=== PATIENT | female | born 1935 | race Caucasian/White ===

== ENCOUNTER 2019-10-11 20:19 | Inpatient (IN) ==
[2019-10-11 21:05] LABS: Basophils # (auto) 0.01 K/uL (0-0.2); Basophils % (auto) 0.1 %; Eosinophils # (auto) 0.01 K/uL (0-0.5); Eosinophils % (auto) 0.1 %; Hematocrit (blood only) 40.3 % (37-47); Hemoglobin 13.3 g/dL (12.0-16.0); Immature Granulocytes # (auto) 0.01 K/uL (0.00-0.02); Immature Granulocytes % (auto) 0.1 %; Lymphocytes # (auto) 0.63 K/uL (1.2-3.4); Lymphocytes % (auto) 7.7 %; Mean Corpuscular Hemoglobin 26.4 pg (25-34); Mean Platelet Volume 9.2 fL (7.4-10.4); Monocytes # (auto) 0.85 K/uL (0.11-0.59); Monocytes % (auto) 10.3 %; Neutrophils # (auto) 6.71 K/uL (1.4-6.5); Neutrophils % (auto) 81.7 %; Platelet Count 336 K/uL (130-400); RDW Coefficient of Variation 15.6 % (11.5-14.5); RDW Standard Deviation 45.3 fL (36.4-46.3); Red Blood Count 5.04 M/uL (4.2-5.4); White Blood Count 8.22 K/uL (4.8-10.8)
[2019-10-11 21:13] LABS: Alanine Aminotransferase 38 U/L (12-78); Albumin Level 2.3 gm/dl (3.4-5.0); Aspartate Aminotransferase 39 U/L (15-37); BUN Creatinine Ratio 12.8 (10-20); Blood Urea Nitrogen 16 mg/dl (7-18); Calcium 8.5 mg/dl (8.5-10.1); Carbon Dioxide 28 mmol/L (21-32); Chloride 101 mmol/L (98-107); Creatinine Clr Calc Pharmacy 34.1 ml/min; Est GFR (African American) 45.1; Est GFR (Non-African American) 38.9; Glucose 130 mg/dl (70-99); Lipase 102 U/L (73-393); Potassium 3.3 mmol/L (3.5-5.1); Sodium 136 mmol/L (136-145)
[2019-10-11] MEDS ORDERED: ONDANSETRON INJ 2 MG/ML 2 ML VIAL IV STA (21:14)
[2019-10-11] MEDS ORDERED: SODIUM CHLORIDE 0.9% 1000ML 1,000 ML IV ONE (21:14)
[2019-10-11 21:16] LABS: Albumin Globulin Ratio 0.5 (0.9-2); Alkaline Phosphatase 106 U/L (45-117); Bilirubin,Total 0.5 mg/dl (0.2-1); Globulin 4.2 gm/dl (2.5-4.0); Total Protein 6.5 gm/dl (6.4-8.2)
--- NOTE | 2019-10-11 21:20 | Emergency Department Note ---
Impression & Plan Diffuse abdominal pain, Vomiting and diarrhea, Acute dehydration, Hypokalemia ED Provider Note NAME: DENISE ALEJO AGE: 84 SEX: F : 1935 ARRIVES VIA: Ambulance INFORMANT: [Patient] ED PROVIDER(S): [Jame Bolden MD] CHIEF COMPLAINT: Vomiting HISTORY OF PRESENT ILLNESS: The patient is an 84-year-old female presents to the ER with vomiting. She states that she has vomited at least 3 times today. She has also had some loose, watery diarrhea. No blood in the stool or in the vomit. She has had some intermittent abdominal pain but nothing lasting or persistent, no current abdominal pain. No fever, chills, cough or congestion. No shortness of breath or chest pain. The patient does have known gallbladder disease and is concerned that her gallbladder is what is causing her to vomit. There have been no urinary complaints, no fall no trauma. The patient states that she is dry heaving continuously, she then progresses to the point of vomiting. She cannot keep anything down by mouth. REVIEW OF SYSTEMS: See HPI for pertinent positives and negatives. A total of ten systems were reviewed and were otherwise negative. PMHx/PSHx: See Below SOCIAL HISTORY: See Below. PHYSICAL EXAM: GENERAL: Patient is in no acute distress. HEENT: No acute trauma, normocephalic atraumatic, mucous membranes moist, no nasal congestion, mild scleral icterus. NECK: No stridor, no adenopathy, no meningismus, trachea is midline. LUNGS: Clear to auscultation bilaterally, no wheeze, no rhonchi, breath sounds equal. HEART: Without murmurs gallops or rubs, irregular rhythm, normal rate. ABDOMEN: Soft, nontender, bowel sounds positive, no hernias, no peritonitis. EXTREMITIES: No cyanosis or edema, full range of motion of all the joints without pain or difficulty, no signs for acute trauma. NEUROLOGIC: Awake and alert, no acute motor or sensory deficits, no focal weakness. SKIN: No rash, possible mild jaundice, no diaphoresis. DIFFERENTIAL DIAGNOSIS: Appendicitis, ovarian cyst, ovarian torsion, infections, diverticulitis, UTI, obstruction, mesenteric ischemia, aortic pathology, inflammatory bowel disease, renal colic, PUD, pancreatitis, biliary pathology, dehydration, gastritis, hernia, volvulus, constipation, as well as other pathologies. EMERGENCY DEPARTMENT COURSE/PROCEDURES: ECG: Indication was vomiting. The EKG shows atrial fibrillation with a PVC. The rate is 97. There is some diffuse nonspecific ST change. No ST elevation. The QTc is 495. Continuous Cardiac Monitoring: An order was placed for continuous cardiac monitoring. The monitor shows a rate of 105 with atrial fibrillation. MEDICAL DECISION MAKING: There is no leukocytosis or concerning anemia. There is a normal platelet count. Potassium was slightly low at 3.3. Creatinine was mildly elevated at 1.25. Patient had a slight elevation to her AST, the bilirubin was normal. No evidence for pancreatitis by her testing. EKG showed atrial fibrillation, no ac estelita ischemia. Cardiac enzyme testing x1 is not consistent with acute cardiac injury. Urinalysis shows what appears to be contamination, the patient is not having any urinary symptoms. Chest film showed some chronic parenchymal change and cardiomegaly. I saw no free air or pneumonia. Gallbladder ultrasound did not show evidence for acute cholecystitis, a gallstone was thought probable/possible. Abdominal and pelvis CT is currently pending. The patient presents with ongoing vomiting and some intermittent diarrhea. Today, she had a lot of vomiting and was sent here for the possibility of dehydration. The patient received IV saline for hydration. She was given IV potassium, IV Zofran, she is currently resting comfortably. I spoke to the patient and her daughter. They were both happy we were doing some work-up as the symptoms have been ongoing. The patient did apparently have an upcoming appointment with general surgery. As per the patient and her daughter, no significant work-up for her symptoms has been performed prior to the visit here in the ED. The patient's case is being assumed by Dr. Medina, please see his notes for the results of the CT and the final disposition and plan. At this point, the cause for her symptoms is not completely clear. Past Med/Surg History Medical History Atrial fibrillation Diabetes mellitus Hypertension Social History Feels Safe at Home: Yes Smoking Status: Former smoker Allergies Allergies Allergy/AdvReac Type Severity Reaction Status Date / Time No Known Allergies Allergy Verified 10/11/19 21:27 Home Meds Home Medications Medication Instructions Recorded Confirmed acetaminophen [Non-Aspirin] 650 mg PO Q4H PRN MDD 3000 MG 10/11/19 10/11/19 APAP/24 HOURS amiodarone 200 mg PO AMHS 10/11/19 10/11/19 apixaban [Eliquis] 2.5 mg PO BID 10/11/19 10/11/19 atorvastatin 40 mg PO HS 10/11/19 10/11/19 bisacodyl 10 mg [place] DAILY PRN 10/11/19 10/11/19 cholecalciferol (vitamin D3) 50,000 unit PO DIRECTED 10/11/19 10/11/19 cyanocobalamin (vitamin B-12) 1,000 mcg PO DAILY 10/11/19 10/11/19 [Vitamin B-12] diclofenac sodium 1 g TOPICAL TID 10/11/19 10/11/19 diltiazem HCl 120 mg PO QPM 10/11/19 10/11/19 ezetimibe 10 mg PO HS 10/11/19 10/11/19 furosemide 20 mg PO 3XWK 10/11/19 10/11/19 ketoconazole 1 applic TOPICAL 2XWK 10/11/19 10/11/19 ketoconazole 1 applic TOPICAL BID 10/11/19 10/11/19 lanolin-mineral oil [Eucerin 1 applic TOPICAL BID 10/11/19 10/11/19 Original] lisinopril 10 mg PO DAILY 10/11/19 10/11/19 magnesium hydroxide [Milk of 30 ml PO DIRECTED PRN 10/11/19 10/11/19 Magnesia] metformin 500 mg PO BID 10/11/19 10/11/19 metoprolol tartrate 100 mg PO BID 10/11/19 10/11/19 sennosides-docusate sodium [Senna 1 tab PO 3XWK 10/11/19 10/11/19 Plus] sertraline 50 mg PO QAM 10/11/19 10/11/19 sodium phosphates [Enema] 118 ml [place] DIRECTED PRN 10/11/19 10/11/19 tolnaftate [Tinactin] 1 applic TOPICAL DIRECTED 10/11/19 10/11/19 Results & Data (ED) Vital Signs Vital Signs - 24 hr 10/11/19 20:21 10/11/19 20:25 10/11/19 20:26 Temperature 36.7 C Temperature Source Oral Pulse Rate 105 H 90 106 H Pulse Rate from SpO2 Sensor 109 H 90 107 H Respiratory Rate 24 16 17 Respiratory Effort / Characteristics Non-Labored Spontaneous Respiratory Depth Normal Respiratory Pattern Regular Blood Pressure 149/92 H 151/81 H 149/92 H Blood Pressure Mean 100 110 111 Pulse Oximetry 95 96 96 Oxygen Delivery Method Room Air Sepsis Recent Fever Within 48 Hours No Sepsis New/Unexplained Change in Mental Status No Sepsis Action Taken by Nursing No Action Required 10/11/19 20:30 10/11/19 20:31 10/11/19 21:00 Temperature Temperature Source Pulse Rate 107 H 95 H 108 H Pulse Rate from SpO2 Sensor 108 H 110 H 107 H Respiratory Rate 24 18 28 H Respiratory Effort / Characteristics Respiratory Depth Respiratory Pattern Blood Pressure 136/87 137/85 Blood Pressure Mean 90 106 Pulse Oximetry 95 94 96 Oxygen Delivery Method Sepsis Recent Fever Within 48 Hours Sepsis New/Unexplained Change in Mental Status Sepsis Action Taken by Nursing 10/11/19 21:01 10/11/19 21:30 10/11/19 21:31 Temperature Temperature Source Pulse Rate 105 H 104 H 94 H Pulse Rate from SpO2 Sensor 101 H 110 H 106 H Respiratory Rate 22 25 H 30 H Respiratory Effort / Characteristics Respiratory Depth Respiratory Pattern Blood Pressure 146/117 H Blood Pressure Mean 127 Pulse Oximetry 96 95 97 Oxygen Delivery Method Sepsis Recent Fever Within 48 Hours Sepsis New/Unexplained Change in Mental Status Sepsis Action Taken by Nursing 10/11/19 21:45 10/11/19 21:46 10/11/19 22:00 Temperature Temperature Source Pulse Rate 96 H 100 H 100 H Pulse Rate from SpO2 Sensor 104 H 110 H 104 H Respiratory Rate 32 H 25 H 20 Respiratory Effort / Characteristics Respiratory Depth Respiratory Pattern Blood Pressure 147/91 H 156/87 H Blood Pressure Mean 122 113 Pulse Oximetry 97 97 96 Oxygen Delivery Method Sepsis Recent Fever Within 48 Hours Sepsis New/Unexplained Change in Mental Status Sepsis Action Taken by Nursing 10/11/19 22:01 10/11/19 22:56 10/11/19 22:57 Temperature Temperature Source Pulse Rate 96 H 104 H 105 H Pulse Rate from SpO2 Sensor 100 H 100 H Respiratory Rate 25 H 23 25 H Respiratory Effort / Characteristics Respiratory Depth Respiratory Pattern Blood Pressure 133/97 Blood Pressure Mean 112 Pulse Oximetry 96 96 Oxygen Delivery Method Sepsis Recent Fever Within 48 Hours Sepsis New/Unexplained Change in Mental Status Sepsis Action Taken by Group Home Medications Current Medication List: was personally reviewed by me Laboratory Data Attestation: I reviewed the patient's lab results. Result diagrams: 10/11/19 20:25 10/11/19 20:25 Lab Results 10/11/19 10/11/19 10/11/19 Range/Units 20:25 20:25 21:47 WBC 8.22 (4.8-10.8) K/uL RBC 5.04 (4.2-5.4) M/uL Hgb 13.3 (12.0-16.0) g/dL Hct 40.3 (37-47) % MCV 80.0 (80-100) fL MCH 26.4 (25-34) pg MCHC 33.0 (32-36) g/dL RDW Std Deviation 45.3 (36.4-46.3) fL RDW Coeff of Addi 15.6 H (11.5-14.5) % Plt Count 336 (130-400) K/uL MPV 9.2 (7.4-10.4) fL Immature Gran % (Auto) 0.1 % Neut % (Auto) 81.7 % Lymph % (Auto) 7.7 % [place] % (Auto) 10.3 % Eos % (Auto) 0.1 % Baso % (Auto) 0.1 % Immature Gran # (Auto) 0.01 (0.00-0.02) K/uL Neut # (Auto) 6.71 H (1.4-6.5) K/uL Lymph # (Auto) 0.63 L (1.2-3.4) K/uL [place] # (Auto) 0.85 H (0.11-0.59) K/uL Eos # (Auto) 0.01 (0-0.5) K/uL Baso # (Auto) 0.01 (0-0.2) K/uL Sodium 136 (136-145) mmol/L Potassium 3.3 L (3.5-5.1) mmol/L Chloride 101 (98-107) mmol/L Carbon Dioxide 28 (21-32) mmol/L Anion Gap 7.0 (3-11) BUN 16 (7-18) mg/dl Creatinine 1.25 H (0.6-1.2) mg/dl Est Cr Clr Drug Dosing 34.1 ml/min Est GFR ( Amer) 45.1 Est GFR (Non-Af Amer) 38.9 BUN/Creatinine Ratio 12.8 (10-20) Glucose 130 H (70-99) mg/dl Calcium 8.5 (8.5-10.1) mg/dl Total Bilirubin 0.5 (0.2-1) mg/dl AST 39 H (15-37) U/L ALT 38 (12-78) U/L Alkaline Phosphatase 106 (45-117) U/L Troponin I < 0.015 (0-0.045) ng/ml Total Protein 6.5 (6.4-8.2) gm/dl Albumin 2.3 L (3.4-5.0) gm/dl Globulin 4.2 H (2.5-4.0) gm/dl Albumin/Globulin Ratio 0.5 L (0.9-2) Lipase 102 (73-393) U/L Urine Color Yellow Urine Appearance Cloudy A (Clear) Urine pH 5.0 (4.5-7.5) Ur Specific [place] 1.011 (1.000-1.030) Urine Protein 2+ H (Negative) Urine Glucose (UA) Negative (Negative) Urine Ketones Negative (Negative) Urine Blood Trace H (Negative) Urine Nitrite Negative (Negative) Urine Bilirubin Negative (Negative) Urine Urobilinogen Negative (Negative) Ur Leukocyte Esterase Trace H (Negative) Urine WBC (Auto) 5-10 H (0-5) /hpf Urine RBC (Auto) 5-10 H (0-4) /hpf U Hyaline Cast (Auto) 1-5 (0-5) /lpf U Epithel Cells (Auto) >30 H (0-5) /lpf Urine Bacteria (Auto) 3+ H (Negative) Administered Medications Ioversol (Optiray 320 100ml) 100 ml IV ONCE PRN PRN Reason: Interaction Checking Stop: 10/15/19 23:35 Last Admin: 10/11/19 23:36 Dose: 93 ml Documented by: [id number] Discontinued Medications Sodium Chloride (Nss 1000ml) 1,000 mls @ 999 mls/hr IV .Q1H1M ONE Stop: 10/11/19 22:14 Last Infusion: 10/11/19 23:03 Dose: 0 mls/hr Documented by: [id number] Admin: 10/11/19 21:45 Dose: 999 mls/hr Documented by: [id number] Potassium Chloride (K Wallace / Wtr) 10 meq in 100 mls @ 100 mls/hr IV ONE ONE Stop: 10/11/19 22:59 Last Infusion: 10/11/19 23:12 Dose: 0 mls/hr Documented by: [id number] Admin: 10/11/19 22:10 Dose: 100 mls/hr Documented by: [id number] Ondansetron HCl (Zofran) 4 mg IV NOW STA Stop: 10/11/19 21:15 Last Admin: 10/11/19 21:45 Dose: 4 mg Documented by: [id number] Imaging Data Attestation: I personally reviewed and interpreted this imaging study as follows: My Impression: Chest film: The patient does have some cardiomegaly. There is some chronic parenchymal collin nge I suspect. I see no infiltrate, no pneumothorax. No free air. Radiologist's Impression: Ultrasound of the gallbladder: There is an echogenic foci in the gallbladder measuring 4 mm. This is consistent with a possible stone or polyp. No significant gallbladder wall thickening. The common bile duct was at the upper limits of normal at 8 mm. There is a small left renal cystic structure measuring 1.3 cm. Abdominal and pelvis CT: Pending. Blood Pressure Blood Pressure Findings: Elevated blood pressure Blood Pressure Disposition: further management by hospitalist Discharge Plan Visit Data Chief Complaint: Vomiting Stated Complaint: abd pain, [facility] ED Provider: Gianfranco Medina Discharge Problem: Diffuse abdominal pain, Vomiting and diarrhea, Acute dehydration, Hypokalemia Patient Disposition: Still a Patient Condition: Good Forms Stand Alone Forms: My [employer] Prescriptions Prescriptions: No Action atorvastatin 40 mg tablet 40 mg PO HS RF: 0 metformin 500 mg tablet 500 mg PO BID RF: 0 acetaminophen [Non-Aspirin] 325 mg Tablet 650 mg PO Q4H MDD 3000 MG APAP/24 HOURS PRN (Reason: Fever Or Pain) RF: 0 ketoconazole 2 % shampoo 1 applic TOPICAL 2XWK RF: 0 metoprolol tartrate 100 mg tablet 100 mg PO BID RF: 0 amiodarone 200 mg tablet 200 mg PO AMHS RF: 0 sennosides-docusate sodium [Senna Plus] 8.6-50 mg Tablet 1 tab PO 3XWK RF: 0 cyanocobalamin (vitamin B-12) [Vitamin B-12] 1,000 mcg tablet 1,000 mcg PO DAILY RF: 0 magnesium hydroxide [Milk of Magnesia] 400 mg/5 mL Suspension 30 ml PO DIRECTED PRN (Reason: Constipation) RF: 0 bisacodyl 10 mg Suppository 10 mg LA DAILY PRN (Reason: Constipation) RF: 0 lisinopril 10 mg tablet 10 mg PO DAILY RF: 0 Enema 19-7 gram/118 mL Enema 118 ml LA DIRECTED PRN (Reason: Constipation) RF: 0 diltiazem HCl 120 mg capsule,extended release 24hr 120 mg PO QPM RF: 0 tolnaftate [Tinactin] 1 % Powder 1 applic TOPICAL DIRECTED RF: 0 furosemide 20 mg tablet 20 mg PO 3XWK RF: 0 ketoconazole 2 % Cream 1 applic TOPICAL BID RF: 0 sertraline 50 mg tablet 50 mg PO QAM RF: 0 ezetimibe 10 mg tablet 10 mg PO HS RF: 0 Eucerin Original Lotion 1 applic TOPICAL BID RF: 0 cholecalciferol (vitamin D3) 1,250 mcg (50,000 unit) Capsule 50,000 unit PO DIRECTED RF: 0 diclofenac sodium 1 % gel 1 g TOPICAL TID RF: 0 Eliquis 2.5 mg tablet 2.5 mg PO BID RF: 0 Referrals Referrals: Jacobo Hutton [Primary Care Provider] -
[2019-10-11 21:57] LABS: Appearance Urine Cloudy (Clear); Bacteria Urine Automated 3+ (Negative); Bilirubin Urine Negative (Negative); Blood Urine Trace (Negative); Color Urine Yellow; Epithelial Cell Urine Auto >30 /lpf (0-5); Glucose Urine UA Negative (Negative); Ketones Urine Negative (Negative); Leukocyte Esterase Urine Trace (Negative); Nitrite Urine Negative (Negative); Protein Urine 2+ (Negative); Specific Gravity Urine 1.011 (1.000-1.030); Urobilinogen Urine Negative (Negative)
[2019-10-11] MEDS ORDERED: POTASSIUM CHLORIDE / WTR 10 MEQ/100 ML PLCT IV ONE (22:00)
[2019-10-11 22:31] LABS: Troponin I < 0.015 ng/ml (0-0.045)
[2019-10-11] MEDS ORDERED: IOVERSOL 100ml IV PRN (23:36)
--- NOTE | 2019-10-11 23:42 | Emergency Department Note ---
ED Visit Note ED Physician Sign Out Note: 84 yr old female with several months of nausea and vomiting concerning for GB pathology with worsening symptoms over the last day. Associated with diarrhea as well. She was given fluids, zofran and potassium earlier as well. Initially evaluated and work-up by Dr Bolden who signed patient out to me pending results of CT to rule out obstruction, etc. CT with concern Colitis vs Diverticulitis. Exam with mild LLQ abdominal pain but no guarding/rebound. Currently stable. Discussed pros/cons hospitalization and with shared decision making will bring in for further management. Given IV cipro/flagyl and hospitalist consulted for further management. Of note, UA clean catch with Bacteria, could just be contaminant though CT with bladder wall thickening as well. Cipro should cover it though. Gianfranco Medina MD
[2019-10-12] MEDS ORDERED: CIPROFLOXACIN / D5W 400 MG/200 ML BAG IV STA (00:20)
[2019-10-12] MEDS ORDERED: metroNIDAZOLE 500 MG/100 ML BAG IV STA (00:20)
--- NOTE | 2019-10-12 01:35 | History & Physical Report ---
Date of Service October 12, 2019 Assessment & Plan (1) Diverticulitis large intestine: Patient is a very pleasant 84 year old female with PMHx Atrial Fibrillation, DM2, HTN who presents with chief complaint of nausea, vomiting, and diarrhea. ED Course: NSS 1L, Zofran 4mg IV, 10 meq K IV, Ciprofloxacin 400mg IV, Metronidazole 500mg IV Diverticulitis -CT Ab/Pelv statrad read read diverticulosis with wall thickening and mild adjacent stranding involving the mid-distal descending and proximal sigmoid colon. Also noted gallbladder poly/stone. -GB US noted a 4mm polyp/stone in GB without GB wall thickening. -Patient was to have appointment with Dr. Lake (Gen Surg) on 10/13/19 to discuss her gallbladder -Ciprofloxacin 400mg IV q12h -Metronidazole 500mg IV q8h -NPO -Zofran PRN nausea -Tylenol PRN pain Acute Dehydration, secondary to Vomiting and Diarrhea -Zofran PRN nausea -NSS + 20meq K 100ml/hr Hypokalemia -Given 10meq K in ED -continue repletion with NSS + 20meq K 100ml/hr UTI -UA relatively dirty with Leuk Est, WBC, Bacteria 3+ -Expect coverage while on ciprofloxacin Atrial Fibrillation -Continue home Amiodarone -Continue home Diltiazem -Continue home Metoprolol Tartrate -Continue home Eliquis Diabetes Mellitus -SSI -Lantus 5mg qAM -Hold metformin -Continue home Atorvastatin -Continue home Ezetimibe Hypertension -Continue home Metoprolol tartrate -Continue home Diltiazem -Continue home Lisinopril -Continue home Lasix Dispo: Med/Surg Tele FEN: NPO, NSS +20meq KCl 100ml/hr x2L DVT: SCDs, Eliquis 2.5mg BID Code: DNR/DNi (2) Hypokalemia: (3) Acute dehydration: (4) Vomiting and diarrhea: (5) Diffuse abdominal pain: (6) Atrial fibrillation: (7) Hypertension: (8) Diabetes mellitus: (9) UTI (urinary tract infection): History of Present Illness Chief Complaint: Vomiting Primary Care Provider: Jacobo Hutton Patient is a very pleasant 84 year old female with PMHx Atrial Fibrillation, DM2, HTN who presents with chief complaint of nausea, vomiting, and diarrhea. Patient notes that her symptoms have actually been ongoing for "a few months now" and that she felt it was related to her gallbladder. She was to have an appointment with Dr. Lake on 10/13/19 to discuss possible removal. She states that at Noon today, after lunch, she had an episode of nausea and emesis after consuming tomato soup. She denies any hematochezia or dark coffee ground emesis. She notes that she had significant nausea with retching without vomit around dinner after consuming chicken noodle soup. Also throughout the day, patient noted 2x episodes of diarrhea without blood or tarry black stools, but cannot recall when they occurred. She notes that nothing specifically seems to trigger her symptoms. Currently patient notes that she feels over all well and denies any chest pain, abdominal pain, SOB, fever, chills. Allergies Allergy/AdvReac Type Severity Reaction Status Date / Time No Known Allergies Allergy Verified 10/11/19 21:27 Home Medications Home Medications Medication Instructions Recorded Confirmed Type Eliquis 2.5 mg PO BID 10/11/19 10/11/19 History Enema 118 ml [place] DIRECTED PRN 10/11/19 10/11/19 History Eucerin Original 1 applic TOPICAL BID 10/11/19 10/11/19 History acetaminophen [Non-Aspirin] 650 mg PO Q4H PRN MDD 3000 MG 10/11/19 10/11/19 History APAP/24 HOURS amiodarone 200 mg PO AMHS 10/11/19 10/11/19 History atorvastatin 40 mg PO HS 10/11/19 10/11/19 History bisacodyl 10 mg [place] DAILY PRN 10/11/19 10/11/19 History cholecalciferol (vitamin D3) 50,000 unit PO DIRECTED 10/11/19 10/11/19 History cyanocobalamin (vitamin B-12) 1,000 mcg PO DAILY 10/11/19 10/11/19 History [Vitamin B-12] diclofenac sodium 1 g TOPICAL TID 10/11/19 10/11/19 History diltiazem HCl 120 mg PO QPM 10/11/19 10/11/19 History ezetimibe 10 mg PO HS 10/11/19 10/11/19 History furosemide 20 mg PO 3XWK 10/11/19 10/11/19 History ketoconazole 1 applic TOPICAL 2XWK 10/11/19 10/11/19 History ketoconazole 1 applic TOPICAL BID 10/11/19 10/11/19 History lisinopril 10 mg PO DAILY 10/11/19 10/11/19 History magnesium hydroxide [Milk of 30 ml PO DIRECTED PRN 10/11/19 10/11/19 History Magnesia] metoprolol tartrate 100 mg PO BID 10/11/19 10/11/19 History sennosides-docusate sodium [Senna 1 tab PO 3XWK 10/11/19 10/11/19 History Plus] sertraline 50 mg PO QAM 10/11/19 10/11/19 History tolnaftate [Tinactin] 1 applic TOPICAL DIRECTED 10/11/19 10/11/19 History ciprofloxacin HCl 500 mg PO BID #14 tab 10/14/19 Rx metformin 500 mg PO BID #60 tab 10/14/19 Rx metronidazole 500 mg PO Q8H 7 Days #21 tab 10/14/19 Rx Past Med/Surg History Medical History Atrial fibrillation Diabetes mellitus Hypertension Social History Preferred Language: Cambodian Communication Ability: Effective Mixing Engineer Required: No Beliefs That Will Affect Care: None Current Living Situation: Personal Care Facility Feels Safe at Home: Yes Smoking Status: Former smoker Tobacco Type: cigarettes ; Second Hand Exposure: No ; Hx Alcohol Use: Yes Hx Substance Use: No Review of Systems Constitutional: no fever, no chills, no fatigue and no weakness Eyes: no worsening vision Ear, Nose, Mouth, Throat: no ear pain, no tinnitus and no dizziness Respiratory: + dyspnea (noted when vomiting or dry heaving, not current ); no cough and no hemoptysis Cardiovascular: no chest pain, no chest pain with activity, no radiating jaw, neck or arm pain, no dyspnea on exertion and no lightheadedness Gastrointestinal: + vomiting (earlier today, not current) and + diarrhea/loose stools (earlier today); no abdominal pain, no nausea (improved with zofran ), no coffee ground emesis, no hematemesis, no blood in stools and no melena Genitourinary: no dysuria, no difficulty urinating, no urinary frequency and no hematuria Musculoskeletal: no back pain Integumentary: no rash Neurologic: no falls Physical Exam Constitutional: WD/WN, vitals as above cooperative; no acute distress and not diaphoretic Eyes: PERRL, conjunctivae normal, anicteric sclerae ENMT: external ear and nose normal, oropharynx normal Mouth: + dentures and + edentulous Neck: trachea midline, no thyromegaly Respiratory: normal respiratory effort, lungs clear to auscultation Cardiovascular: Rate/Rhythm: + irregularly irregular Heart Sounds: no murmur Vessels: no JVD Extremities: no calf tenderness Gastrointestinal (Abdomen): Inspection/Auscultation: abdomen normal to inspection and normal bowel sounds; abdomen not distended Percussion/Palpation: + abdomen tender (LLQ ) and abdomen soft; abdomen not rigid, no abdominal mass and abdomen not firm Musculoskeletal: no cyanosis or clubbing, extremities motor strength 5/5 Skin: no rashes, warm and dry Neurologic: PERRL, EOMI, accommodation nl, no face palsy, no dysarthria Psychiatric: A+Ox3, euthymic affect Results & Data Results & Data ([facility]) Vital Signs (Past 12 Hours) Vital Signs Temp Pulse Resp BP Pulse Ox 10/12/19 01:01 95 H 22 97 10/12/19 01:00 84 22 135/88 96 10/12/19 00:31 100 H 20 95 10/12/19 00:30 94 H 19 145/98 H 95 10/12/19 00:01 101 H 17 96 10/12/19 00:00 98 H 19 154/100 H 94 10/11/19 23:44 85 22 97 10/11/19 23:43 92 H 26 H 143/102 H 96 10/11/19 23:32 97 H 20 10/11/19 23:01 93 H 31 H 96 10/11/19 23:00 103 H 30 H 152/84 H 98 10/11/19 22:58 97 H 25 H 97 10/11/19 22:57 105 H 25 H 133/97 96 10/11/19 22:56 104 H 23 10/11/19 22:01 96 H 25 H 96 10/11/19 22:00 100 H 20 156/87 H 96 10/11/19 21:46 100 H 25 H 97 10/11/19 21:45 96 H 32 H 147/91 H 97 10/11/19 21:31 94 H 30 H 97 10/11/19 21:30 104 H 25 H 146/117 H 95 10/11/19 21:01 105 H 22 96 10/11/19 21:00 108 H 28 H 137/85 96 10/11/19 20:31 95 H 18 94 10/11/19 20:30 107 H 24 136/87 95 10/11/19 20:26 36.7 C 106 H 17 149/92 H 96 10/11/19 20:25 90 16 151/81 H 96 10/11/19 20:21 105 H 24 149/92 H 95 Code Status & VTE Plan VTE Prophylaxis Plan VTE Prophylaxis will be ordered: Yes Supervising Physician Co-Signing Physician Notes Patient seen and examined on date of admission 10/12/19, chart reviewed, case discussed with Dr. Berrios and I agree with his assessment and plan as documented above. Briefly, patient is an 84yo C female with history of AF, DM, HTN pre senting with nausea/vomiting/diarrhea. Found to have diverticulosis with diverticulitis. On exam she is afebrile, HD stable, non-toxic in appearance HEENT - NC/AT, PERRL, EOMI, MMM Heart - +S1/S2, irregularly irregular LUngs - CTA Abd - mild tenderness in LLQ with no rebound/guarding/peritoneal signs, abdomen soft, ND Ext - No edema Labs and images reviewed Assessment/Plan - Diverticulitis -Cipro/Flagyl, symptomatic management -Remainder of plan as above PG Care Time/CCT Total # of Minutes Spent Total Time Spent with Patient: Total time spent is greater than 50% in coordination of care (as documented) at patient's floor/unit and/or counseling patient: Coding Level of Care Code 37743 Initial Inpt Care Lvl 3 Diagnoses Diverticulitis large intestine K57.32 Hypokalemia E87.6 Acute dehydration E86.0 Vomiting and diarrhea R11.10; R19.7 Diffuse abdominal pain R10.84 Atrial fibrillation I48.91 Hypertension I10 Diabetes mellitus E11.9 UTI (urinary tract infection) N39.0 Resident Activity Tracking Resident Involvement: Resident Care Provided Care Provided: Adult Hospital Medicine
[2019-10-12] MEDS ORDERED: GLUCOSE 40% GEL 15 GM TUBE PO PRN (02:27)
[2019-10-12] MEDS ORDERED: CARBOHYDRATES FOR HYPOGLYCEMIA PO PRN (02:27)
[2019-10-12] MEDS ORDERED: GLUCAGON FOR INJ 1 MG VIAL SQ PRN (02:27)
[2019-10-12] MEDS ORDERED: ACETAMINOPHEN 325 MG TAB PO PRN (02:27)
[2019-10-12] MEDS ORDERED: GLUCOSE 10 TABS/TUBE PO PRN (02:27)
[2019-10-12] MEDS ORDERED: DEXTROSE 50% 50 ML SYRINGE IV PRN (02:27)
[2019-10-12] MEDS ORDERED: ONDANSETRON INJ 2 MG/ML 2 ML VIAL IV PRN (02:27)
[2019-10-12] MEDS: NSS + 20MEQ KCL 20 MEQ/1,000 ML BAG IV SCH ×2 (04:21→13:18)
[2019-10-12] MEDS: INSULIN ASPART 100 UNITS/ML 3 ML PEN SC SCH ×3 (06:28→18:05)
--- NOTE | 2019-10-12 07:05 | Ultrasound Report ---
ULTRASOUND RIGHT UPPER QUADRANT ABDOMEN CLINICAL HISTORY: Vomiting. Generalized abdominal pain. Jaundice. COMPARISON STUDY: No priors. TECHNIQUE: Real-time, grayscale, and color flow sonography of the right upper quadrant of the abdomen was performed. Images are reviewed in the transverse and longitudinal planes. FINDINGS: Liver: The liver is normal in size and heterogeneous in echotexture. There is no intrahepatic biliary ductal dilatation. The main portal vein is patent. Gallbladder: A small calcified nonmobile/adherent gallstone is noted. A 4 mm gallbladder polyp is inc identally noted. There is no gallbladder wall thickening or pericholecystic fluid. A sonographic Murp hy's sign is reportedly absent. The common bile duct measures up to 0.8 cm in diameter. Pancreas: Visualized portions of the pancreatic head and body are normal in appearance. The splenic v ein is patent. Right kidney: Survey images of the right kidney demonstrate cortical atrophy. There is no hydronephro sis. 1.3 cm cyst is noted in the lower pole. Ascites: None. IMPRESSION: 1. No acute sonographic abnormality is identified. 2. A 4 mm gallbladder polyp and a nonmobile gallstone are incidentally noted. 3. There is no intra or extrahepatic biliary ductal dilatation. ACT 112: Negative or not required by law. Electronically signed by: Jame Christina M.D. 10/12/2019 7:03 AM
--- NOTE | 2019-10-12 07:11 | XRay Report ---
SINGLE VIEW CHEST CLINICAL HISTORY: Epigastric abdominal pain. FINDINGS: An AP, portable, upright chest radiograph is obtained. No prior studies are available for c omparison at the time of dictation. The examination is degraded by portable technique and patient rot ation. The heart is enlarged noting atherosclerotic calcification of the thoracic aorta. The pulmona ry vasculature is noncongested. There is bibasilar scarring/atelectasis. No airspace consolidation or large pleural effusion is identified. No pneumothorax is seen. The skeletal structures are osteopeni c. There are healed rib fractures. IMPRESSION: Cardiomegaly with no acute cardiopulmonary abnormality. ACT 112: Negative or not required by law. Electronically signed by: Jame Christina M.D. 10/12/2019 7:10 AM
--- NOTE | 2019-10-12 07:24 | CT Scan Report ---
CT abd pelvis IV con only CT DOSE: 994.66 mGy.cm HISTORY: Pain. Nausea. vomiting, poss obstruc vs colitis TECHNIQUE: Multiaxial CT images of the abdomen and pelvis were performed following the use of intrave nous contrast. A dose lowering technique was utilized adhering to the principles of ALARA. COMPARISON STUDY: None. FINDINGS: Lung bases are clear. The liver spleen and pancreas are unremarkable. Possible small gallbladder polyp. Kidneys are negative for hydronephrosis. Several renal calcifications as well as several small cysts. Nonobstructive bowel pattern within the abdomen and pelvis. Findings consistent with diverticulosis of the sigmoid as well as mid to distal descending colon. The re is a trace amount of pericolonic infiltrative change suggesting a component of acute diverticuliti s. No evidence for abscess collection or obstructive change. IMPRESSION: 1. Acute descending and sigmoid diverticulitis. 2. No evidence for abscess collection or obstructive change. 3. Small gallbladder polyp. 4. Renal nephrocalcinosis as well as a small right renal cyst all of which are considered nonobstruct papa. ACT 112: Negative or not required by law. The above report was generated using voice recognition software. It may contain grammatical, syntax or spelling errors. Electronically signed by: Herbert Echols M.D. 10/12/2019 7:23 AM
[2019-10-12] MEDS: lisinopriL 10 MG TAB PO SCH (08:37)
[2019-10-12] MEDS: APIXABAN 2.5 MG TAB PO SCH ×2 (08:37→21:20)
[2019-10-12] MEDS: AMIODARONE 200 MG TAB PO SCH ×2 (08:37→21:20)
[2019-10-12] MEDS: CYANOCOBALAMIN 500 MCG TABLET (VITAMIN B-12) PO SCH (08:37)
[2019-10-12] MEDS: METOPROLOL TARTRATE 100 MG TAB PO SCH ×2 (08:37→21:20)
[2019-10-12] MEDS: SERTRALINE HCL 50 MG TABLET PO SCH (08:38)
[2019-10-12] MEDS: INSULIN GLARGINE SOLOSTAR 100 UNITS/ML 3 ML PEN SC SCH (08:38)
[2019-10-12] MEDS: metroNIDAZOLE 500 MG/100 ML BAG IV SCH ×2 (10:56→18:03)
--- NOTE | 2019-10-12 12:02 | Electrocardiogram Report ---
Test Reason : Blood Pressure : / mmHG Vent. Rate : 097 BPM Atrial Rate : 107 BPM P-R Int : 000 ms QRS Dur : 096 ms QT Int : 390 ms P-R-T Axes : 000 095 -61 degrees QTc Int : 495 ms Atrial fibrillation with premature ventricular or aberrantly conducted complexes Rightward axis Nonspecific ST and T wave abnormality Abnormal ECG No previous ECGs available Confirmed by Alfred Lozada ([id number]) on 10/12/2019 12:01:42 PM Referred By: REFERRED SELF Confirmed By:Alfred Lozada
[2019-10-12] MEDS: CIPROFLOXACIN / D5W 400 MG/200 ML BAG IV SCH (13:18)
[2019-10-12 17:21] LABS: Basophils # (auto) 0.02 K/uL (0-0.2); Basophils % (auto) 0.4 %; Eosinophils # (auto) 0.02 K/uL (0-0.5); Eosinophils % (auto) 0.4 %; Hematocrit (blood only) 38.6 % (37-47); Hemoglobin 12.6 g/dL (12.0-16.0); Immature Granulocytes # (auto) 0.01 K/uL (0.00-0.02); Immature Granulocytes % (auto) 0.2 %; Lymphocytes # (auto) 0.62 K/uL (1.2-3.4); Lymphocytes % (auto) 11.5 %; Mean Corpuscular Hemoglobin 26.3 pg (25-34); Mean Corpuscular Hgb Conc 32.6 g/dL (32-36); Mean Corpuscular Volume 80.4 fL (80-100); Mean Platelet Volume 9.2 fL (7.4-10.4); Monocytes # (auto) 0.65 K/uL (0.11-0.59); Neutrophils # (auto) 4.09 K/uL (1.4-6.5); Neutrophils % (auto) 75.5 %; Platelet Count 332 K/uL (130-400); RDW Coefficient of Variation 15.7 % (11.5-14.5); RDW Standard Deviation 45.8 fL (36.4-46.3); White Blood Count 5.41 K/uL (4.8-10.8)
[2019-10-12 17:51] LABS: BUN Creatinine Ratio 12.2 (10-20); Calcium 8.1 mg/dl (8.5-10.1); Creatinine Clr Calc Pharmacy 38.1 ml/min; Est GFR (Non-African American) 49.2; Potassium 3.5 mmol/L (3.5-5.1)
[2019-10-12] MEDS: dilTIAZem HCL 120 MG CAPCR PO SCH (21:20)
[2019-10-12] MEDS: EZETIMIBE 10 MG TABLET PO SCH (21:20)
[2019-10-12] MEDS: ATORVASTATIN 40 MG TAB PO SCH (21:21)
--- NOTE | 2019-10-12 22:35 | Communication Note ---
Date of Service: October 12, 2019 Patient reports feeling better this evening. Patient has no new complaints. She is reporting that she is hungry. Will continue with antibiotics and will remain NPO at the time I updated her family.
[2019-10-13] MEDS: INSULIN ASPART 100 UNITS/ML 3 ML PEN SC SCH ×5 (00:31→20:56)
[2019-10-13] MEDS: CIPROFLOXACIN / D5W 400 MG/200 ML BAG IV SCH ×2 (00:38→12:31)
[2019-10-13] MEDS: metroNIDAZOLE 500 MG/100 ML BAG IV SCH ×3 (02:33→18:26)
[2019-10-13] MEDS: AMIODARONE 200 MG TAB PO SCH ×2 (08:19→20:57)
[2019-10-13] MEDS: METOPROLOL TARTRATE 100 MG TAB PO SCH ×2 (08:20→20:57)
[2019-10-13] MEDS: CYANOCOBALAMIN 500 MCG TABLET (VITAMIN B-12) PO SCH (08:20)
[2019-10-13] MEDS ORDERED: FUROSEMIDE 20 MG TAB PO SCH (09:00)
[2019-10-13] MEDS: APIXABAN 2.5 MG TAB PO SCH ×2 (09:44→20:57)
[2019-10-13] MEDS: lisinopriL 10 MG TAB PO SCH (09:44)
[2019-10-13] MEDS: SERTRALINE HCL 50 MG TABLET PO SCH (09:45)
[2019-10-13] MEDS: INSULIN GLARGINE SOLOSTAR 100 UNITS/ML 3 ML PEN SC SCH (09:45)
[2019-10-13 11:05] LABS: Hematocrit (blood only) 37.5 % (37-47); Hemoglobin 12.1 g/dL (12.0-16.0); Mean Corpuscular Hgb Conc 32.3 g/dL (32-36); Mean Corpuscular Volume 80.6 fL (80-100); Mean Platelet Volume 9.1 fL (7.4-10.4); Platelet Count 330 K/uL (130-400); RDW Coefficient of Variation 15.9 % (11.5-14.5); RDW Standard Deviation 46.8 fL (36.4-46.3); Red Blood Count 4.65 M/uL (4.2-5.4); White Blood Count 6.71 K/uL (4.8-10.8)
[2019-10-13 11:22] LABS: Albumin Level 2.2 gm/dl (3.4-5.0); BUN Creatinine Ratio 12.1 (10-20); Calcium 8.2 mg/dl (8.5-10.1); Creatinine Clr Calc Pharmacy 38.9 ml/min; Est GFR (African American) 58.4; Est GFR (Non-African American) 50.4; Potassium 3.5 mmol/L (3.5-5.1)
[2019-10-13 11:25] LABS: Albumin Globulin Ratio 0.6 (0.9-2); Bilirubin,Total 0.4 mg/dl (0.2-1); Globulin 3.6 gm/dl (2.5-4.0); Total Protein 5.8 gm/dl (6.4-8.2)
[2019-10-13] MEDS: ATORVASTATIN 40 MG TAB PO SCH (20:57)
[2019-10-13] MEDS: EZETIMIBE 10 MG TABLET PO SCH (20:57)
[2019-10-13] MEDS: dilTIAZem HCL 120 MG CAPCR PO SCH (20:57)
--- NOTE | 2019-10-13 22:43 | Hospitalist Progress Note ---
Date of Service October 13, 2019 Assessment & Plan (1) Diverticulitis large intestine: Patient is a very pleasant 84 year old female with PMHx Atrial Fibrillation, DM2, HTN who presents with chief complaint of nausea, vomiting, and diarrhea. ED Course: NSS 1L, Zofran 4mg IV, 10 meq K IV, Ciprofloxacin 400mg IV, Metronidazole 500mg IV Diverticulitis -CT Ab/Pelv statrad read read diverticulosis with wall thickening and mild adjacent stranding involving the mid-distal descending and proximal sigmoid colon. Also noted gallbladder poly/stone. -GB US noted a 4mm polyp/stone in GB without GB wall thickening. -Patient was to have appointment with Dr. Lake (Gen Surg) on 10/13/19 to discuss her gallbladder -Ciprofloxacin 400mg IV q12h -Metronidazole 500mg IV q8h -NOW on clear liquid, will advance to full. -Zofran PRN nausea -Tylenol PRN pain Acute Dehydration, secondary to Vomiting and Diarrhea -Zofran PRN nausea -NSS + 20meq K 100ml/hr Hypokalemia -replaced. UTI -UA relatively dirty with Leuk Est, WBC, Bacteria 3+ -Expect coverage while on ciprofloxacin Atrial Fibrillation -Continue home Amiodarone -Continue home Diltiazem -Continue home Metoprolol Tartrate -Continue home Eliquis Diabetes Mellitus -SSI -Lantus 5mg qAM -Hold metformin -Continue home Atorvastatin -Continue home Ezetimibe Hypertension -Continue home Metoprolol tartrate -Continue home Diltiazem -Continue home Lisinopril -Continue home Lasix Dispo: Med/Surg Tele FEN: NPO, NSS +20meq KCl 100ml/hr x2L DVT: SCDs, Eliquis 2.5mg BID Code: DNR/DNi (2) Hypokalemia: (3) Acute dehydration: (4) Vomiting and diarrhea: (5) Diffuse abdominal pain: (6) Atrial fibrillation: (7) Hypertension: (8) Diabetes mellitus: (9) UTI (urinary tract infection): Admission and Anticipated Discharge Date Admission Date: October 12, 2019 Subjective Patient reports no new symptoms at this time. Patient reports her pain has improved and has been tolerating her diet. She also denies any nausea, or vomiting. Review of Systems Review of Systems: All systems reviewed & are unremarkable except as noted in HPI & below Physical Exam Physical Exam: Constitutional: WD/WN, vitals as above cooperative; no acute distress and not diaphoretic Eyes: PERRL, conjunctivae normal, anicteric sclerae ENMT: external ear and nose normal, oropharynx normal Mouth: + dentures and + edentulous Neck: trachea midline, no thyromegaly Respiratory: normal respiratory effort, lungs clear to auscultation Cardiovascular: Rate/Rhythm: + irregularly irregular Heart Sounds: no murmur Vessels: no JVD Extremities: no calf tenderness Gastrointestinal (Abdomen): Inspection/Auscultation: abdomen normal to inspection and normal bowel sounds; abdomen not distended Percussion/Palpation: LLQ and abdomen soft; abdomen not rigid, no abdominal mass and abdomen not firm Musculoskeletal: no cyanosis or clubbing, extremities motor strength 5/5 Skin: no rashes, warm and dry Neurologic: PERRL, EOMI, accommodation nl, no face palsy, no dysarthria Psychiatric: A+Ox3, euthymic affect Results & Data Results & Data ([facility]) Vital Signs (Past 12 Hours) Vital Signs Temp Pulse Resp BP BP Pulse Ox 10/13/19 19:27 36.6 C 72 18 121/73 96 10/13/19 11:00 36.5 C 100 H 18 144/83 H 94 PG Care Time/CCT Total # of Minutes Spent Total Time Spent with Patient: Total time spent is greater than 50% in coordination of care (as documented) at patient's floor/unit and/or counseling patient: Coding Level of Care Code 67228 Subseq Hosp Care Lvl 2 Diagnoses Diverticulitis large intestine K57.32 Hypokalemia E87.6 Acute dehydration E86.0 Vomiting and diarrhea R11.10; R19.7 Diffuse abdominal pain R10.84 Atrial fibrillation I48.91 Hypertension I10 Diabetes mellitus E11.9 UTI (urinary tract infection) N39.0 Time Spent (min) 25
[2019-10-14] MEDS: CIPROFLOXACIN / D5W 400 MG/200 ML BAG IV SCH ×2 (01:00→12:10)
[2019-10-14] MEDS: metroNIDAZOLE 500 MG/100 ML BAG IV SCH ×2 (01:00→11:03)
[2019-10-14] MEDS: METOPROLOL TARTRATE 100 MG TAB PO SCH (08:36)
[2019-10-14] MEDS: CYANOCOBALAMIN 500 MCG TABLET (VITAMIN B-12) PO SCH (08:36)
[2019-10-14] MEDS: SERTRALINE HCL 50 MG TABLET PO SCH (08:37)
[2019-10-14] MEDS: APIXABAN 2.5 MG TAB PO SCH (08:37)
[2019-10-14] MEDS: lisinopriL 10 MG TAB PO SCH (08:37)
[2019-10-14] MEDS: AMIODARONE 200 MG TAB PO SCH (08:38)
[2019-10-14] MEDS: INSULIN ASPART 100 UNITS/ML 3 ML PEN SC SCH ×3 (08:39→17:31)
[2019-10-14] MEDS: INSULIN GLARGINE SOLOSTAR 100 UNITS/ML 3 ML PEN SC SCH (08:40)
[2019-10-14 12:09] LABS: Basophils # (auto) 0.02 K/uL (0-0.2); Basophils % (auto) 0.2 %; Eosinophils # (auto) 0.18 K/uL (0-0.5); Eosinophils % (auto) 2.1 %; Hematocrit (blood only) 36.4 % (37-47); Hemoglobin 11.4 g/dL (12.0-16.0); Immature Granulocytes # (auto) 0.03 K/uL (0.00-0.02); Immature Granulocytes % (auto) 0.4 %; Lymphocytes # (auto) 0.44 K/uL (1.2-3.4); Lymphocytes % (auto) 5.2 %; Mean Corpuscular Hemoglobin 25.3 pg (25-34); Mean Corpuscular Hgb Conc 31.3 g/dL (32-36); Mean Corpuscular Volume 80.9 fL (80-100); Mean Platelet Volume 8.8 fL (7.4-10.4); Monocytes # (auto) 0.88 K/uL (0.11-0.59); Monocytes % (auto) 10.4 %; Neutrophils # (auto) 6.95 K/uL (1.4-6.5); Neutrophils % (auto) 81.7 %; Platelet Count 328 K/uL (130-400); RDW Coefficient of Variation 15.9 % (11.5-14.5); RDW Standard Deviation 46.8 fL (36.4-46.3)
--- NOTE | 2019-10-20 14:25 | Discharge Summary ---
Date of Service October 14, 2019 Admission HPI Per Admitting Provider Patient is a very pleasant 84 year old female with PMHx Atrial Fibrillation, DM2, HTN who presents with chief complaint of nausea, vomiting, and diarrhea. Patient notes that her symptoms have actually been ongoing for "a few months now" and that she felt it was related to her gallbladder. She was to have an appointment with Dr. Lake on 10/13/19 to discuss possible removal. She states that at Noon today, after lunch, she had an episode of nausea and emesis after consuming tomato soup. She denies any hematochezia or dark coffee ground emesis. She notes that she had significant nausea with retching without vomit around dinner after consuming chicken noodle soup. Also throughout the day, patient noted 2x episodes of diarrhea without blood or tarry black stools, but cannot recall when they occurred. She notes that nothing specifically seems to trigger her symptoms. Currently patient notes that she feels over all well and denies any chest pain, abdominal pain, SOB, fever, chills. Principal Diagnosis Acute Diverticulitis Discharge Exam Constitutional: WD/WN, vitals as above cooperative; no acute distress and not diaphoretic Eyes: PERRL, conjunctivae normal, anicteric sclerae ENMT: external ear and nose normal, oropharynx normal Mouth: + dentures and + edentulous Neck: trachea midline, no thyromegaly Respiratory: normal respiratory effort, lungs clear to auscultation Cardiovascular: Rate/Rhythm: + irregularly irregular Heart Sounds: no murmur Vessels: no JVD Extremities: no calf tenderness Gastrointestinal (Abdomen): Inspection/Auscultation: abdomen normal to inspection and normal bowel sounds; abdomen not distended Percussion/Palpation: LLQ and abdomen soft; abdomen not rigid, no abdominal mass and abdomen not firm Musculoskeletal: no cyanosis or clubbing, extremities motor strength 5/5 Skin: no rashes, warm and dry Neurologic: PERRL, EOMI, accommodation nl, no face palsy, no dysarthria Psychiatric: A+Ox3, euthymic affect Discharge Data Allergies Allergy/AdvReac Type Severity Reaction Status Date / Time No Known Allergies Allergy Verified 10/11/19 21:27 Consultations 10/12/19 00:20 ED Decision to Admit Stat Ordered Studies 10/11/19 21:13 US gallbladder Urgent 10/11/19 23:16 CT abd pelvis IV con only Urgent Hospital Course (1) Diverticulitis large intestine: Patient is a very pleasant 84 year old female with PMHx Atrial Fibrillation, DM2, HTN who presents with chief complaint of nausea, vomiting, and diarrhea. ED Course: NSS 1L, Zofran 4mg IV, 10 meq K IV, Ciprofloxacin 400mg IV, Metronidazole 500mg IV Acute Diverticulitis -CT Ab/Pelv statrad read read diverticulosis with wall thickening and mild adjacent stranding involving the mid-distal descending and proximal sigmoid colon. Also noted gallbladder poly/stone. -GB US noted a 4mm polyp/stone in GB without GB wall thickening. -Patient was to have appointment with Dr. Lake (Gen Surg) on 10/13/19 to discuss her gallbladder -Ciprofloxacin 400mg IV q12h -Metronidazole 500mg IV q8h -Patient was NPO, then tranitioned to clear and then on low residue diet. Patient tolerated antibiotics and diet and pain improved. Patient was then discharged. -Zofran PRN nausea -Tylenol PRN pain Acute Dehydration, secondary to Vomiting and Diarrhea -Fluids were required IV. Hypokalemia -replaced. UTI -UA relatively dirty with Leuk Est, WBC, Bacteria 3+ -Expect coverage while on ciprofloxacin Atrial Fibrillation -Continue home Amiodarone -Continue home Diltiazem -Continue home Metoprolol Tartrate -Continue home Eliquis Diabetes Mellitus -SSI -Lantus 5mg qAM -Hold metformin -Continue home Atorvastatin -Continue home Ezetimibe Hypertension -Continue home Metoprolol tartrate -Continue home Diltiazem -Continue home Lisinopril -Continue home Lasix DVT: SCDs, Eliquis 2.5mg BID Code: DNR/DNi (2) Hypokalemia: (3) Acute dehydration: (4) Vomiting and diarrhea: (5) Diffuse abdominal pain: (6) Atrial fibrillation: (7) Hypertension: (8) Diabetes mellitus: (9) UTI (urinary tract infection): Total Time Total Time Spent Total Time Spent (In Minutes): 32 Total Time Includes: Examination of the Patient, Discharge Planning and Medication Reconciliation Discharge Plan Discharge Items Patient Disposition: Home - Self-Care Reason For Visit: VOMITING Discharge Diagnosis: acute diverticulitis Condition on Discharge: Good Activity: Resume your previous activity Non-emergency contact: Primary Care Provider Call non-emergency contact if: you have any medication questions Follow-up/Referrals: Jacobo Hutton [Primary Care Provider] - Diet: Carb Consistent or DM2 Addtl Attending Provider Instructions: You have been hospitalized for an acute medical problem. During your stay at [facility], we have made an effort to correct the problem that brought you to the hospital while keeping you as comfortable as possible. Medications were used to bring your condition under control and your discharge instructions will include directions for any medications you should take after leaving the hospital. Please make sure you see your Primary Care Provider as part of your follow up plan. Switched metformin to extended release to help with the diarrhea. Continue antibiotics for 7 more days. recommend followup with PCP in 7-10 days. Pending Studies at Discharge: No Stand-Alone Forms: [facility], Smoking Cessation Medications and DC Order Prescriptions: New metformin 500 mg tablet extended release 24 hr 500 mg PO BID Qty: 60 RF: 0 ciprofloxacin HCl 500 mg tablet 500 mg PO BID Qty: 14 RF: 0 metronidazole 500 mg tablet 500 mg PO Q8H 7 Days Qty: 21 RF: 0 Continued atorvastatin 40 mg tablet 40 mg PO HS RF: 0 acetaminophen [Non-Aspirin] 325 mg Tablet 650 mg PO Q4H MDD 3000 MG APAP/24 HOURS PRN (Reason: Fever Or Pain) RF: 0 ketoconazole 2 % shampoo 1 applic TOPICAL 2XWK RF: 0 metoprolol tartrate 100 mg tablet 100 mg PO BID RF: 0 amiodarone 200 mg tablet 200 mg PO AMHS RF: 0 sennosides-docusate sodium [Senna Plus] 8.6-50 mg Tablet 1 tab PO 3XWK RF: 0 cyanocobalamin (vitamin B-12) [Vitamin B-12] 1,000 mcg tablet 1,000 mcg PO DAILY RF: 0 magnesium hydroxide [Milk of Magnesia] 400 mg/5 mL Suspension 30 ml PO DIRECTED PRN (Reason: Constipation) RF: 0 bisacodyl 10 mg Suppository 10 mg NJ DAILY PRN (Reason: Constipation) RF: 0 lisinopril 10 mg tablet 10 mg PO DAILY RF: 0 Enema 19-7 gram/118 mL Enema 118 ml NJ DIRECTED PRN (Reason: Constipation) RF: 0 diltiazem HCl 120 mg capsule,extended release 24hr 120 mg PO QPM RF: 0 tolnaftate [Tinactin] 1 % Powder 1 applic TOPICAL DIRECTED RF: 0 furosemide 20 mg tablet 20 mg PO 3XWK RF: 0 ketoconazole 2 % Cream 1 applic TOPICAL BID RF: 0 sertraline 50 mg tablet 50 mg PO QAM RF: 0 ezetimibe 10 mg tablet 10 mg PO HS RF: 0 Eucerin Original Lotion 1 applic TOPICAL BID RF: 0 cholecalciferol (vitamin D3) 1,250 mcg (50,000 unit) Capsule 50,000 unit PO DIRECTED RF: 0 diclofenac sodium 1 % gel 1 g TOPICAL TID RF: 0 Eliquis 2.5 mg tablet 2.5 mg PO BID RF: 0 Discontinued metformin 500 mg tablet 500 mg PO BID RF: 0 Discharge Orders: Discharge Order (Routine); Ordered 10/14/19 Ordered By: Bj Webb Admission Data Admit Date/Time: 10/12/19 01:33 Attending Provider: Bj Webb Admit Provider: Soraya Luo Primary Care Provider: Jacobo Hutton Other Providers: Soraya Luo ; Holli CondonTom Other Interventions: Discharge Summary Assessment (RN) Last Done: 10/14/19 17:13 DC Date/Time DO NOT enter until pt leaves facility: 10/14/19 18:52 Coding Level of Care Code D/C Day Management >30 mins Diagnoses Diverticulitis large intestine K57.32 Hypokalemia E87.6 Acute dehydration E86.0 Vomiting and diarrhea R11.10; R19.7 Diffuse abdominal pain R10.84 Atrial fibrillation I48.91 Hypertension I10 Diabetes mellitus E11.9 UTI (urinary tract infection) N39.0
[2019-10-25] MEDS ORDERED: ERGOCALCIFEROL 50,000 UNITS CAP PO ONE (09:00)
== END 2019-10-14 18:52 | disposition home or self-care (01) | DRG 690 ==
LOC: ED 20:19 → 2N 10-12 01:33 → SUATTDRO 10-12 01:33 → 2N 10-12 01:51

== ENCOUNTER 2020-01-09 18:54 | Inpatient (IN) ==
--- NOTE | 2020-01-09 19:09 | Emergency Department Note ---
History of Present Illness General Chief complaint: Shortness of Breath/Dyspnea Time Seen by Provider: 01/09/20 18:55 Source: patient and EMS Mode of arrival: EMS History of Present Illness Provider complaint: Chest pain Onset (ago): hour(s) Location: chest Radiation: non-radiation Severity: mild Pain Consistency: + now resolved Quality: + sharp Exacerbated By: + none Associated symptoms: + shortness of breath; no cough, no fever/chills and no nausea/vomiting This is a 84-year-old female from [facility] presenting with shortness of breath and chest pain. The patient states that her chest pain started earlier today. She describes it as a sharp pain across her chest more on the right side. She states it is now resolved. Later in the day she developed shortness of breath. Her O2 saturation was found to be 86% on room air which went up to the 90s after administration of O2 via nasal cannula. She has had no cough or cold symptoms. She denies any fever. She has no nausea vomiting or diarrhea. She does state that she gets occasional abdominal pain b ut does not have any abdominal pain currently. She denies any leg swelling or pain. She states her breathing is much better after having been placed on oxygen. There are cases of COVID-19 in her intermediate per EMS but she has not come into contact with them. Home Medications Home Medications Medication Instructions Recorded Confirmed Type Liquid Protein Supp 30 ml PO BID 01/09/20 01/09/20 History acetaminophen [Tylenol] 650 mg PO Q4 PRN 01/09/20 01/09/20 History apixaban [Eliquis] 2.5 mg PO BID 01/09/20 01/09/20 History cyanocobalamin (vitamin B-12) 1,000 mcg PO DAILY 01/09/20 01/09/20 History diclofenac sodium [Voltaren] 1 ea TOPICAL TID 01/09/20 01/09/20 History diltiazem HCl [Cardizem CD] 120 mg PO QPM 01/09/20 01/09/20 History ergocalciferol (vitamin D2) 1,250 mcg PO 2XWK 01/09/20 01/09/20 History [Vitamin D2] ketoconazole [Nizoral] 1 applic TOPICAL BID 01/09/20 01/09/20 History lisinopril 10 mg PO DAILY 01/09/20 01/09/20 History magnesium hydroxide [Milk of 30 ml PO DAILY PRN 01/09/20 01/09/20 History Magnesia] metoprolol tartrate [Lopressor] 50 mg PO BID 01/09/20 01/09/20 History mineral oil-isopropyl myristat 1 applic TOPICAL AMHS 01/09/20 01/09/20 History [Eucerin] potassium chloride [Klor-Con 10] 20 meq PO DAILY 01/09/20 01/09/20 History sertraline [Zoloft] 25 mg PO QAM 01/09/20 01/09/20 History soap [Baby Shampoo] 1 ea TOPICAL HS 01/09/20 01/09/20 History tolnaftate 1 applic TOPICAL HS 01/09/20 01/09/20 History Allergies Allergy/AdvReac Type Severity Reaction Status Date / Time Cephalosporins Allergy Rash Verified 01/09/20 21:57 ciprofloxacin [From Cipro] Allergy Rash Verified 01/09/20 21:57 Past Med/Surg History Medical History (Updated 01/09/20 @ 23:30 by Terry Li MD) Atrial fibrillation Depression Diabetes mellitus Hypertension Surgical History (Updated 01/09/20 @ 22:47 by Soraya Luo DO) History of ankle surgery History of knee surgery Family History (Updated 01/09/20 @ 22:48 by Soraya Luo DO) Other Family history non-contributory Social History Smoking Status: Former smoker Second Hand Exposure: No; Hx Alcohol Use: Yes Hx Substance Use: No Preferred Language: Azerbaijani Communication Ability: Effective [employer] Work[employer] Helper Required: No Beliefs That Will Affect Care: None Current Living Situation: Personal Care Facility Feels Safe at Home: Yes Review of Systems See HPI for pertinent positives & negatives. and A total of 10 systems reviewed and were otherwise negative Physical Exam Vital Signs Vital Signs - 24 hr 01/09/20 18:50 01/09/20 19:06 01/09/20 20:00 Temperature 36.6 C Temperature Source Oral Pulse Rate 74 63 Pulse Rate [Apical] Pulse Rate from SpO2 Sensor 63 Respiratory Rate 24 24 Respiratory Effort / Characteristics Spontaneous Respiratory Depth Blood Pressure 202/70 H Blood Pressure [Right Arm] Blood Pressure Mean 114 Blood Pressure Mean [Right Arm] Pulse Oximetry 88 L 94 88 L Oxygen Delivery Method Room Air Nasal Cannula Room Air Oxygen Flow Rate 3 Sepsis New/Unexplained Change in Mental Status N/A Sepsis Action Taken by Nursing No Action Required Oxygen Flow Rate - Titration 3 Pulse Oximetry Post Tiitration 98 01/09/20 20:57 01/09/20 21:23 01/09/20 21:35 Temperature Temperature Source Pulse Rate 57 L 60 62 Pulse Rate [Apical] Pulse Rate from SpO2 Sensor 57 L 61 62 Respiratory Rate 26 H 33 H 27 H Respiratory Effort / Characteristics Respiratory Depth Blood Pressure 207/80 H 189/105 H 216/82 H Blood Pressure [Right Arm] Blood Pressure Mean 136 153 136 Blood Pressure Mean [Right Arm] Pulse Oximetry 95 97 96 Oxygen Delivery Method Nasal Cannula Nasal Cannula Nasal Cannula Oxygen Flow Rate 3 3 2 Sepsis New/Unexplained Change in Mental Status Sepsis Action Taken by Nursing Oxygen Flow Rate - Titration Pulse Oximetry Post Tiitration 01/09/20 21:36 01/09/20 22:01 01/09/20 22:30 Temperature Temperature Source Pulse Rate 57 L 57 L Pulse Rate [Apical] 63 Pulse Rate from SpO2 Sensor 57 L 56 L Respiratory Rate 26 H 27 H 28 H Respiratory Effort / Characteristics Non-Labored Spontaneous Respiratory Depth Normal Blood Pressure 193/96 H 194/94 H Blood Pressure [Right Arm] 216/82 H Blood Pressure Mean 156 165 Blood Pressure Mean [Right Arm] 126 Pulse Oximetry 97 98 97 Oxygen Delivery Method Nasal Cannula Nasal Cannula Nasal Cannula Oxygen Flow Rate 3 3 3 Sepsis New/Unexplained Change in Mental Status Sepsis Action Taken by Nursing Oxygen Flow Rate - Titration Pulse Oximetry Post Tiitration 01/09/20 23:00 Temperature Temperature Source Pulse Rate 54 L Pulse Rate [Apical] Pulse Rate from SpO2 Sensor 54 L Respiratory Rate 26 H Respiratory Effort / Characteristics Respiratory Depth Blood Pressure 172/85 H Blood Pressure [Right Arm] Blood Pressure Mean 120 Blood Pressure Mean [Right Arm] Pulse Oximetry 98 Oxygen Delivery Method Nasal Cannula Oxygen Flow Rate 3 Sepsis New/Unexplained Change in Mental Status Sepsis Action Taken by Nursing Oxygen Flow Rate - Titration Pulse Oximetry Post Tiitration Constitutional: Vital signs reviewed. Eyes: Pupils are equal round reactive to light. Conjunctiva are noninjected. ENT: Pharynx is clear without erythema or exudate. Mucous membranes are slightly dry. Neck supple without meningeal signs. Respiratory: Clear to auscultation bilaterally. Breath sounds are equal bilaterally. Cardiovascular: Irregularly irregular rhythm. Normal rate. No rubs or gallops. GI: Soft, nondistended and nontender. Bowel sounds are present. Musculoskeletal: No peripheral edema. No lower extremity tenderness. Integumentary: No cyanosis. or jaundice. Neurological: The patient is awake and alert. No focal deficits. Psychiatric: Normal affect. Not anxious appearing. Course Course 1936: The correctional case records supervisor Kimberlee tells me that the patient had a negative COVID-19 test 2 days ago per the intermediate 1938: She clarified that the testing was from December 30 and was negative. The testing for January 06 has not been resulted yet. The patient was kept in isolation and in house rapid testing was ordered. Administered Medications Discontinued Medications Furosemide (Furosemide 40 Mg/4 Ml Vial) 40 mg IV NOW STA Stop: 01/09/20 20:28 Last Admin: 01/09/20 21:17 Dose: 40 mg Documented by: [id number] Hydralazine HCl (Hydralazine Hcl 20 Mg/Ml Vial) 5 mg IV NOW STA Stop: 01/09/20 22:54 Last Admin: 01/09/20 22:59 Dose: Not Given Documented by: [id number] Hydralazine HCl (Hydralazine Hcl 20 Mg/Ml Vial) Confirm Administered Dose 20 mg .ROUTE .STK-MED ONE Stop: 01/09/20 22:51 Last Admin: 01/09/20 22:54 Dose: 5 mg Documented by: [id number] Ceftriaxone Sodium (Rocephin) 2,000 mg in 70 mls @ 140 mls/hr IV NOW STA Stop: 01/09/20 20:40 Last Admin: 01/09/20 21:27 Dose: Not Given Documented by: [id number] Piperacillin Sod/Tazobactam Sod (Zosyn) 4.5 gm in 120 mls @ 240 mls/hr IV NOW ONE Stop: 01/09/20 21:53 Last Infusion: 01/09/20 22:40 Dose: 0 mls/hr Documented by: [id number] Admin: 01/09/20 21:32 Dose: 240 mls/hr Documented by: [id number] Critical Care Time Critical Care Time: Yes Total Critical Care Time: 45 I have personally spent approximately 45 minutes of critical care time in the direct management of this patient. This includes bedside care, interpretation of diagnostic studies, and testing, discussion with consultants, patient, and family members, and other required patient management activities. These minutes are in excess of all separately billable procedures. Medical Decision Making Differential Diagnosis Pneumonia, COVID-19, unstable angina, MA, PE Medical Records Attestation: I reviewed the patient's medical records. The patient was admitted in October of this year for diverticulitis. She had a negative COVID-19 test at that time Home Medications Current Medication List: was personally reviewed by me Laboratory Data Attestation: I reviewed the patient's lab results. Result diagrams: 01/09/20 18:45 01/09/20 18:45 Lab Results 01/09/20 01/09/20 01/09/20 Range/Units 18:45 18:45 18:45 WBC 7.68 (4.8-10.8) K/uL RBC 5.21 (4.2-5.4) M/uL Hgb 13.9 (12.0-16.0) g/dL Hct 42.3 (37-47) % MCV 81.2 (80-100) fL MCH 26.7 (25-34) pg MCHC 32.9 (32-36) g/dL RDW Std Deviation 60.0 H (36.4-46.3) fL RDW Coeff of Addi 20.3 H (11.5-14.5) % Plt Count 388 (130-400) K/uL MPV 10.0 (7.4-10.4) fL Immature Gran % (Auto) 0.3 % Neut % (Auto) 86.6 % Lymph % (Auto) 6.3 % [place] % (Auto) 6.4 % Eos % (Auto) 0.3 % Baso % (Auto) 0.1 % Neut # (Auto) 6.66 H (1.4-6.5) K/uL Lymph # (Auto) 0.48 L (1.2-3.4) K/uL [place] # (Auto) 0.49 (0.11-0.59) K/uL Eos # (Auto) 0.02 (0-0.5) K/uL Baso # (Auto) 0.01 (0-0.2) K/uL Immature Gran # (Auto) 0.02 (0.00-0.02) K/uL Polychromasia 1+ Hypochromasia Present Anisocytosis Present Echinocytes 1+ PT 12.2 H (9.0-12.0) Seconds INR 1.2 H (0.9-1.1) APTT 34.9 H (21.0-31.0) Seconds PTT Ratio 1.3 Sodium 143 (136-145) mmol/L Potassium 3.1 L (3.5-5.1) mmol/L Chloride 104 (98-107) mmol/L Carbon Dioxide 33 H (21-32) mmol/L Anion Gap 6.0 (3-11) BUN 26 H (7-18) mg/dl Creatinine 0.88 (0.6-1.2) mg/dl Est Cr Clr Drug Dosing Not Reportable Est GFR ( Amer) 69.0 Est GFR (Non-Af Amer) 59.5 BUN/Creatinine Ratio 29.2 H (10-20) Glucose 187 H (70-99) mg/dl Calcium 8.4 L (8.5-10.1) mg/dl Total Bilirubin 0.6 (0.2-1) mg/dl AST 82 H (15-37) U/L ALT 50 (12-78) U/L Alkaline Phosphatase 150 H (45-117) U/L Troponin I 0.029 (0-0.045) ng/ml NT-Pro-B Natriuret Pep 93513 H (0-1800) pg/ml Total Protein 6.0 L (6.4-8.2) gm/dl Albumin 2.1 L (3.4-5.0) gm/dl Globulin 3.9 (2.5-4.0) gm/dl Albumin/Globulin Ratio 0.5 L (0.9-2) Urine Color Urine Appearance (Clear) Urine pH (4.5-7.5) Ur Specific [place] (1.000-1.030) Urine Protein (Negative) Urine Glucose (UA) (Negative) Urine Ketones (Negative) Urine Blood (Negative) Urine Nitrite (Negative) Urine Bilirubin (Negative) Urine Urobilinogen (Negative) Ur Leukocyte Esterase (Negative) Urine WBC (Auto) (0-5) /hpf Urine RBC (Auto) (0-4) /hpf U Hyaline Cast (Auto) (0-5) /lpf U Epithel Cells (Auto) (0-5) /lpf Urine Bacteria (Auto) (Negative) Ur Renal Epithelial Cell Urine Crystals Calcium Oxalate Crystal (None Prsent) COVID-19 Eval Order COVID-19 PCR (Negative) Influenza Type A (PCR) (Neg) Influenza Type B (PCR) (Neg) 01/09/20 01/09/20 01/09/20 Range/Units 19:40 19:40 19:40 WBC (4.8-10.8) K/uL RBC (4.2-5.4) M/uL Hgb (12.0-16.0) g/dL Hct (37-47) % MCV (80-100) fL MCH (25-34) pg MCHC (32-36) g/dL RDW Std Deviation (36.4-46.3) fL RDW Coeff of Addi (11.5-14.5) % Plt Count (130-400) K/uL MPV (7.4-10.4) fL Immature Gran % (Auto) % Neut % (Auto) % Lymph % (Auto) % [place] % (Auto) % Eos % (Auto) % Baso % (Auto) % Neut # (Auto) (1.4-6.5) K/uL Lymph # (Auto) (1.2-3.4) K/uL [place] # (Auto) (0.11-0.59) K/uL Eos # (Auto) (0-0.5) K/uL Baso # (Auto) (0-0.2) K/uL Immature Gran # (Auto) (0.00-0.02) K/uL Polychromasia Hypochromasia Anisocytosis Echinocytes PT (9.0-12.0) Seconds INR (0.9-1.1) APTT (21.0-31.0) Seconds PTT Ratio Sodium (136-145) mmol/L Potassium (3.5-5.1) mmol/L Chloride (98-107) mmol/L Carbon Dioxide (21-32) mmol/L Anion Gap (3-11) BUN (7-18) mg/dl Creatinine (0.6-1.2) mg/dl Est Cr Clr Drug Dosing Est GFR ( Amer) Est GFR (Non-Af Amer) BUN/Creatinine Ratio (10-20) Glucose (70-99) mg/dl Calcium (8.5-10.1) mg/dl Total Bilirubin (0.2-1) mg/dl AST (15-37) U/L ALT (12-78) U/L Alkaline Phosphatase (45-117) U/L Troponin I (0-0.045) ng/ml NT-Pro-B Natriuret Pep (0-1800) pg/ml Total Protein (6.4-8.2) gm/dl Albumin (3.4-5.0) gm/dl Globulin (2.5-4.0) gm/dl Albumin/Globulin Ratio (0.9-2) Urine Color Dark Yellow Urine Appearance Cloudy A (Clear) Urine pH 6.5 (4.5-7.5) Ur Specific [place] 1.029 (1.000-1.030) Urine Protein 4+ H (Negative) Urine Glucose (UA) 1+ H (Negative) Urine Ketones Negative (Negative) Urine Blood 2+ H (Negative) Urine Nitrite Positive A (Negative) Urine Bilirubin Negative (Negative) Urine Urobilinogen Positive H (Negative) Ur Leukocyte Esterase Negative (Negative) Urine WBC (Auto) 5-10 H (0-5) /hpf Urine RBC (Auto) 0-4 (0-4) /hpf U Hyaline Cast (Auto) 10-30 H (0-5) /lpf U Epithel Cells (Auto) >30 H (0-5) /lpf Urine Bacteria (Auto) 2+ H (Negative) Ur Renal Epithelial Cell Not Reportable Urine Crystals Not Reportable Calcium Oxalate Crystal Present A (None Prsent) COVID-19 Eval Order Covid19 Done at [facility] COVID-19 PCR (Negative) Influenza Type A (PCR) Neg for Influ A (Neg) Influenza Type B (PCR) Neg for Influ B (Neg) 01/09/20 Range/Units 19:40 WBC (4.8-10.8) K/uL RBC (4.2-5.4) M/uL Hgb (12.0-16.0) g/dL Hct (37-47) % MCV (80-100) fL MCH (25-34) pg MCHC (32-36) g/dL RDW Std Deviation (36.4-46.3) fL RDW Coeff of Addi (11.5-14.5) % Plt Count (130-400) K/uL MPV (7.4-10.4) fL Immature Gran % (Auto) % Neut % (Auto) % Lymph % (Auto) % [place] % (Auto) % Eos % (Auto) % Baso % (Auto) % Neut # (Auto) (1.4-6.5) K/uL Lymph # (Auto) (1.2-3.4) K/uL [place] # (Auto) (0.11-0.59) K/uL Eos # (Auto) (0-0.5) K/uL Baso # (Auto) (0-0.2) K/uL Immature Gran # (Auto) (0.00-0.02) K/uL Polychromasia Hypochromasia Anisocytosis Echinocytes PT (9.0-12.0) Seconds INR (0.9-1.1) APTT (21.0-31.0) Seconds PTT Ratio Sodium (136-145) mmol/L Potassium (3.5-5.1) mmol/L Chloride (98-107) mmol/L Carbon Dioxide (21-32) mmol/L Anion Gap (3-11) BUN (7-18) mg/dl Creatinine (0.6-1.2) mg/dl Est Cr Clr Drug Dosing Est GFR ( Amer) Est GFR (Non-Af Amer) BUN/Creatinine Ratio (10-20) Glucose (70-99) mg/dl Calcium (8.5-10.1) mg/dl Total Bilirubin (0.2-1) mg/dl AST (15-37) U/L ALT (12-78) U/L Alkaline Phosphatase (45-117) U/L Troponin I (0-0.045) ng/ml NT-Pro-B Natriuret Pep (0-1800) pg/ml Total Protein (6.4-8.2) gm/dl Albumin (3.4-5.0) gm/dl Globulin (2.5-4.0) gm/dl Albumin/Globulin Ratio (0.9-2) Urine Color Urine Appearance (Clear) Urine pH (4.5-7.5) Ur Specific [place] (1.000-1.030) Urine Protein (Negative) Urine Glucose (UA) (Negative) Urine Ketones (Negative) Urine Blood (Negative) Urine Nitrite (Negative) Urine Bilirubin (Negative) Urine Urobilinogen (Negative) Ur Leukocyte Esterase (Negative) Urine WBC (Auto) (0-5) /hpf Urine RBC (Auto) (0-4) /hpf U Hyaline Cast (Auto) (0-5) /lpf U Epithel Cells (Auto) (0-5) /lpf Urine Bacteria (Auto) (Negative) Ur Renal Epithelial Cell Urine Crystals Calcium Oxalate Crystal (None Prsent) COVID-19 Eval Order COVID-19 PCR NEGATIVE (Negative) Influenza Type A (PCR) (Neg) Influenza Type B (PCR) (Neg) Imaging Data Radiologist's Impression: XR chest 1V portable CLINICAL HISTORY: Dyspnea COMPARISON STUDY: 10/11/2019 FINDINGS: The heart is enlarged. There is radiographic evidence of congestive failure with bilateral pleural effusions. There are bibasilar opacity statistically atelectatic.[ IMPRESSION: Cardiomegaly and radiographic evidence of congestive failure and bilateral pleural effusions. ACT 112: Negative or not required by law. Electronically signed by: Roc Bae M.D. 01/09/2020 8:03 PM Dictated: 01/09/202002 Transcribed: 01/09/202002 CTA CHEST: No central or large pulmonary embolus identified. Evaluation of the pulmonary arterial branches is limited by motion artifacts. Small distal PEs cannot be entirely excluded. Atherosclerotic changes of the aorta. No aortic aneurysm or dissection. Moderate to large bilateral pleural effusions. Associated atelectasis. Mild patchy density in the right upper lobe may represent atelectasis versus infectious/inflammatory process. Heterogeneous thyroid could be further evaluated with nonemergent dedicated ultrasound if clinically indicated. Nonspecific mildly prominent mediastinal lymph nodes. Cardiomegaly. Body wall edema. Radiologist: Daniel Segovia M.D. Study ready at 20:59 and initial results transmitted at 21:10 ECG Data Attestation: I personally reviewed and interpreted this ECG as follows: Indication: + chest pain Rate (beats per minute): 58 Rhythm: + sinus bradycardia ECG [place]: + Right axis deviation ECG ST segments: no ST elevation ECG Findings: + Other (Severely limited interpretation of the precordial leads V4 to V6 due to motion artifact.); no PVCs Blood Pressure Blood Pressure Findings: Elevated blood pressure Blood Pressure Disposition: Referred to patients primary care provider MDM Narrative I did evaluate the patient as noted above. The patient is presenting with chest pain and shortness of breath. Her chest pain is now resolved and her shortness of breath is much better after being given oxygen. 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 I did order testing for COVID-19 and influenza. IV access was established. I did place an order for continuous cardiac monitoring. The monitor showed atrial fibrillation with a rate of 86 bpm. I did order and personally review the patient's 12-lead EKG as described above. The patient's O2 saturations went down to 80% on room air. She was continued on oxygen via nasal cannula 3 L/min. Her O2 saturation went up to 98%. I did order and personally reviewed the i mages of the patient's chest x-ray as described above. She has bilateral pleural effusions and signs of CHF. No pneumonia was noted. I did treat the patient with IV Lasix. Blood cultures were ordered. I did order a urine analysis. She does have a significant UTI. I did treat her with Zosyn IV. I did order and review the patient's blood work as noted in the electronic medical record. She does not have leukocytosis or anemia. Her BNP is significantly elevated. She has hypokalemia with a potassium of 3.1. This is chronic for her. Troponin is negative. Flu and COVID testing were both negative. Given the patient's hypoxemia, chest pain and sudden shortness of breath I did feel it was important to rule out pulmonary embolism despite her being on Eliquis. I did order a CT angiogram of the chest. I did review the images myself as well as the radiology report as described above. There is no evidence of pulmonary embolus. She does have patchy infiltrate to the right upper lobe as well as bilateral pleural effusions. I did reassess the patient. She was taken off of respiratory isolation. I did discuss test results with the patient and her niece. She will be hospitalized for further care and evaluation. I did discuss the case with the hospitalist and correctional case records supervisor. Impression & Plan Hypoxemia, Acute exacerbation of CHF (congestive heart failure), Bilateral pleural effusion, Acute hypokalemia, Chest pain Discharge Plan Visit Data Chief Complaint: Shortness of Breath/Dyspnea ED Provider: Terry Li Discharge Problem: Hypoxemia, Acute exacerbation of CHF (congestive heart failure), Bilateral pleural effusion, Acute hypokalemia, Chest pain Patient Disposition: Being Evaluated by Hospitalist Discharge Instructions Interventions: ED Discharge Assessment Last Done: 01/09/20 23:20 Forms Stand Alone Forms: [facility] Prescriptions Prescriptions: No Action ketoconazole [Nizoral] 2 % shampoo 1 applic TOPICAL BID RF: 0 cyanocobalamin (vitamin B-12) 1,000 mcg tablet 1,000 mcg PO DAILY RF: 0 potassium chloride [Klor-Con 10] 10 mEq tablet extended release 20 meq PO DAILY RF: 0 lisinopril 10 mg Tablet 10 mg PO DAILY RF: 0 metoprolol tartrate [Lopressor] 50 mg tablet 50 mg PO BID RF: 0 sertraline [Zoloft] 25 mg tablet 25 mg PO QAM RF: 0 diltiazem HCl [Cardizem CD] 120 mg capsule,extended release 24hr 120 mg PO QPM RF: 0 tolnaftate 1 % Powder 1 applic TOPICAL HS RF: 0 ergocalciferol (vitamin D2) [Vitamin D2] 1,250 mcg (50,000 unit) Capsule 1,250 mcg PO 2XWK RF: 0 Eucerin Lotion 1 applic TOPICAL AMHS RF: 0 Baby Shampoo Shampoo 1 ea TOPICAL HS RF: 0 diclofenac sodium [Voltaren] 1 % gel 1 ea TOPICAL TID RF: 0 Eliquis 2.5 mg tablet 2.5 mg PO BID RF: 0 Liquid Protein Supp 30 ml PO BID RF: 0 acetaminophen [Tylenol] 325 mg Tablet 650 mg PO Q4 PRN (Reason: fever/pain) RF: 0 magnesium hydroxide [Milk of Magnesia] 400 mg/5 mL Suspension 30 ml PO DAILY PRN (Reason: .no bm 3 days) RF: 0 Referrals Referrals: Jacobo Hutton [Primary Care Provider] -
[2020-01-09 19:20] LABS: Basophils # (auto) 0.01 K/uL (0-0.2); Basophils % (auto) 0.1 %; Eosinophils # (auto) 0.02 K/uL (0-0.5); Eosinophils % (auto) 0.3 %; Hematocrit (blood only) 42.3 % (37-47); Hemoglobin 13.9 g/dL (12.0-16.0); Immature Granulocytes # (auto) 0.02 K/uL (0.00-0.02); Immature Granulocytes % (auto) 0.3 %; Lymphocytes # (auto) 0.48 K/uL (1.2-3.4); Lymphocytes % (auto) 6.3 %; Mean Corpuscular Hemoglobin 26.7 pg (25-34); Mean Corpuscular Hgb Conc 32.9 g/dL (32-36); Mean Corpuscular Volume 81.2 fL (80-100); Monocytes # (auto) 0.49 K/uL (0.11-0.59); Monocytes % (auto) 6.4 %; Neutrophils # (auto) 6.66 K/uL (1.4-6.5); Neutrophils % (auto) 86.6 %; Platelet Count 388 K/uL (130-400); RDW Coefficient of Variation 20.3 % (11.5-14.5); Red Blood Count 5.21 M/uL (4.2-5.4); White Blood Count 7.68 K/uL (4.8-10.8)
[2020-01-09 19:29] LABS: INR 1.2 (0.9-1.1); Partial Thromboplastin Ratio 1.3; Partial Thromboplastin Time 34.9 Seconds (21.0-31.0); Prothrombin Time 12.2 Seconds (9.0-12.0)
[2020-01-09 19:37] LABS: Alanine Aminotransferase 50 U/L (12-78); Albumin Level 2.1 gm/dl (3.4-5.0); Aspartate Aminotransferase 82 U/L (15-37); BUN Creatinine Ratio 29.2 (10-20); Blood Urea Nitrogen 26 mg/dl (7-18); Calcium 8.4 mg/dl (8.5-10.1); Carbon Dioxide 33 mmol/L (21-32); Chloride 104 mmol/L (98-107); Est GFR (Non-African American) 59.5; Glucose 187 mg/dl (70-99); Potassium 3.1 mmol/L (3.5-5.1); Sodium 143 mmol/L (136-145)
[2020-01-09 19:38] LABS: Anisocytosis Present; Echinocytes 1+; Hypochromasia Present; Polychromasia 1+
[2020-01-09 19:41] LABS: Albumin Globulin Ratio 0.5 (0.9-2); Alkaline Phosphatase 150 U/L (45-117); Bilirubin,Total 0.6 mg/dl (0.2-1); Globulin 3.9 gm/dl (2.5-4.0); NT Pro B Type Natriuretic Pept 23976 pg/ml (0-1800); Troponin I 0.029 ng/ml (0-0.045)
--- NOTE | 2020-01-09 20:05 | XRay Report ---
XR chest 1V portable CLINICAL HISTORY: Dyspnea COMPARISON STUDY: 10/11/2019 FINDINGS: The heart is enlarged. There is radiographic evidence of congestive failure with bilateral pleural effusions. There are bibasilar opacity statistically atelectatic.[ IMPRESSION: Cardiomegaly and radiographic evidence of congestive failure and bilateral pleural effusi ons. ACT 112: Negative or not required by law. Electronically signed by: Roc Bae M.D. 01/09/2020 8:03 PM
[2020-01-09 20:07] LABS: Appearance Urine Cloudy (Clear); Bacteria Urine Automated 2+ (Negative); Bilirubin Urine Negative (Negative); Blood Urine 2+ (Negative); Color Urine Dark Yellow; Epithelial Cell Urine Auto >30 /lpf (0-5); Glucose Urine UA 1+ (Negative); Ketones Urine Negative (Negative); Leukocyte Esterase Urine Negative (Negative); Nitrite Urine Positive (Negative); Protein Urine 4+ (Negative); Specific Gravity Urine 1.029 (1.000-1.030); Urobilinogen Urine Positive (Negative); pH Urine 6.5 (4.5-7.5)
[2020-01-09] MEDS ORDERED: cefTRIAXone SODIUM 2,000 MG/70 ML BAG IV STA (20:11)
[2020-01-09 20:15] LABS: Calcium Oxalate Crystals Urine Present (None Prsent)
[2020-01-09 20:17] LABS: RBC Urine Automated 0-4 /hpf (0-4)
[2020-01-09] MEDS ORDERED: FUROSEMIDE 40 MG/4 ML VIAL IV STA (20:27)
[2020-01-09 20:39] LABS: Influenza A virus by PCR Neg for Influ A (Neg); Influenza B virus by PCR Neg for Influ B (Neg)
[2020-01-09] MEDS ORDERED: OPTIRAY 320 125ml IV ONE (20:52)
[2020-01-09] MEDS ORDERED: PIPERACILL/TAZOBAC CONSULT ACTIVE PRN (21:24)
[2020-01-09] MEDS ORDERED: PIPERACILLIN/TAZOBACTAM 4.5 GM/120 ML BAG IV ONE (21:24)
[2020-01-09] MEDS ORDERED: HydrALAZINE HCL 20 MG/ML VIAL ONE (22:50)
[2020-01-09] MEDS ORDERED: HydrALAZINE HCL 20 MG/ML VIAL IV STA (22:53)
--- NOTE | 2020-01-09 23:01 | History & Physical Report ---
Date of Service January 09, 2020 Assessment & Plan (1) Volume overload: 84-year-old female presenting with multiple complaints. Found to have moderate to large bilateral pleural effusions, 3+ pitting edema bilateral lower extremities and elevated BNP of 23,976. ?CHF. Patient was a dministered Lasix 40 mg IV in the ER and placed on supplemental oxygen. She is currently saturating well, 97% on 3 L. Admit to PCU Continue supplemental oxygen as needed to maintain saturations greater than 92% Diuresis with Lasix 40 mg IV twice daily Check BMP every 12 hours while diuresing with electrolyte supplementation as needed Monitor strict intake and output and daily weights Check 2D echo Check TSH Repeat PA/lateral chest x-ray after aggressive diuresis to assess pleural effusions. Patient may need thoracentesis if her clinical condition worsens effusions fail to improve with medical therapy Present on Admission?: Yes (2) Nausea & vomiting: Patient with persistent nausea and vomiting for at least 3 months. Patient was to be evaluated by general surgery for possible gallbladder disease. She had a CT of the abdomen and pelvis as well as a gallbladder ultrasound performed on 10/10/2024 during an admission for acute diverticulitis. Studies revealed small gallbladder polyp as well as a small calcified nonmobile/adherent gallstone. Liver studies today with elevated alkaline phosphatase at 150, normal total bilirubin at 0.6 and mildly elevated AST at 82. Uncertain if patient symptoms can be explained by gallbladder disease. Question gastric motility/gastroparesis is a possibility as well. Obtain right upper quadrant ultrasound Repeat LFTs in a.m. Consider trial of promotility agent after acute issues resolve Present on Admission?: Yes (3) Diarrhea: Patient reports frequent diarrhea. Nonbloody/nonmucoid Check stool for C. difficile Present on Admission?: Yes (4) Hypertension: Longstanding history of hypertension. Per report, blood pressure has been running high at the [facility] over the last week. High in the ER as well. 2D echo as above Continue antihypertensive agents. Diltiazem 120 mg p.o. every afternoondose ordered to be given when patient gets to the floor Lisinopril 10 mg p.o. daily-dose ordered to be given when patient gets to the floor Metoprolol 50 mg p.o. twice daily Present on Admission?: Yes (5) Diabetes mellitus: Chronic. Blood sugar elevated 187 today. Check hemoglobin A1c with morning labs Hold metformin Insulin sliding scale, goal blood sugar 100-140 Present on Admission?: Yes (6) Atrial fibrillation: Patient sinus bradycardia on EKG, sounds irregular on exam. Continue metoprolol Continue diltiazem Anticoagulation with apixaban Present on Admission?: Yes (7) Depression: Chronic. Stable. -Continue sertraline FENdiuresis with Lasix 40 mg IV twice daily, monitor electrolytes with BMP every 12 hours, potassium repletion with 60 mEq, check magnesium and phosphorus and replete as needed, consistent carb/heart healthy diet as tolerated Prophylaxiscontinue Eliquis at home dose CodeDNR/DNR per discussion with patient Dispositionadmit to PCU Present on Admission?: Yes History of Present Illness Chief Complaint: Nausea, vomiting, shortness of breath and chest pain Primary Care Provider: Jacobo Hutton Rachell Da Silva is an 84-year-old female [facility] with complaints of persistent nausea, vomiting and diarrhea which is been ongoing for the last few months. Patient becomes nauseous after meals and typically vomits at least once per day. Nonbloody/nonbilious. She also reports diarrhea, occasional episodes of fecal incontinence. Patient was to see Dr. Lake for evaluation for possible cholecystectomy. Patient was admitted in October 2019 for acute diverticulitis for which she was treated with Cipro and Flagyl. Additionally, she is complaining of progressive weakness and fatigue over the last 2 weeks, shortness of breath x1 to 2 days as well as occasional substernal chest pain and worsening bilateral lower extremity edema. She denies fever/chills/cough/dysuria. No additional complaints at this time. On arrival to the ER patient afebrile, hypertensive and bradycardic saturating 88% on room air. ER course: Zosyn 4.5 g, Lasix 40 mg Allergies Allergy/AdvReac Type Severity Reaction Status Date / Time Cephalosporins Allergy Rash Verified 01/09/20 21:57 ciprofloxacin [From Cipro] Allergy Rash Verified 01/09/20 21:57 Home Medications Home Medications Medication Instructions Recorded Confirmed Type Liquid Protein Supp 30 ml PO BID 01/09/20 01/09/20 History acetaminophen [Tylenol] 650 mg PO Q4 PRN 01/09/20 01/09/20 History apixaban [Eliquis] 2.5 mg PO BID 01/09/20 01/09/20 History cyanocobalamin (vitamin B-12) 1,000 mcg PO DAILY 01/09/20 01/09/20 History diclofenac sodium [Voltaren] 1 ea TOPICAL TID 01/09/20 01/09/20 History diltiazem HCl [Cardizem CD] 120 mg PO QPM 01/09/20 01/09/20 History ergocalciferol (vitamin D2) 1,250 mcg PO 2XWK 01/09/20 01/09/20 History [Vitamin D2] ketoconazole [Nizoral] 1 applic TOPICAL BID 01/09/20 01/09/20 History lisinopril 10 mg PO DAILY 01/09/20 01/09/20 History magnesium hydroxide [Milk of 30 ml PO DAILY PRN 01/09/20 01/09/20 History Magnesia] metoprolol tartrate [Lopressor] 50 mg PO BID 01/09/20 01/09/20 History mineral oil-isopropyl myristat 1 applic TOPICAL [facility]HS 01/09/20 01/09/20 History [Eucerin] potassium chloride [Klor-Con 10] 20 meq PO DAILY 01/09/20 01/09/20 History sertraline [Zoloft] 25 mg PO QAM 01/09/20 01/09/20 History soap [Baby Shampoo] 1 ea TOPICAL HS 01/09/20 01/09/20 History tolnaftate 1 applic TOPICAL HS 01/09/20 01/09/20 History Past Med/Surg History Medical History (Updated 01/09/20 @ 23:14 by Soraya Luo DO) Atrial fibrillation Depression Diabetes mellitus Hypertension Surgical History (Updated 01/09/20 @ 22:47 by Soraya Luo DO) History of ankle surgery History of knee surgery Family History (Updated 01/09/20 @ 22:48 by Soraya Luo DO) Other Family history non-contributory Social History Smoking Status: Former smoker Second Hand Exposure: No; Hx Alcohol Use: Yes Hx Substance Use: No Preferred Language: Syriac Communication Ability: Effective Supervisor Hide House Required: No Beliefs That Will Affect Care: None Current Living Situation: Personal Care Facility Feels Safe at Home: Yes Review of Systems Review of Systems: All systems reviewed & are unremarkable except as noted in HPI & below Physical Exam Physical Exam: General: patient resting comfortably, NAD, non-toxic in appearance Skin: warm, dry, intact, no rashes or lesions HEENT: NC/AT, PERRL, EOMI, anicteric sclera, conjunctiva without injection, external ear normal to inspection and nontender, nares patent, moist mucus membranes, dentition intact, no oropharyngeal lesions, neck supple, trachea midline, no LAD, no thyromegaly, no JVD Heart: +S1/S2, irregularly irregular, no m/r/g Lungs: Tachypneic, equal air entry bilaterally, diminished breath sounds in bilateral bases, + crackles bilaterally Abd: +BS, soft, NT/ND, no masses/organomegaly/ascites Ext: warm, 2+ pulses in UE/LE bilaterally, no clubbing/cyanosis, 3+ pitting edema to the knee bilaterally Neuro: nonfocal, speech intact, no facial droop, moving all extremities on command with equal strength 5/5 Results & Data Results & Data ([facility]) Vital Signs (Past 12 Hours) Vital Signs Temp Pulse Pulse Resp BP BP Pulse Ox 01/09/20 22:01 57 L 27 H 193/96 H 98 01/09/20 21:36 63 26 H 216/82 H 97 01/09/20 21:35 62 27 H 216/82 H 96 01/09/20 21:23 60 33 H 189/105 H 97 01/09/20 20:57 57 L 26 H 207/80 H 95 01/09/20 20:00 88 L 01/09/20 19:06 63 24 94 01/09/20 18:50 36.6 C 74 24 202/70 H 88 L Laboratory Results Lab Results 01/09/20 01/09/20 01/09/20 Range/Units 18:45 18:45 18:45 WBC 7.68 (4.8-10.8) K/uL RBC 5.21 (4.2-5.4) M/uL Hgb 13.9 (12.0-16.0) g/dL Hct 42.3 (37-47) % MCV 81.2 (80-100) fL MCH 26.7 (25-34) pg MCHC 32.9 (32-36) g/dL RDW Std Deviation 60.0 H (36.4-46.3) fL RDW Coeff of Addi 20.3 H (11.5-14.5) % Plt Count 388 (130-400) K/uL MPV 10.0 (7.4-10.4) fL Immature Gran % (Auto) 0.3 % Neut % (Auto) 86.6 % Lymph % (Auto) 6.3 % [place] % (Auto) 6.4 % Eos % (Auto) 0.3 % Baso % (Auto) 0.1 % Neut # (Auto) 6.66 H (1.4-6.5) K/uL Lymph # (Auto) 0.48 L (1.2-3.4) K/uL [place] # (Auto) 0.49 (0.11-0.59) K/uL Eos # (Auto) 0.02 (0-0.5) K/uL Baso # (Auto) 0.01 (0-0.2) K/uL Immature Gran # (Auto) 0.02 (0.00-0.02) K/uL Polychromasia 1+ Hypochromasia Present Anisocytosis Present Echinocytes 1+ PT 12.2 H (9.0-12.0) Seconds INR 1.2 H (0.9-1.1) APTT 34.9 H (21.0-31.0) Seconds PTT Ratio 1.3 Sodium 143 (136-145) mmol/L Potassium 3.1 L (3.5-5.1) mmol/L Chloride 104 (98-107) mmol/L Carbon Dioxide 33 H (21-32) mmol/L Anion Gap 6.0 (3-11) BUN 26 H (7-18) mg/dl Creatinine 0.88 (0.6-1.2) mg/dl Est Cr Clr Drug Dosing Not Reportable Est GFR ( Amer) 69.0 Est GFR (Non-Af Amer) 59.5 BUN/Creatinine Ratio 29.2 H (10-20) Glucose 187 H (70-99) mg/dl Calcium 8.4 L (8.5-10.1) mg/dl Total Bilirubin 0.6 (0.2-1) mg/dl AST 82 H (15-37) U/L ALT 50 (12-78) U/L Alkaline Phosphatase 150 H (45-117) U/L Troponin I 0.029 (0-0.045) ng/ml NT-Pro-B Natriuret Pep 26021 H (0-1800) pg/ml Total Protein 6.0 L (6.4-8.2) gm/dl Albumin 2.1 L (3.4-5.0) gm/dl Globulin 3.9 (2.5-4.0) gm/dl Albumin/Globulin Ratio 0.5 L (0.9-2) Urine Color Urine Appearance (Clear) Urine pH (4.5-7.5) Ur Specific [employer] (1.000-1.030) Urine Protein (Negative) Urine Glucose (UA) (Negative) Urine Ketones (Negative) Urine Blood (Negative) Urine Nitrite (Negative) Urine Bilirubin (Negative) Urine Urobilinogen (Negative) Ur Leukocyte Esterase (Negative) Urine WBC (Auto) (0-5) /hpf Urine RBC (Auto) (0-4) /hpf U Hyaline Cast (Auto) (0-5) /lpf U Epithel Cells (Auto) (0-5) /lpf Urine Bacteria (Auto) (Negative) Ur Renal Epithelial Cell Urine Crystals Calcium Oxalate Crystal (None Prsent) COVID-19 Eval Order COVID-19 PCR (Negative) Influenza Type A (PCR) (Neg) Influenza Type B (PCR) (Neg) 01/09/20 01/09/20 01/09/20 Range/Units 19:40 19:40 19:40 WBC (4.8-10.8) K/uL RBC (4.2-5.4) M/uL Hgb (12.0-16.0) g/dL Hct (37-47) % MCV (80-100) fL MCH (25-34) pg MCHC (32-36) g/dL RDW Std Deviation (36.4-46.3) fL RDW Coeff of Addi (11.5-14.5) % Plt Count (130-400) K/uL MPV (7.4-10.4) fL Immature Gran % (Auto) % Neut % (Auto) % Lymph % (Auto) % [place] % (Auto) % Eos % (Auto) % Baso % (Auto) % Neut # (Auto) (1.4-6.5) K/uL Lymph # (Auto) (1.2-3.4) K/uL [place] # (Auto) (0.11-0.59) K/uL Eos # (Auto) (0-0.5) K/uL Baso # (Auto) (0-0.2) K/uL Immature Gran # (Auto) (0.00-0.02) K/uL Polychromasia Hypochromasia Anisocytosis Echinocytes PT (9.0-12.0) Seconds INR (0.9-1.1) APTT (21.0-31.0) Seconds PTT Ratio Sodium (136-145) mmol/L Potassium (3.5-5.1) mmol/L Chloride (98-107) mmol/L Carbon Dioxide (21-32) mmol/L Anion Gap (3-11) BUN (7-18) mg/dl Creatinine (0.6-1.2) mg/dl Est Cr Clr Drug Dosing Est GFR ( Amer) Est GFR (Non-Af Amer) BUN/Creatinine Ratio (10-20) Glucose (70-99) mg/dl Calcium (8.5-10.1) mg/dl Total Bilirubin (0.2-1) mg/dl AST (15-37) U/L ALT (12-78) U/L Alkaline Phosphatase (45-117) U/L Troponin I (0-0.045) ng/ml NT-Pro-B Natriuret Pep (0-1800) pg/ml Total Protein (6.4-8.2) gm/dl Albumin (3.4-5.0) gm/dl Globulin (2.5-4.0) gm/dl Albumin/Globulin Ratio (0.9-2) Urine Color Dark Yellow Urine Appearance Cloudy A (Clear) Urine pH 6.5 (4.5-7.5) Ur Specific [employer] 1.029 (1.000-1.030) Urine Protein 4+ H (Negative) Urine Glucose (UA) 1+ H (Negative) Urine Ketones Negative (Negative) Urine Blood 2+ H (Negative) Urine Nitrite Positive A (Negative) Urine Bilirubin Negative (Negative) Urine Urobilinogen Positive H (Negative) Ur Leukocyte Esterase Negative (Negative) Urine WBC (Auto) 5-10 H (0-5) /hpf Urine RBC (Auto) 0-4 (0-4) /hpf U Hyaline Cast (Auto) 10-30 H (0-5) /lpf U Epithel Cells (Auto) >30 H (0-5) /lpf Urine Bacteria (Auto) 2+ H (Negative) Ur Renal Epithelial Cell Not Reportable Urine Crystals Not Reportable Calcium Oxalate Crystal Present A (None Prsent) COVID-19 Eval Order Covid19 Done at [facility] COVID-19 PCR (Negative) Influenza Type A (PCR) Neg for Influ A (Neg) Influenza Type B (PCR) Neg for Influ B (Neg) 01/09/20 Range/Units 19:40 WBC (4.8-10.8) K/uL RBC (4.2-5.4) M/uL Hgb (12.0-16.0) g/dL Hct (37-47) % MCV (80-100) fL MCH (25-34) pg MCHC (32-36) g/dL RDW Std Deviation (36.4-46.3) fL RDW Coeff of Addi (11.5-14.5) % Plt Count (130-400) K/uL MPV (7.4-10.4) fL Immature Gran % (Auto) % Neut % (Auto) % Lymph % (Auto) % [place] % (Auto) % Eos % (Auto) % Baso % (Auto) % Neut # (Auto) (1.4-6.5) K/uL Lymph # (Auto) (1.2-3.4) K/uL [place] # (Auto) (0.11-0.59) K/uL Eos # (Auto) (0-0.5) K/uL Baso # (Auto) (0-0.2) K/uL Immature Gran # (Auto) (0.00-0.02) K/uL Polychromasia Hypochromasia Anisocytosis Echinocytes PT (9.0-12.0) Seconds INR (0.9-1.1) APTT (21.0-31.0) Seconds PTT Ratio Sodium (136-145) mmol/L Potassium (3.5-5.1) mmol/L Chloride (98-107) mmol/L Carbon Dioxide (21-32) mmol/L Anion Gap (3-11) BUN (7-18) mg/dl Creatinine (0.6-1.2) mg/dl Est Cr Clr Drug Dosing Est GFR ( Amer) Est GFR (Non-Af Amer) BUN/Creatinine Ratio (10-20) Glucose (70-99) mg/dl Calcium (8.5-10.1) mg/dl Total Bilirubin (0.2-1) mg/dl AST (15-37) U/L ALT (12-78) U/L Alkaline Phosphatase (45-117) U/L Troponin I (0-0.045) ng/ml NT-Pro-B Natriuret Pep (0-1800) pg/ml Total Protein (6.4-8.2) gm/dl Albumin (3.4-5.0) gm/dl Globulin (2.5-4.0) gm/dl Albumin/Globulin Ratio (0.9-2) Urine Color Urine Appearance (Clear) Urine pH (4.5-7.5) Ur Specific [employer] (1.000-1.030) Urine Protein (Negative) Urine Glucose (UA) (Negative) Urine Ketones (Negative) Urine Blood (Negative) Urine Nitrite (Negative) Urine Bilirubin (Negative) Urine Urobilinogen (Negative) Ur Leukocyte Esterase (Negative) Urine WBC (Auto) (0-5) /hpf Urine RBC (Auto) (0-4) /hpf U Hyaline Cast (Auto) (0-5) /lpf U Epithel Cells (Auto) (0-5) /lpf Urine Bacteria (Auto) (Negative) Ur Renal Epithelial Cell Urine Crystals Calcium Oxalate Crystal (None Prsent) COVID-19 Eval Order COVID-19 PCR NEGATIVE (Negative) Influenza Type A (PCR) (Neg) Influenza Type B (PCR) (Neg) Diagnostic Findings XR chest 1V portable CLINICAL HISTORY: Dyspnea COMPARISON STUDY: 10/11/2019 FINDINGS: The heart is enlarged. There is radiographic evidence of congestive failure with bilateral pleural effusions. There are bibasilar opacity statistically atelectatic.[ IMPRESSION: Cardiomegaly and radiographic evidence of congestive failure and bilateral pleural effusions. ACT 112: Negative or not required by law. Electronically signed by: Roc Bae M.D. 01/09/2020 8:03 PM Dictated: 01/09/202002 Transcribed: 01/09/202002 CTA chest: Per STATread: No central or large pulmonary embolus identified. Evaluation of the proximal arterial branches is limited by motion artifacts. Small distal PEs cannot be entirely excluded. Atherosclerotic changes of the aorta. No aortic aneurysms or dissection. Moderate to large bilateral pleural effusions. Associated atelectasis. Mild patchy density in the right upper lobe may represent atelectasis versus infectious/inflammatory process. Heterogenous thyroid could be further evaluated with nonemergent dedicated ultrasound if clinically indicated. Nonspecific mildly prominent mediastinal lymph nodes. Cardiomegaly. Body wall edema. ECG Additional Comments: EKG reveals sinus bradycardia at 58 bpm, rightward axis, NC = 168, QRS = 82, QTc = 437, no acute ischemic changes Code Status & VTE Plan Code Status DNR/DNI VTE Prophylaxis Plan VTE Prophylaxis will be ordered: Yes PG Care Time/CCT Total # of Minutes Spent Total Time Spent with Patient: Total time spent is greater than 50% in coordination of care (as documented) at patient's floor/unit and/or counseling patient: Coding Level of Care Code 42960 Initial Inpt Care Lvl 3 Diagnoses Volume overload E87.70 Hypervolemia type: unspecified Nausea & vomiting R11.2 Vomiting Intractability: unspecified Vomiting type: unspecified Diarrhea R19.7 Diarrhea type: unspecified type Hypertension I10 Hypertension type: essential hypertension Diabetes mellitus E11.9 Diabetes mellitus type: type 2 Diabetes mellitus terminal make up operator insulin use: without terminal make up operator use Diabetes mellitus complication status: without complication Atrial fibrillation I48.91 Atrial fibrillation type: unspecified Depression F32.9 Depression Type: major depressive disorder Major depression recurrence: single episode Active/Remission status: remission status unspecified (1) Depression Depression Type: major depressive disorder Major depression recurrence: single episode Active/Remission status: remission status unspecified Qualified Code(s): F32.9 - Major depressive disorder, single episode, unspecified (2) Hypertension Hypertension type: essential hypertension Qualified Code(s): I10 - Essential (primary) hypertension (3) Diabetes mellitus Diabetes mellitus type: type 2 Diabetes mellitus senior living insulin use: without senior living use Diabetes mellitus complication status: without complication Qualified Code(s): E11.9 - Type 2 diabetes mellitus without complications (4) Atrial fibrillation Atrial fibrillation type: unspecified Qualified Code(s): I48.91 - Unspecified atrial fibrillation (5) Nausea & vomiting Vomiting Intractability: unspecified Vomiting type: unspecified Qualified Code(s): R11.2 - Nausea with vomiting, unspecified (6) Diarrhea Diarrhea type: unspecified type Qualified Code(s): R19.7 - Diarrhea, unspecified (7) Volume overload Hypervolemia type: unspecified Qualified Code(s): E87.70 - Fluid overload, unspecified
[2020-01-09] MEDS ORDERED: ACETAMINOPHEN 325 MG TAB PO PRN (23:51)
[2020-01-09] MEDS ORDERED: GLUCOSE 10 TABS/TUBE PO PRN (23:51)
[2020-01-09] MEDS ORDERED: GLUCAGON FOR INJ 1 MG VIAL SQ PRN (23:51)
[2020-01-09] MEDS ORDERED: CARBOHYDRATES FOR HYPOGLYCEMIA PO PRN (23:51)
[2020-01-09] MEDS ORDERED: DEXTROSE 50% 50 ML SYRINGE IV PRN (23:51)
[2020-01-09] MEDS ORDERED: GLUCOSE 40% GEL 15 GM TUBE PO PRN (23:51)
[2020-01-09] MEDS ORDERED: ONDANSETRON INJ 2 MG/ML 2 ML VIAL IV PRN (23:51)
[2020-01-09] MEDS ORDERED: POTASSIUM CHLORIDE 20 MEQ/15 ML UDC PO STA (23:51)
[2020-01-10 00:22] LABS: Magnesium 1.4 mg/dl (1.8-2.4); Phosphorus 2.7 mg/dl (2.5-4.9)
[2020-01-10] MEDS: lisinopriL 10 MG TAB PO SCH ×2 (01:17→08:59)
[2020-01-10] MEDS: dilTIAZem HCL 120 MG CAPCR PO SCH ×2 (01:18→20:37)
[2020-01-10] MEDS: INSULIN ASPART 100 UNITS/ML 3 ML PEN SC SCH ×5 (01:23→20:46)
[2020-01-10 06:11] LABS: Basophils # (auto) 0.01 K/uL (0-0.2); Basophils % (auto) 0.2 %; Eosinophils # (auto) 0.04 K/uL (0-0.5); Eosinophils % (auto) 0.7 %; Hematocrit (blood only) 38.2 % (37-47); Hemoglobin 12.3 g/dL (12.0-16.0); Immature Granulocytes # (auto) 0.02 K/uL (0.00-0.02); Immature Granulocytes % (auto) 0.3 %; Lymphocytes # (auto) 0.42 K/uL (1.2-3.4); Lymphocytes % (auto) 7.1 %; Mean Corpuscular Hemoglobin 26.5 pg (25-34); Mean Corpuscular Hgb Conc 32.2 g/dL (32-36); Mean Corpuscular Volume 82.2 fL (80-100); Mean Platelet Volume 9.6 fL (7.4-10.4); Monocytes # (auto) 0.71 K/uL (0.11-0.59); Neutrophils # (auto) 4.73 K/uL (1.4-6.5); Neutrophils % (auto) 79.7 %; Platelet Count 364 K/uL (130-400); RDW Coefficient of Variation 20.2 % (11.5-14.5); RDW Standard Deviation 59.9 fL (36.4-46.3); Red Blood Count 4.65 M/uL (4.2-5.4); White Blood Count 5.93 K/uL (4.8-10.8)
[2020-01-10 06:35] LABS: Anisocytosis Present; Echinocytes 1+; Hypochromasia Present
[2020-01-10 06:39] LABS: Albumin Level 1.6 gm/dl (3.4-5.0); BUN Creatinine Ratio 23.7 (10-20); Bilirubin Direct 0.2 mg/dl (0-0.2); Calcium 8.5 mg/dl (8.5-10.1); Creatinine Clr Calc Pharmacy 43.3 ml/min; Est GFR (Non-African American) 58.7; Potassium 3.3 mmol/L (3.5-5.1)
[2020-01-10 06:49] LABS: Bilirubin,Total 0.5 mg/dl (0.2-1); Thyroid Stimulating Hormone 5.2 uIu/ml (0.300-4.500); Total Protein 5.5 gm/dl (6.4-8.2)
[2020-01-10] MEDS ORDERED: PERFLUTREN LIPID MICROSPHERE (DEFINITY) IV ONE (06:55)
[2020-01-10 07:02] LABS: T4 Free Thyroxine 1.53 ng/dl (0.8-1.6)
[2020-01-10 07:08] LABS: Estimated Average Glucose 163 mg/dl; Hemoglobin A1C 7.3 % (4.5-5.6)
--- NOTE | 2020-01-10 08:13 | CT Scan Report ---
CT ANGIOGRAPHY OF THE CHEST, PULMONARY EMBOLUS PROTOCOL CLINICAL HISTORY: hypoxia/cp eval for PE COMPARISON STUDY: Chest radiograph January 09, 2020. TECHNIQUE: Following IV administration of 81 mL of Optiray-320, helical axial images of the chest wer e obtained utilizing the pulmonary embolus protocol. Maximal intensity projections and sagittal and coronal reformats were viewed on an independent 3D workstation. IV contrast was administered without complication. Automated exposure control was utilized for the study. A dose lowering technique was utilized adhering to the principles of ALARA. CT DOSE: 304.26 mGy.cm FINDINGS: No central or lobar pulmonary embolus is identified. The segmental and subsegmental pulmon soco arteries are suboptimally assessed given respiratory motion. Moderate cardiomegaly is noted. Ther e is no pericardial effusion. Interstitial thickening is present. There are moderate to large bilater al pleural effusions. Lungs are suboptimally assessed given respiratory motion. There is mild groundg lass opacity within the right upper lobe. Subpleural opacities favor atelectasis. There is segmental left lower lobe atelectasis. There is no pneumothorax. Old left rib fractures are noted. Upper abdome n is unremarkable. IMPRESSION: 1. No pulmonary emboli identified although segmental and subsegmental pulmonary arteries suboptimally assessed due to respiratory motion. 2. Moderate to large bilateral pleural effusions. Associated subpleural opacities which favor atelect asis. Probable mild pulmonary edema. 3. Right upper lobe groundglass opacity which could reflect atelectasis or an infectious process. 4. Moderate cardiomegaly and coronary artery calcification. ACT 112: Negative or not required by law. Electronically signed by: Bruno Castellano M.D. 01/10/2020 8:12 AM
[2020-01-10] MEDS: POTASSIUM CHLORIDE 20 MEQ TABCR PO SCH ×3 (08:58→20:39)
--- NOTE | 2020-01-10 08:58 | Ultrasound Report ---
ULTRASOUND RIGHT UPPER QUADRANT ABDOMEN CLINICAL HISTORY: Nausea. COMPARISON STUDY: Abdominal ultrasound and CT dated 10/11/2019. TECHNIQUE: Real-time, grayscale, and color flow sonography of the right upper quadrant of the abdomen was performed. Images are reviewed in the transverse and longitudinal planes. FINDINGS: Liver: The liver is top normal in size and demonstrates slightly increased echotexture suggesting bi atosis. Fatty sparing is seen adjacent to gallbladder fossa. There is no intrahepatic biliary ductal dilatation. The main portal vein is patent. Gallbladder: A sigmoid ureteral bladder polyp is incidentally noted. The gallbladder is otherwise nor mal in appearance. No shadowing gallstones are identified. There is no gallbladder wall thickening or pericholecystic fluid. A sonographic Mckinley's sign is reportedly absent. The common bile duct measur es up to 0.7 cm in diameter. Pancreas: Visualized portions of the pancreatic head and body are normal in appearance. Splenic vein is patent. Right kidney: Survey images of the right kidney demonstrate mild cortical atrophy and normal echotext ure. There is no hydronephrosis. A 1.1 cm cyst is noted in the lower pole. Ascites: None. IMPRESSION: 1. No acute sonographic abnormality is identified in the right upper quadrant. No shadowing gallstone s are seen. 2. A 6 mm gallbladder polyp is incidentally noted and unchanged. 3. Mild hepatic steatosis. ACT 112: Negative or not required by law. Electronically signed by: Jame Christina M.D. 01/10/2020 8:57 AM
[2020-01-10] MEDS: AMPICILLIN/SULBACTAM SOD 3,000 MG in 0.9 % SODIUM CHLORIDE 100 ML IV SCH ×3 (08:59→20:36)
[2020-01-10] MEDS: FUROSEMIDE 40 MG in SYRINGE 0 ML IV SCH ×2 (08:59→16:53)
[2020-01-10] MEDS: CYANOCOBALAMIN 500 MCG TABLET (VITAMIN B-12) PO SCH (08:59)
[2020-01-10] MEDS: SERTRALINE HCL 50 MG TABLET PO SCH (09:00)
[2020-01-10] MEDS: METOPROLOL TARTRATE 50 MG TAB PO SCH ×2 (09:00→20:38)
[2020-01-10] MEDS: APIXABAN 2.5 MG TAB PO SCH ×2 (09:00→20:39)
[2020-01-10] MEDS: MAGNESIUM SULFATE / D5W 1 GM/100 ML BAG IV SCH ×2 (09:33→11:51)
--- NOTE | 2020-01-10 11:38 | Hospitalist Progress Note ---
Date of Service January 10, 2020 Assessment & Plan (1) Acute on chronic right-sided congestive heart failure: echo with diastolic dysfunction, grade 2; preserved EF; and mild right- sided congestive heart failure. etiology of right-sided CHF is uncertain. no h/o PE or obvious SREE. no chronic lung disease. either way she is diuresing well with lasix 40mg IV BID. continue such. daily weights. strict I's and O's. metoprolol tartrate should be changed to toprol xl or coreg. good candidate for CHF clinic. severe hypoalbuminemia and proteinuria may be contributing to volume overload. (2) Bilateral pleural effusion: 2nd to decompensated CHF, +/- severe proteinuria/hypoalbuminemia. Diurese. Follow clinically for improvement. (3) Acute respiratory failure with hypoxia: 2nd to volume overload/CHF. Diurese. (4) Diarrhea: Etiology? check c.diff toxin and stool cx to start. (5) Nausea & vomiting: Symptoms sound like severe reflux disease/regurgitation. CT abd/pelvis on 10/11/2019 without gastric pathology or small bowel pathology. Will obtain barium swallow. Start empiric PPI + carafate. Cannot r/o gastroparesis from longstanding DM. (6) Depression: cont SSRI. (7) UTI (urinary tract infection): growing GNR on culture. cephalosporin and quinolone allergy. start unasyn q6h. follow culture. (8) Diabetes mellitus: long-standing. thus far controlled on supplemental novolog. a1c 7.3%. (9) Hypertension: uncontrolled. consider changing metoprolol to coreg. cont ANNETTA. titrate as needed. (10) PAF (paroxysmal atrial fibrillation): noted. is on BB and eliquis BID. cont both. telemetry. (11) Abnormal LFTs: 2nd to right-sided heart failure (ie - passive congestion of liver?). liver us unremarkable. trend. (12) Proteinuria: 4+ on u/a. this needs to be repeated and if still significant consider 24-hour urine. Cr <1 at this time. 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 (13) Hypoalbuminemia: 2nd diabetic nephropathy? due to chronic regurgitation? protein loss in diarrhea? combination? nutrition consult while here. add MVI. (14) Hypomagnesemia: replace repeat level AM (15) Hypokalemia: replace BMP am (16) DVT prophylaxis: eliquis 2.5mg BID Admission and Anticipated Discharge Date Admission Date: January 09, 2020 Subjective patient states that her "vomiting" has not been present for just 3 months but "for years" (but getting worse). it comes on suddenly without warning, often 1 hour post-prandial. occasional nausea. no true stomach pain. she also has been having chronic diarrhea - was 2-3 BMs/day for some time, now down to once/day. she mentions her PCP thought it was medication related and her meds were adjusted with possibly some improvement. she has been a diabetic for some time - at least 10 years, probably longer (she could not give me exact time amount). breathing is improved from last night. she has been short of breath "for a while" at home. lives at [facility] ([facility]). just had negative testing for COVID last week some time. Review of Systems Constitutional: no fever, no chills and no weight loss Ear, Nose, Mouth, Throat: no dysphagia Cardiovascular: + edema; no chest pain Gastrointestinal: + nausea, + vomiting and + diarrhea/loose stools; no abdominal pain Physical Exam Constitutional: no acute distress and no altered mental status ENMT: external ear and nose normal, oropharynx normal Respiratory: no respiratory distress Auscultation: + diminished lung sounds (both bases, about 1/[address] up back ) and + crackles (mild bases ); no wheezes Cardiovascular: Rate/Rhythm: regular rate and regular rhythm Heart Sounds: normal S1, normal S2 and + murmur (1/6 LSB) Vessels: + JVD, posterior tibial pulses present and dorsalis pedis pulses present Extremities: + edema (at least 1+ b/l ) Gastrointestinal (Abdomen): normal bowel sounds, soft, nontender, no hepatosplenomegaly Psychiatric: A+Ox3, euthymic affect Results & Data Results & Data ([facility]) Vital Signs (Past 12 Hours) Vital Signs Temp Pulse Pulse Resp BP Pulse Ox Pulse Ox 01/10/20 08:55 59 L 173/72 H 01/10/20 07:04 36.6 C 53 L 19 169/65 H 96 01/10/20 04:08 36.5 C 61 18 180/73 H 91 01/09/20 23:54 36.5 C 58 L 18 192/65 H 94 01/09/20 23:51 36.5 C 58 L 18 192/65 H 94 94 Laboratory Results Laboratory Results - last 24 hr 01/09/20 01/09/20 01/09/20 18:45 18:45 18:45 WBC 7.68 RBC 5.21 Hgb 13.9 Hct 42.3 MCV 81.2 MCH 26.7 MCHC 32.9 RDW Std Deviation 60.0 H RDW Coeff of Addi 20.3 H Plt Count 388 MPV 10.0 Immature Gran % (Auto) 0.3 Neut % (Auto) 86.6 Lymph % (Auto) 6.3 Brooks % (Auto) 6.4 Eos % (Auto) 0.3 Baso % (Auto) 0.1 Neut # (Auto) 6.66 H Lymph # (Auto) 0.48 L Brooks # (Auto) 0.49 Eos # (Auto) 0.02 Baso # (Auto) 0.01 Immature Gran # (Auto) 0.02 Polychromasia 1+ Hypochromasia Present Anisocytosis Present Echinocytes 1+ PT 12.2 H INR 1.2 H APTT 34.9 H PTT Ratio 1.3 Sodium 143 Potassium 3.1 L Chloride 104 Carbon Dioxide 33 H Anion Gap 6.0 BUN 26 H Creatinine 0.88 Est Cr Clr Drug Dosing Not Reportable Est GFR ( Amer) 69.0 Est GFR (Non-Af Amer) 59.5 BUN/Creatinine Ratio 29.2 H Glucose 187 H POC Glucose Estimat Average Glucose Hemoglobin A1c Calcium 8.4 L Phosphorus 2.7 Magnesium 1.4 L Total Bilirubin 0.6 Direct Bilirubin AST 82 H ALT 50 Alkaline Phosphatase 150 H Troponin I 0.029 NT-Pro-B Natriuret Pep 55360 H Total Protein 6.0 L Albumin 2.1 L Globulin 3.9 Albumin/Globulin Ratio 0.5 L Procalcitonin TSH Free T4 Urine Color Urine Appearance Urine pH Ur Specific [place] Urine Protein Urine Glucose (UA) Urine Ketones Urine Blood Urine Nitrite Urine Bilirubin Urine Urobilinogen Ur Leukocyte Esterase Urine WBC (Auto) Urine RBC (Auto) U Hyaline Cast (Auto) U Epithel Cells (Auto) Urine Bacteria (Auto) Ur Renal Epithelial Cell Urine Crystals Calcium Oxalate Crystal Nasal Screen MRSA (PCR) COVID-19 Eval Order COVID-19 PCR Influenza Type A (PCR) Influenza Type B (PCR) 01/09/20 01/09/20 01/09/20 18:46 19:40 19:40 WBC RBC Hgb Hct MCV MCH MCHC RDW Std Deviation RDW Coeff of Addi Plt Count MPV Immature Gran % (Auto) Neut % (Auto) Lymph % (Auto) Brooks % (Auto) Eos % (Auto) Baso % (Auto) Neut # (Auto) Lymph # (Auto) Brooks # (Auto) Eos # (Auto) Baso # (Auto) Immature Gran # (Auto) Polychromasia Hypochromasia Anisocytosis Echinocytes PT INR APTT PTT Ratio Sodium Potassium Chloride Carbon Dioxide Anion Gap BUN Creatinine Est Cr Clr Drug Dosing Est GFR ( Amer) Est GFR (Non-Af Amer) BUN/Creatinine Ratio Glucose POC Glucose Estimat Average Glucose Hemoglobin A1c Calcium Phosphorus Magnesium Total Bilirubin Direct Bilirubin AST ALT Alkaline Phosphatase Troponin I NT-Pro-B Natriuret Pep Total Protein Albumin Globulin Albumin/Globulin Ratio Procalcitonin 0.21 TSH Free T4 Urine Color Dark Yellow Urine Appearance Cloudy A Urine pH 6.5 Ur Specific [place] 1.029 Urine Protein 4+ H Urine Glucose (UA) 1+ H Urine Ketones Negative Urine Blood 2+ H Urine Nitrite Positive A Urine Bilirubin Negative Urine Urobilinogen Positive H Ur Leukocyte Esterase Negative Urine WBC (Auto) 5-10 H Urine RBC (Auto) 0-4 U Hyaline Cast (Auto) 10-30 H U Epithel Cells (Auto) >30 H Urine Bacteria (Auto) 2+ H Ur Renal Epithelial Cell Not Reportable Urine Crystals Not Reportable Calcium Oxalate Crystal Present A Nasal Screen MRSA (PCR) COVID-19 Eval Order COVID-19 PCR Influenza Type A (PCR) Neg for Influ A Influenza Type B (PCR) Neg for Influ B 01/09/20 01/09/20 01/10/20 19:40 19:40 00:06 WBC RBC Hgb Hct MCV MCH MCHC RDW Std Deviation RDW Coeff of Addi Plt Count MPV Immature Gran % (Auto) Neut % (Auto) Lymph % (Auto) Brooks % (Auto) Eos % (Auto) Baso % (Auto) Neut # (Auto) Lymph # (Auto) Brooks # (Auto) Eos # (Auto) Baso # (Auto) Immature Gran # (Auto) Polychromasia Hypochromasia Anisocytosis Echinocytes PT INR APTT PTT Ratio Sodium Potassium Chloride Carbon Dioxide Anion Gap BUN Creatinine Est Cr Clr Drug Dosing Est GFR ( Amer) Est GFR (Non-Af Amer) BUN/Creatinine Ratio Glucose POC Glucose 154 H Estimat Average Glucose Hemoglobin A1c Calcium Phosphorus Magnesium Total Bilirubin Direct Bilirubin AST ALT Alkaline Phosphatase Troponin I NT-Pro-B Natriuret Pep Total Protein Albumin Globulin Albumin/Globulin Ratio Procalcitonin TSH Free T4 Urine Color Urine Appearance Urine pH Ur Specific [place] Urine Protein Urine Glucose (UA) Urine Ketones Urine Blood Urine Nitrite Urine Bilirubin Urine Urobilinogen Ur Leukocyte Esterase Urine WBC (Auto) Urine RBC (Auto) U Hyaline Cast (Auto) U Epithel Cells (Auto) Urine Bacteria (Auto) Ur Renal Epithelial Cell Urine Crystals Calcium Oxalate Crystal Nasal Screen MRSA (PCR) COVID-19 Eval Order Covid19 Done at [facility] COVID-19 PCR NEGATIVE Influenza Type A (PCR) Influenza Type B (PCR) 01/10/20 01/10/20 01/10/20 00:25 05:41 05:41 WBC 5.93 RBC 4.65 Hgb 12.3 Hct 38.2 MCV 82.2 MCH 26.5 MCHC 32.2 RDW Std Deviation 59.9 H RDW Coeff of Addi 20.2 H Plt Count 364 MPV 9.6 Immature Gran % (Auto) 0.3 Neut % (Auto) 79.7 Lymph % (Auto) 7.1 Brooks % (Auto) 12.0 Eos % (Auto) 0.7 Baso % (Auto) 0.2 Neut # (Auto) 4.73 Lymph # (Auto) 0.42 L Brooks # (Auto) 0.71 H Eos # (Auto) 0.04 Baso # (Auto) 0.01 Immature Gran # (Auto) 0.02 Polychromasia Hypochromasia Present Anisocytosis Present Echinocytes 1+ PT INR APTT PTT Ratio Sodium 142 Potassium 3.3 L Chloride 104 Carbon Dioxide 33 H Anion Gap 5.0 BUN 21 H Creatinine 0.89 Est Cr Clr Drug Dosing 43.3 Est GFR ( Amer) 68.0 Est GFR (Non-Af Amer) 58.7 BUN/Creatinine Ratio 23.7 H Glucose 133 H POC Glucose Estimat Average Glucose Hemoglobin A1c Calcium 8.5 Phosphorus Magnesium Total Bilirubin 0.5 Direct Bilirubin 0.2 AST 54 H ALT 37 Alkaline Phosphatase 118 H Troponin I NT-Pro-B Natriuret Pep Total Protein 5.5 L Albumin 1.6 L Globulin Albumin/Globulin Ratio Procalcitonin TSH 5.200 H Free T4 1.53 Urine Color Urine Appearance Urine pH Ur Specific [place] Urine Protein Urine Glucose (UA) Urine Ketones Urine Blood Urine Nitrite Urine Bilirubin Urine Urobilinogen Ur Leukocyte Esterase Urine WBC (Auto) Urine RBC (Auto) U Hyaline Cast (Auto) U Epithel Cells (Auto) Urine Bacteria (Auto) Ur Renal Epithelial Cell Urine Crystals Calcium Oxalate Crystal Nasal Screen MRSA (PCR) Negative COVID-19 Eval Order COVID-19 PCR Influenza Type A (PCR) Influenza Type B (PCR) 01/10/20 01/10/20 05:41 07:15 WBC RBC Hgb Hct MCV MCH MCHC RDW Std Deviation RDW Coeff of Addi Plt Count MPV Immature Gran % (Auto) Neut % (Auto) Lymph % (Auto) Brooks % (Auto) Eos % (Auto) Baso % (Auto) Neut # (Auto) Lymph # (Auto) Brooks # (Auto) Eos # (Auto) Baso # (Auto) Immature Gran # (Auto) Polychromasia Hypochromasia Anisocytosis Echinocytes PT INR APTT PTT Ratio Sodium Potassium Chloride Carbon Dioxide Anion Gap BUN Creatinine Est Cr Clr Drug Dosing Est GFR ( Amer) Est GFR (Non-Af Amer) BUN/Creatinine Ratio Glucose POC Glucose 112 H Estimat Average Glucose 163 Hemoglobin A1c 7.3 H Calcium Phosphorus Magnesium Total Bilirubin Direct Bilirubin AST ALT Alkaline Phosphatase Troponin I NT-Pro-B Natriuret Pep Total Protein Albumin Globulin Albumin/Globulin Ratio Procalcitonin TSH Free T4 Urine Color Urine Appearance Urine pH Ur Specific [place] Urine Protein Urine Glucose (UA) Urine Ketones Urine Blood Urine Nitrite Urine Bilirubin Urine Urobilinogen Ur Leukocyte Esterase Urine WBC (Auto) Urine RBC (Auto) U Hyaline Cast (Auto) U Epithel Cells (Auto) Urine Bacteria (Auto) Ur Renal Epithelial Cell Urine Crystals Calcium Oxalate Crystal Nasal Screen MRSA (PCR) COVID-19 Eval Order COVID-19 PCR Influenza Type A (PCR) Influenza Type B (PCR) PG Care Time/CCT Total # of Minutes Spent Total Time Spent with Patient: Total time spent is greater than 50% in coordination of care (as documented) at patient's floor/unit and/or counseling patient: Coding Level of Care Code 10547 Subseq Hosp Care Lvl 3 Diagnoses Acute on chronic right-sided congestive heart failure I50.813 Bilateral pleural effusion J90 Acute respiratory failure with hypoxia J96.01 Diarrhea R19.7 Diarrhea type: unspecified type Nausea & vomiting R11.2 Vomiting type: unspecified Vomiting Intractability: unspecified Depression F32.9 Depression Type: major depressive disorder Major depression recurrence: single episode Active/Remission status: remission status unspecified UTI (urinary tract infection) N30.00 Urinary tract infection type: acute cystitis Hematuria presence: without hematuria Diabetes mellitus E11.9 Diabetes mellitus type: type 2 Diabetes mellitus mcc insulin use: without mcc use Diabetes mellitus complication status: without complication Hypertension I10 Hypertension type: essential hypertension PAF (paroxysmal atrial fibrillation) I48.0 Abnormal LFTs R94.5 Proteinuria R80.9 Proteinuria type: unspecified Hypoalbuminemia E88.09 Hypomagnesemia E83.42 Hypokalemia E87.6 DVT prophylaxis Z29.9 (1) Diarrhea Diarrhea type: unspecified type Qualified Code(s): R19.7 - Diarrhea, unspecified (2) Nausea & vomiting Vomiting type: unspecified Vomiting Intractability: unspecified Qualified Code(s): R11.2 - Nausea with vomiting, unspecified (3) Depression Depression Type: major depressive disorder Major depression recurrence: single episode Active/Remission status: remission status unspecified Qualified Code(s): F32.9 - Major depressive disorder, single episode, unspecified (4) UTI (urinary tract infection) Urinary tract infection type: acute cystitis Hematuria presence: without hematuria Qualified Code(s): N30.00 - Acute cystitis without hematuria (5) Diabetes mellitus Diabetes mellitus type: type 2 Diabetes mellitus mcc insulin use: without plant engineering supervisor use Diabetes mellitus complication status: without complication Qualified Code(s): E11.9 - Type 2 diabetes mellitus without complications (6) Hypertension Hypertension type: essential hypertension Qualified Code(s): I10 - Essential (primary) hypertension (7) Proteinuria Proteinuria type: unspecified Qualified Code(s): R80.9 - Proteinuria, unspecified
[2020-01-10] MEDS: DICLOFENAC SOD 1% GEL 100 GM TUBE EXT SCH ×4 (11:50→20:52)
[2020-01-10] MEDS: LACTOBACILLUS ACIDOPHILUS (FLORANEX) TAB PO SCH ×2 (11:50→16:52)
--- NOTE | 2020-01-10 12:00 | XCELERA ---
[id number]
[2020-01-10] MEDS: PANTOprazole 40 MG TAB PO SCH (16:52)
[2020-01-10] MEDS: SUCRALFATE 1 GM/10 ML UDC PO SCH ×2 (16:52→20:36)
[2020-01-10 16:57] LABS: BUN Creatinine Ratio 20.5 (10-20); Calcium 8.5 mg/dl (8.5-10.1); Creatinine Clr Calc Pharmacy 39.7 ml/min; Est GFR (African American) 61.3; Est GFR (Non-African American) 52.9; Potassium 3.5 mmol/L (3.5-5.1)
[2020-01-11] MEDS: AMPICILLIN/SULBACTAM SOD 3,000 MG in 0.9 % SODIUM CHLORIDE 100 ML IV SCH (01:29)
--- NOTE | 2020-01-11 06:41 | Electrocardiogram Report ---
Test Reason : Blood Pressure : / mmHG Vent. Rate : 058 BPM Atrial Rate : 058 BPM P-R Int : 168 ms QRS Dur : 082 ms QT Int : 446 ms P-R-T Axes : 076 094 029 degrees QTc Int : 437 ms Poor data quality, interpretation may be adversely affected Sinus bradycardia Rightward axis Nonspecific ST and T wave abnormality Abnormal ECG When compared with ECG of 11-OCT-2019 21:28, Sinus rhythm has replaced Atrial fibrillation Vent. rate has decreased BY 39 BPM QT has shortened Confirmed by Gray Mckeon ([id number]) on 01/11/2020 6:41:28 AM Referred By: REFERRED SELF Confirmed By:Gray Mckeon
[2020-01-11 06:45] LABS: Albumin Level 1.6 gm/dl (3.4-5.0); BUN Creatinine Ratio 20.2 (10-20); Calcium 8.3 mg/dl (8.5-10.1); Creatinine Clr Calc Pharmacy 39.7 ml/min; Est GFR (African American) 62.1; Est GFR (Non-African American) 53.6; Magnesium 1.8 mg/dl (1.8-2.4); Potassium 3.5 mmol/L (3.5-5.1)
[2020-01-11 06:47] LABS: Bilirubin Direct 0.2 mg/dl (0-0.2); Bilirubin,Total 0.5 mg/dl (0.2-1); Total Protein 5.2 gm/dl (6.4-8.2)
[2020-01-11] MEDS: POTASSIUM CHLORIDE 20 MEQ TABCR PO SCH ×3 (08:13→20:49)
[2020-01-11] MEDS: FUROSEMIDE 40 MG in SYRINGE 0 ML IV SCH ×2 (08:13→16:48)
[2020-01-11] MEDS: APIXABAN 2.5 MG TAB PO SCH ×2 (08:13→20:49)
[2020-01-11] MEDS: CYANOCOBALAMIN 500 MCG TABLET (VITAMIN B-12) PO SCH (08:13)
[2020-01-11] MEDS: INSULIN ASPART 100 UNITS/ML 3 ML PEN SC SCH ×4 (08:13→21:16)
[2020-01-11] MEDS: SULFAMETHOXAZOLE/TRIMETHOPRIM DS 800/160MG TAB PO SCH ×2 (08:13→20:49)
[2020-01-11] MEDS: lisinopriL 10 MG TAB PO SCH (08:14)
[2020-01-11] MEDS: CEROVITE ADV FORMULA TAB PO SCH (08:14)
[2020-01-11] MEDS: SERTRALINE HCL 50 MG TABLET PO SCH (08:14)
[2020-01-11] MEDS: METOPROLOL TARTRATE 50 MG TAB PO SCH ×2 (08:15→20:49)
[2020-01-11] MEDS: PANTOprazole 40 MG TAB PO SCH (08:15)
[2020-01-11] MEDS: SUCRALFATE 1 GM/10 ML UDC PO SCH ×4 (08:15→20:49)
[2020-01-11] MEDS: LACTOBACILLUS ACIDOPHILUS (FLORANEX) TAB PO SCH ×3 (08:15→16:48)
[2020-01-11] MEDS: DICLOFENAC SOD 1% GEL 100 GM TUBE EXT SCH ×3 (10:07→20:50)
[2020-01-11 14:00] LABS: Cdiff Antigen Positive; Cdiff Toxin A+B Negative Cdiff Toxin (Negative)
[2020-01-11] MEDS ORDERED: lisinopriL 10 MG TAB PO STA (14:59)
--- NOTE | 2020-01-11 14:59 | Hospitalist Progress Note ---
Date of Service January 11, 2020 Assessment & Plan (1) Acute on chronic right-sided congestive heart failure: echo with diastolic dysfunction, grade 2; preserved EF; and mild right- sided congestive heart failure. etiology of right-sided CHF is uncertain. no h/o PE or obvious SREE. no chronic lung disease. either way she is diuresing well with lasix 40mg IV BID. continue such. suspect approaching euvolemia. daily weights. strict I's and O's. metoprolol tartrate should be changed to toprol xl or coreg prior to d/c. good candidate for CHF clinic. severe hypoalbuminemia and proteinuria may be contributing to volume overload. (2) Bilateral pleural effusion: 2nd to decompensated CHF, +/- severe proteinuria/hypoalbuminemia. Diurese. O2 weaned off and lung exam improved. (3) Acute respiratory failure with hypoxia: 2nd to volume overload/CHF. resolved. off O2. (4) Diarrhea: Etiology? c diff toxin gene + but toxin negative -- thus, she is carrier. no Rx needed. diarrhea has been improved since here. follow. (5) Nausea & vomiting: Symptoms sound like severe reflux disease/regurgitation. CT abd/pelvis on 10/11/2019 without gastric pathology or small bowel pathology. Attempted barium swallow but could not be obtained. However, symptoms improved with empiric PPI + carafate. Cannot r/o gastroparesis from longstanding DM. Cont PPI w/ carafate. (6) Depression: cont SSRI. (7) UTI (urinary tract infection): e.coli resistant to several PO abx including augmentin. cephalosporin and quinolone allergy. stop unasyn q6h. change to PO bactrim BID. (8) Diabetes mellitus: long-standing. thus far controlled on supplemental novolog. a1c 7.3%. (9) Hypertension: uncontrolled. consider changing metoprolol to coreg. cont ANNETTA but increase to 20mg/day (10) PAF (paroxysmal atrial fibrillation): noted. is on BB and eliquis BID. cont both. telemetry. (11) Abnormal LFTs: 2nd to right-sided heart failure (ie - passive congestion of liver). liver us unremarkable. LFTs improved with diuresis. (12) Proteinuria: 4+ on u/a. this needs to be repeated and if still significant consider 24-hour urine. Cr <1 at this time. 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 (13) Hypoalbuminemia: 2nd diabetic nephropathy? due to chronic regurgitation? protein loss in diarrhea? combination? nutrition consult while here. added MVI. (14) Hypomagnesemia: replaced and resolved (15) Hypokalemia: replaced and resolved BMP am (16) Rash: contact dermatitis to bedsheets/sweating? drug reaction to unasyn? follow for worsening. start triamcinolone cream 0.1% - TID in thin amounts. re-eval tomorrow. (17) DVT prophylaxis: eliquis 2.5mg BID progressing Suha Marcial updated by phone yesterday & today Admission and Anticipated Discharge Date Admission Date: January 09, 2020 Subjective tele stable overnight pt feeling better dyspnea resolved no cough able to keep food down ! she is quite pleased by this as this has been a chronic issue for some time. she was unable to do the barium swallow yesterday - couldn't stand for such. no new complaints. updated Suha marcial her POA by phone today. Review of Systems Constitutional: no fever and no chills Respiratory: no cough and no dyspnea Cardiovascular: no chest pain Gastrointestinal: no abdominal pain Physical Exam Constitutional: no acute distress and no altered mental status ENMT: external ear and nose normal, oropharynx normal Respiratory: no respiratory distress Auscultation: + diminished lung sounds (both bases but improved) and + crackles (scant bases); no wheezes Cardiovascular: Rate/Rhythm: regular rate and regular rhythm Heart Sounds: normal S1, normal S2 and + murmur (1/6 LSB) Vessels: + JVD, posterior tibial pulses present and dorsalis pedis pulses present Extremities: no edema Gastrointestinal (Abdomen): normal bowel sounds, soft, nontender, no hepatosplenomegaly Skin: + rash (back and lower waist area only; chest, face, arms, legs spared; feet spared) stasis changes b/l legs Psychiatric: A+Ox3, euthymic affect Results & Data Results & Data ([facility]) Vital Signs (Past 12 Hours) Vital Signs Temp Pulse Resp BP Pulse Ox 01/11/20 11:37 36.5 C 53 L 19 145/73 H 92 01/11/20 07:21 36.4 C L 54 L 18 182/71 H 100 Laboratory Results Laboratory Results - last 24 hr 01/10/20 01/10/20 01/10/20 16:30 16:31 20:41 Sodium 143 Potassium 3.5 Chloride 102 Carbon Dioxide 38 H Anion Gap 3.0 BUN 20 H Creatinine 0.97 Est Cr Clr Drug Dosing 39.7 Est GFR ( Amer) 61.3 Est GFR (Non-Af Amer) 52.9 BUN/Creatinine Ratio 20.5 H Glucose 139 H POC Glucose 123 H 142 H Calcium 8.5 Magnesium Total Bilirubin Direct Bilirubin AST ALT Alkaline Phosphatase Total Protein Albumin Stl C. diff Tox B Gene Stl C.difficile Tox A&B 01/11/20 01/11/20 01/11/20 05:14 07:07 11:00 Sodium 143 Potassium 3.5 Chloride 103 Carbon Dioxide 38 H Anion Gap 2.0 L BUN 19 H Creatinine 0.96 Est Cr Clr Drug Dosing 39.7 Est GFR ( Amer) 62.1 Est GFR (Non-Af Amer) 53.6 BUN/Creatinine Ratio 20.2 H Glucose 104 H POC Glucose 111 H Calcium 8.3 L Magnesium 1.8 Total Bilirubin 0.5 Direct Bilirubin 0.2 AST 45 H ALT 31 Alkaline Phosphatase 102 Total Protein 5.2 L Albumin 1.6 L Stl C. diff Tox B Gene Positive Cdiff Gene H Stl C.difficile Tox A&B Negative Cdiff Toxin 01/11/20 11:13 Sodium Potassium Chloride Carbon Dioxide Anion Gap BUN Creatinine Est Cr Clr Drug Dosing Est GFR ( Amer) Est GFR (Non-Af Amer) BUN/Creatinine Ratio Glucose POC Glucose 166 H Calcium Magnesium Total Bilirubin Direct Bilirubin AST ALT Alkaline Phosphatase Total Protein Albumin Stl C. diff Tox B Gene Stl C.difficile Tox A&B urine cx noted PG Care Time/CCT Total # of Minutes Spent Total Time Spent with Patient: Total time spent is greater than 50% in coordination of care (as documented) at patient's floor/unit and/or counseling patient: Coding Level of Care Code 45570 Subseq Hosp Care Lvl 3 Diagnoses Acute on chronic right-sided congestive heart failure I50.813 Bilateral pleural effusion J90 Acute respiratory failure with hypoxia J96.01 Diarrhea R19.7 Diarrhea type: unspecified type Nausea & vomiting R11.2 Vomiting Intractability: unspecified Vomiting type: unspecified Depression F32.9 Active/Remission status: remission status unspecified Depression Type: major depressive disorder Major depression recurrence: single episode UTI (urinary tract infection) N30.00 Hematuria presence: without hematuria Urinary tract infection type: acute cystitis Diabetes mellitus E11.9 Diabetes mellitus complication status: without complication Diabetes mellitus mcfp insulin use: without mcfp use Diabetes mellitus type: type 2 Hypertension I10 Hypertension type: essential hypertension PAF (paroxysmal atrial fibrillation) I48.0 Abnormal LFTs R94.5 Proteinuria R80.9 Proteinuria type: unspecified Hypoalbuminemia E88.09 Hypomagnesemia E83.42 Hypokalemia E87.6 Rash R21 DVT prophylaxis Z29.9 (1) UTI (urinary tract infection) Hematuria presence: without hematuria Urinary tract infection type: acute cystitis Qualified Code(s): N30.00 - Acute cystitis without hematuria (2) Diabetes mellitus Diabetes mellitus complication status: without complication Diabetes mellitus mcfp insulin use: without mcfp use Diabetes mellitus type: type 2 Qualified Code(s): E11.9 - Type 2 diabetes mellitus without complications (3) Depression Active/Remission status: remission status unspecified Depression Type: major depressive disorder Major depression recurrence: single episode Qualified Code(s): F32.9 - Major depressive disorder, single episode, unspecified (4) Diarrhea Diarrhea type: unspecified type Qualified Code(s): R19.7 - Diarrhea, unspecified (5) Proteinuria Proteinuria type: unspecified Qualified Code(s): R80.9 - Proteinuria, unspecified (6) Nausea & vomiting Vomiting Intractability: unspecified Vomiting type: unspecified Qualified Code(s): R11.2 - Nausea with vomiting, unspecified (7) Hypertension Hypertension type: essential hypertension Qualified Code(s): I10 - Essential (primary) hypertension
[2020-01-11 17:52] LABS: BUN Creatinine Ratio 18.1 (10-20); Calcium 8.7 mg/dl (8.5-10.1); Creatinine Clr Calc Pharmacy 35.7 ml/min; Est GFR (African American) 54.4
[2020-01-11] MEDS: TRIAMCINOLONE ACET 0.1% CR 15 GM TUBE EXT SCH ×2 (20:49→20:50)
[2020-01-11] MEDS: dilTIAZem HCL 120 MG CAPCR PO SCH (20:49)
[2020-01-12 06:38] LABS: BUN Creatinine Ratio 18.4 (10-20); Calcium 8.1 mg/dl (8.5-10.1); Creatinine Clr Calc Pharmacy 38.5 ml/min; Est GFR (African American) 59.8; Est GFR (Non-African American) 51.6; Potassium 4.1 mmol/L (3.5-5.1)
[2020-01-12] MEDS: INSULIN ASPART 100 UNITS/ML 3 ML PEN SC SCH ×4 (08:21→20:26)
[2020-01-12] MEDS: POTASSIUM CHLORIDE 20 MEQ TABCR PO SCH ×3 (08:22→20:25)
[2020-01-12] MEDS: CYANOCOBALAMIN 500 MCG TABLET (VITAMIN B-12) PO SCH (08:22)
[2020-01-12] MEDS: LACTOBACILLUS ACIDOPHILUS (FLORANEX) TAB PO SCH ×3 (08:22→17:05)
[2020-01-12] MEDS: lisinopriL 10 MG TAB PO SCH (08:22)
[2020-01-12] MEDS: CEROVITE ADV FORMULA TAB PO SCH (08:22)
[2020-01-12] MEDS: SERTRALINE HCL 50 MG TABLET PO SCH (08:22)
[2020-01-12] MEDS: METOPROLOL TARTRATE 50 MG TAB PO SCH ×2 (08:23→20:24)
[2020-01-12] MEDS: FUROSEMIDE 40 MG in SYRINGE 0 ML IV SCH (08:23)
[2020-01-12] MEDS: APIXABAN 2.5 MG TAB PO SCH ×2 (08:23→20:25)
[2020-01-12] MEDS: SULFAMETHOXAZOLE/TRIMETHOPRIM DS 800/160MG TAB PO SCH ×2 (08:23→20:25)
[2020-01-12] MEDS: PANTOprazole 40 MG TAB PO SCH (08:23)
[2020-01-12] MEDS: SUCRALFATE 1 GM/10 ML UDC PO SCH ×4 (08:23→20:25)
[2020-01-12] MEDS: DICLOFENAC SOD 1% GEL 100 GM TUBE EXT SCH ×3 (08:24→20:26)
[2020-01-12] MEDS ORDERED: lisinopriL 20 MG TAB PO SCH (09:00)
[2020-01-12] MEDS: TRIAMCINOLONE ACET 0.1% CR 15 GM TUBE EXT SCH ×3 (11:43→20:23)
--- NOTE | 2020-01-12 16:24 | Hospitalist Progress Note ---
Date of Service January 12, 2020 Assessment & Plan (1) Acute on chronic right-sided congestive heart failure: IMPROVED with diuresis. She has had little UOP today, however, with AM lasix. Thus, will stop IV lasix. Echo with diastolic dysfunction, grade 2; preserved EF; and mild right-sided congestive heart failure. etiology of right-sided CHF is uncertain. no h/o PE or obvious SREE. no chronic lung disease. 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 daily weights. strict I's and O's. metoprolol tartrate should be changed to toprol xl or coreg prior to d/c. good candidate for CHF clinic. severe hypoalbuminemia and proteinuria may be contributing to volume overload as well. was not taking diuretic therapy pre-hospitalization - perhaps 20 or 40mg of lasix daily. defer to oncoming attending. (2) Pulmonary HTN: severe. etiology uncertain. no prior h/o PE or SREE. could be idiopathic. severe pulmonary HTN could have caused her right-sided CHF. cont to assess day to day for any O2 needs. (3) Rash: suspect drug rxn to Unasyn. she had several doses of such and then the rash occurred. she had prior existing drug allergy to cephalosporins. did change to bactrim AM of 01/11/20 but I do not suspect bactrim is culprit. placed Unasyn on allergy list. start solumedrol 30mg IV daily and follow rash. topical steroids TID for itching as well. (4) Bilateral pleural effusion: 2nd to decompensated CHF, +/- severe proteinuria/hypoalbuminemia O2 weaned off and lung exam improved. (5) Acute respiratory failure with hypoxia: 2nd to volume overload/CHF. resolved. off O2. (6) Diarrhea: Etiology? c diff toxin gene + but toxin negative -- thus, she is carrier. no Rx needed. stool cx thus far neg. diarrhea has been improved since here. follow. (7) Nausea & vomiting: chronic, present for months if not longer. Symptoms sound like severe reflux disease/regurgitation. CT abd/pelvis on 10/11/2019 without gastric pathology or small bowel pathology. Attempted barium swallow but could not be obtained. However, symptoms drastically improved with empiric PPI + carafate. Cannot r/o gastroparesis from longstanding DM. Cont PPI w/ carafate. (8) Depression: cont SSRI. (9) UTI (urinary tract infection): e.coli resistant to several PO abx including augmentin. cephalosporin and quinolone allergy. had been receiving unasyn - stopped due to possible allergy and e.coli resistance. changed to po bactrim AM of 01/11/20. complete 7 days of bactrim. (10) Diabetes mellitus: long-standing. thus far controlled on supplemental novolog but hyperglycemia likely to occur w/ steroids. a1c 7.3%. (11) Hypertension: uncontrolled. consider changing metoprolol to coreg. ANNETTA increased to 20mg/day (12) PAF (paroxysmal atrial fibrillation): noted. is on BB and eliquis BID. cont both. telemetry. (13) Abnormal LFTs: 2nd to right-sided heart failure (ie - passive congestion of liver). liver us unremarkable. LFTs improved with diuresis. (14) Proteinuria: 4+ on u/a. this needs to be repeated and if still significant consider 24-hour urine. Cr <1 at this time. 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 (15) Hypoalbuminemia: 2nd diabetic nephropathy? due to chronic regurgitation? protein loss in diarrhea? combination? nutrition consult while here. added MVI. (16) Hypomagnesemia: replaced and resolved (17) Hypokalemia: replaced and resolved BMP am (18) DVT prophylaxis: eliquis 2.5mg BID progressing nicely KyleighHemalatha Marcial updated by phone yesterday sent message to Suha Penny today back to [facility] next 1-2 days Admission and Anticipated Discharge Date Admission Date: January 09, 2020 Subjective patient continues to be quite pleased that she is tolerating meals and NOT having emesis/reflux/regurgitation keeping all meals down her dyspnea at rest is resolved remains off of NC O2 she denies cough rash on back is quite pruritic it is worse today than yesterday spreading to flanks, buttocks, and abdominal wall overall feeling much better telemetry overnight wnl Review of Systems Constitutional: no fever, no fatigue and no anorexia Respiratory: no cough, no dyspnea and no wheezing Cardiovascular: no chest pain Gastrointestinal: no abdominal pain, no heartburn and no vomiting Physical Exam Constitutional: no acute distress and no altered mental status ENMT: external ear and nose normal, oropharynx normal Respiratory: no respiratory distress Auscultation: + diminished lung sounds (both bases but improved); no crackles and no wheezes Cardiovascular: Rate/Rhythm: regular rate and regular rhythm Heart Sounds: normal S1, normal S2 and + murmur (1/6 LSB) Vessels: + JVD, posterior tibial pulses present and dorsalis pedis pulses present Extremities: + edema (1+ b/l ) Gastrointestinal (Abdomen): normal bowel sounds, soft, nontender, no hepatosplenomegaly Skin: erythematous rash - macular- diffuse on back, buttocks, abdominal wall - MUCH worse than previous Psychiatric: A+Ox3, euthymic affect Results & Data Results & Data ([facility]) Vital Signs (Past 12 Hours) Vital Signs Temp Pulse Resp BP BP Pulse Ox 01/12/20 15:40 36.6 C 50 L 18 121/71 95 01/12/20 11:29 36.4 C L 52 L 21 124/49 L 96 01/12/20 07:30 36.8 C 56 L 20 164/69 H 94 Laboratory Results Laboratory Results - last 24 hr 01/11/20 01/11/20 01/12/20 17:06 20:48 05:19 Sodium 141 140 Potassium 4.0 4.1 Chloride 101 100 Carbon Dioxide 33 H 36 H Anion Gap 7.0 4.0 BUN 19 H 18 Creatinine 1.07 0.99 Est Cr Clr Drug Dosing 35.7 38.5 Est GFR ( Amer) 54.4 59.8 Est GFR (Non-Af Amer) 47.0 51.6 BUN/Creatinine Ratio 18.1 18.4 Glucose 122 H 93 POC Glucose 97 Calcium 8.7 8.1 L Specimen Hemolysis 01/12/20 01/12/20 01/12/20 07:17 11:20 16:21 Sodium Potassium Chloride Carbon Dioxide Anion Gap BUN Creatinine Est Cr Clr Drug Dosing Est GFR ( Amer) Est GFR (Non-Af Amer) BUN/Creatinine Ratio Glucose POC Glucose 95 152 H 116 H Calcium Specimen Hemolysis PG Care Time/CCT Total # of Minutes Spent Total Time Spent with Patient: Total time spent is greater than 50% in coordination of care (as documented) at patient's floor/unit and/or counseling patient: Coding Level of Care Code 37001 Subseq Hosp Care Lvl 3 Diagnoses Acute on chronic right-sided congestive heart failure I50.813 Pulmonary HTN I27.20 Rash R21 Bilateral pleural effusion J90 Acute respiratory failure with hypoxia J96.01 Diarrhea R19.7 Diarrhea type: unspecified type Nausea & vomiting R11.2 Vomiting Intractability: unspecified Vomiting type: unspecified Depression F32.9 Active/Remission status: remission status unspecified Depression Type: major depressive disorder Major depression recurrence: single episode UTI (urinary tract infection) N30.00 Hematuria presence: without hematuria Urinary tract infection type: acute cystitis Diabetes mellitus E11.9 Diabetes mellitus complication status: without complication Diabetes mellitus electronic data processing auditor insulin use: without electronic data processing auditor use Diabetes mellitus type: type 2 Hypertension I10 Hypertension type: essential hypertension PAF (paroxysmal atrial fibrillation) I48.0 Abnormal LFTs R94.5 Proteinuria R80.9 Proteinuria type: unspecified Hypoalbuminemia E88.09 Hypomagnesemia E83.42 Hypokalemia E87.6 DVT prophylaxis Z29.9 (1) UTI (urinary tract infection) Hematuria presence: without hematuria Urinary tract infection type: acute cystitis Qualified Code(s): N30.00 - Acute cystitis without hematuria (2) Diabetes mellitus Diabetes mellitus complication status: without complication Diabetes mellitus half-way insulin use: without electronic data processing auditor use Diabetes mellitus type: type 2 Qualified Code(s): E11.9 - Type 2 diabetes mellitus without complications (3) Depression Active/Remission status: remission status unspecified Depression Type: major depressive disorder Major depression recurrence: single episode Qualified Code(s): F32.9 - Major depressive disorder, single episode, unspecified (4) Diarrhea Diarrhea type: unspecified type Qualified Code(s): R19.7 - Diarrhea, unspecified (5) Proteinuria Proteinuria type: unspecified Qualified Code(s): R80.9 - Proteinuria, unspecified (6) Nausea & vomiting Vomiting Intractability: unspecified Vomiting type: unspecified Qualified Code(s): R11.2 - Nausea with vomiting, unspecified (7) Hypertension Hypertension type: essential hypertension Qualified Code(s): I10 - Essential (primary) hypertension
[2020-01-12] MEDS ORDERED: methylPREDNISolone 30 MG in SYRINGE 0 ML IV ONE (17:00)
[2020-01-12] MEDS: dilTIAZem HCL 120 MG CAPCR PO SCH (20:24)
[2020-01-13 05:58] LABS: Eosinophils # (auto) 0.03 K/uL (0-0.5); Eosinophils % (auto) 0.5 %; Hematocrit (blood only) 35.8 % (37-47); Hemoglobin 11.5 g/dL (12.0-16.0); Immature Granulocytes # (auto) 0.01 K/uL (0.00-0.02); Immature Granulocytes % (auto) 0.2 %; Lymphocytes # (auto) 0.26 K/uL (1.2-3.4); Lymphocytes % (auto) 4.5 %; Mean Corpuscular Hemoglobin 26.1 pg (25-34); Mean Corpuscular Hgb Conc 32.1 g/dL (32-36); Mean Corpuscular Volume 81.2 fL (80-100); Mean Platelet Volume 9.3 fL (7.4-10.4); Monocytes # (auto) 0.19 K/uL (0.11-0.59); Monocytes % (auto) 3.3 %; Neutrophils # (auto) 5.23 K/uL (1.4-6.5); Neutrophils % (auto) 91.5 %; Platelet Count 321 K/uL (130-400); RDW Coefficient of Variation 19.8 % (11.5-14.5); RDW Standard Deviation 58.9 fL (36.4-46.3); Red Blood Count 4.41 M/uL (4.2-5.4); White Blood Count 5.72 K/uL (4.8-10.8)
[2020-01-13 06:37] LABS: BUN Creatinine Ratio 18.8 (10-20); Creatinine Clr Calc Pharmacy 29.8 ml/min; Est GFR (African American) 43.4; Est GFR (Non-African American) 37.5; Potassium 5.1 mmol/L (3.5-5.1)
[2020-01-13] MEDS: SULFAMETHOXAZOLE/TRIMETHOPRIM DS 800/160MG TAB PO SCH ×2 (08:05→21:07)
[2020-01-13] MEDS: TRIAMCINOLONE ACET 0.1% CR 15 GM TUBE EXT SCH ×3 (08:05→21:06)
[2020-01-13] MEDS: SUCRALFATE 1 GM/10 ML UDC PO SCH ×4 (08:06→21:05)
[2020-01-13] MEDS: CYANOCOBALAMIN 500 MCG TABLET (VITAMIN B-12) PO SCH (08:07)
[2020-01-13] MEDS: CEROVITE ADV FORMULA TAB PO SCH (08:07)
[2020-01-13] MEDS: APIXABAN 2.5 MG TAB PO SCH ×2 (08:07→21:06)
[2020-01-13] MEDS: METOPROLOL TARTRATE 50 MG TAB PO SCH ×2 (08:07→21:06)
[2020-01-13] MEDS: PANTOprazole 40 MG TAB PO SCH (08:07)
[2020-01-13] MEDS: LACTOBACILLUS ACIDOPHILUS (FLORANEX) TAB PO SCH ×3 (08:07→17:05)
[2020-01-13] MEDS: SERTRALINE HCL 50 MG TABLET PO SCH (08:07)
[2020-01-13] MEDS: DICLOFENAC SOD 1% GEL 100 GM TUBE EXT SCH ×3 (08:08→21:07)
[2020-01-13] MEDS: INSULIN ASPART 100 UNITS/ML 3 ML PEN SC SCH ×4 (08:11→21:07)
--- NOTE | 2020-01-13 14:55 | Hospitalist Progress Note ---
Date of Service January 13, 2020 Assessment & Plan (1) Acute on chronic right-sided congestive heart failure: IMPROVED with diuresis. Cr up slightly at 1.29, hold Lasix today, has mild edema in legs but likely volume contracted as CO2 up at 33 Echo with diastolic dysfunction, grade 2; preserved EF; and mild right-sided congestive heart failure. etiology of right-sided CHF is uncertain. no h/o PE or obvious SREE. no chronic lung disease. 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 daily weights. strict I's and O's. metoprolol tartrate should be changed to toprol xl or coreg prior to d/c. good candidate for CHF clinic. severe hypoalbuminemia and proteinuria may be contributing to volume overload as well. plan to start on Lasix 40mg PO daily tomorrow if Cr is stable (2) Pulmonary HTN: severe. etiology uncertain. no prior h/o PE or SREE. could be idiopathic. severe pulmonary HTN could have caused her right-sided CHF. 97% on room air today (3) Rash: suspect drug rxn to Unasyn. she had several doses of such and then the rash occurred. she had prior existing drug allergy to cephalosporins. did change to bactrim AM of 01/11/20 but bactrim is not culprit. placed Unasyn on allergy list. topical steroids TID for itching, hold further IV steroids (4) Bilateral pleural effusion: 2nd to decompensated CHF, +/- severe proteinuria/hypoalbuminemia O2 weaned off and lung exam improved. (5) Acute respiratory failure with hypoxia: 2nd to volume overload/CHF. resolved. off O2 for days (6) Diarrhea: Etiology? c diff toxin gene + but toxin negative -- thus, she is carrier. no Rx needed. stool cx thus far neg. diarrhea has been improved since here. follow. (7) Nausea & vomiting: chronic, present for months if not longer. Symptoms sound like severe reflux disease/regurgitation. CT abd/pelvis on 10/11/2019 without gastric pathology or small bowel pathology. Attempted barium swallow but could not be obtained. However, symptoms drastically improved with empiric PPI + carafate. Cannot r/o gastroparesis from longstanding DM. Cont PPI w/ carafate. (8) Depression: cont SSRI. (9) UTI (urinary tract infection): e.coli resistant to several PO abx including augmentin. cephalosporin and quinolone allergy. had been receiving unasyn - stopped due to possible allergy and e.coli resistance. changed to po bactrim AM of 01/11/20. complete 7 days of bactrim. (10) Diabetes mellitus: long-standing. thus far controlled on supplemental novolog but hyperglycemia likely to occur w/ steroids. a1c 7.3%. (11) Hypertension: uncontrolled. consider changing metoprolol to coreg. hold ANNETTA due to rise in Cr this morning BP stable (12) PAF (paroxysmal atrial fibrillation): noted. is on BB and eliquis BID. cont both. telemetry. (13) Abnormal LFTs: 2nd to right-sided heart failure (ie - passive congestion of liver). liver us unremarkable. LFTs improved with diuresis. (14) Proteinuria: 4+ on u/a. likely diabetic nephropathy. (15) Hypoalbuminemia: 2nd diabetic nephropathy? due to chronic regurgitation? protein loss in diarrhea? combination? nutrition consult while here. added MVI. (16) Hypomagnesemia: replaced and resolved (17) Hypokalemia: replaced and resolved K is 5.1 (18) DVT prophylaxis: eliquis 2.5mg BID progressing nicely back to [facility], possibly tomorrow, check labs in AM Admission and Anticipated Discharge Date Admission Date: January 09, 2020 Subjective patient seen this morning, she is sitting up in a chair said she ate her breakfast no difficulty breathing while at rest reviewed labs, CBC stable, Cr is up to 1.29, CO2 33, K 5.1 reviewed chart, prior notes as this is my first day with patient discussed with CM, patient plans to return to [facility] Review of Systems Review of Systems: All systems reviewed & are unremarkable except as noted in Subjective Constitutional: + fatigue and + weakness; no fever Respiratory: + dyspnea on exertion; no cough and no dyspnea Cardiovascular: + edema (bilateral lower legs); no chest pain Physical Exam Constitutional: well developed, + thin and + frail appearing; no acute distress Eyes: PERRL, conjunctivae normal, anicteric sclerae ENMT: external ear and nose normal, oropharynx normal Neck: trachea midline, no thyromegaly Respiratory: normal respiratory effort, lungs clear to auscultation Cardiovascular: Rate/Rhythm: regular rate and regular rhythm Heart Sounds: normal S1 and normal S2; no murmur Vessels: no JVD Extremities: normal capillary refill and + edema (+1 bilaterally) Gastrointestinal (Abdomen): normal bowel sounds, soft, nontender, no hepatosplenomegaly Musculoskeletal: Head/Neck/Chest: normocephalic, head atraumatic and neck supple Extremities: extremities normal to inspection and + abnormal strength (generalized weakness, cannot transfer); no cyanosis and no clubbing Skin: no rashes, warm and dry Neurologic: patellar DTR's 2+ bilat, sensation intact and PERRL, EOMI, accommodation nl, no face palsy, no dysarthria Psychiatric: A+Ox3, euthymic affect Lymphatic: no cervical or axillary lymphadenopathy Results & Data Results & Data ([facility]) Vital Signs (Past 12 Hours) Vital Signs Temp Pulse Resp BP BP Pulse Ox 01/13/20 11:15 36.3 C L 48 L 18 97/58 L 98 01/13/20 07:06 36.6 C 58 L 19 150/63 H 96 01/13/20 03:47 36.4 C L 57 L 16 134/73 94 Laboratory Results Laboratory Results - last 24 hr 01/12/20 01/12/20 01/13/20 16:21 20:03 05:19 WBC 5.72 RBC 4.41 Hgb 11.5 L Hct 35.8 L MCV 81.2 MCH 26.1 MCHC 32.1 RDW Std Deviation 58.9 H RDW Coeff of Addi 19.8 H Plt Count 321 MPV 9.3 Immature Gran % (Auto) 0.2 Neut % (Auto) 91.5 Lymph % (Auto) 4.5 Colbert % (Auto) 3.3 Eos % (Auto) 0.5 Baso % (Auto) 0.0 Neut # (Auto) 5.23 Lymph # (Auto) 0.26 L Colbert # (Auto) 0.19 Eos # (Auto) 0.03 Baso # (Auto) 0.00 Immature Gran # (Auto) 0.01 Sodium Potassium Chloride Carbon Dioxide Anion Gap BUN Creatinine Est Cr Clr Drug Dosing Est GFR ( Amer) Est GFR (Non-Af Amer) BUN/Creatinine Ratio Glucose POC Glucose 116 H 248 H Calcium 01/13/20 01/13/20 01/13/20 05:19 07:05 11:15 WBC RBC Hgb Hct MCV MCH MCHC RDW Std Deviation RDW Coeff of Addi Plt Count MPV Immature Gran % (Auto) Neut % (Auto) Lymph % (Auto) Colbert % (Auto) Eos % (Auto) Baso % (Auto) Neut # (Auto) Lymph # (Auto) Colbert # (Auto) Eos # (Auto) Baso # (Auto) Immature Gran # (Auto) Sodium 135 L Potassium 5.1 D Chloride 99 Carbon Dioxide 33 H Anion Gap 3.0 BUN 24 H Creatinine 1.29 H D Est Cr Clr Drug Dosing 29.8 Est GFR ( Amer) 43.4 Est GFR (Non-Af Amer) 37.5 BUN/Creatinine Ratio 18.8 Glucose 196 H POC Glucose 201 H 175 H Calcium 8.0 L Medications Administered Current Inpatient Medications Acetaminophen (Acetaminophen 325 Mg Tab) 650 mg PO Q4 PRN PRN Reason: fever/pain Stop: 02/08/20 23:50 Apixaban (Apixaban 2.5 Mg Tab) 2.5 mg PO BID JENNIFER Stop: 02/09/20 08:59 Last Admin: 01/13/20 08:07 Dose: 2.5 mg Documented by: Cyanocobalamin (Cyanocobalamin 500 Mcg Tablet (Vitamin B-12)) 1,000 mcg PO DAILY JENNIFER Stop: 02/09/20 08:59 Last Admin: 01/13/20 08:07 Dose: 1,000 mcg Documented by: Dextrose (Dextrose 50% 50 Ml Syringe) 25 - 50 ml IV UD PRN; Protocol PRN Reason: Hypoglycemia Protocol Stop: 02/08/20 23:50 Diclofenac Sodium (Diclofenac Sod 1% Gel 100 Gm Tube) 1 gm EXT TID JENNIFER Stop: 02/09/20 08:59 Last Admin: 01/13/20 13:37 Dose: Not Given Documented by: Diltiazem HCl (Diltiazem Hcl 120 Mg Capcr) 120 mg PO QPM JENNIFER Stop: 02/08/20 23:50 Last Admin: 01/12/20 20:24 Dose: 120 mg Documented by: Glucagon (Glucagon For Inj 1 Mg Vial) 1 mg SQ UD PRN; Protocol PRN Reason: Hypoglycemia Protocol Stop: 02/08/20 23:50 Glucose (Glucose 10 Tabs/Tube) 4 - 8 tabs PO UD PRN; Protocol PRN Reason: Hypoglycemia Protocol Stop: 02/08/20 23:50 Glucose (Glucose 40% Gel 15 Gm Tube) 15 - 30 gm PO UD PRN; Protocol PRN Reason: Hypoglycemia Protocol Stop: 02/08/20 23:50 Insulin Aspart (Insulin Aspart 100 Units/Ml 3 Ml Pen) 0 units SC ACHS [facility] Stop: 02/09/20 00:14 Last Admin: 01/13/20 12:00 Dose: 6 units Documented by: Lactobacillus Acidophilus (Lactobacillus Acidophilus (Floranex) Tab) 4 tab PO TIDM JENNIFER Stop: 02/09/20 11:59 Last Admin: 01/13/20 12:02 Dose: 4 tab Documented by: Lisinopril (Lisinopril 20 Mg Tab) 20 mg PO DAILY [facility] Stop: 02/11/20 08:59 Last Admin: 01/12/20 11:42 Dose: 10 mg Documented by: Metoprolol Tartrate (Metoprolol Tartrate 50 Mg Tab) 50 mg PO BID [facility] Stop: 02/09/20 08:59 Last Admin: 01/13/20 08:07 Dose: 50 mg Documented by: Miscellaneous (Carbohydrates For Hypoglycemia ) 15 - 30 gm PO UD PRN PRN Reason: Hypoglycemia Protocol Stop: 02/08/20 23:50 Multivitamins/Minerals (Cerovite Adv Formula Tab) 1 tab PO QAM [facility] Stop: 02/10/20 08:59 Last Admin: 01/13/20 08:07 Dose: 1 tab Documented by: Ondansetron HCl (Ondansetron Inj 2 Mg/Ml 2 Ml Vial) 4 mg IV Q6H PRN PRN Reason: Nausea Stop: 02/08/20 23:50 Pantoprazole Sodium (Pantoprazole 40 Mg Tab) 40 mg PO QAM [facility] Stop: 02/09/20 15:59 Last Admin: 01/13/20 08:07 Dose: 40 mg Documented by: Sertraline HCl (Sertraline Hcl 50 Mg Tablet) 25 mg PO QAM [facility] Stop: 02/09/20 08:59 Last Admin: 01/13/20 08:07 Dose: 25 mg Documented by: Sucralfate (Sucralfate 1 Gm/10 Ml Udc) 1 gm PO QID [facility] Stop: 02/09/20 16:59 Last Admin: 01/13/20 12:02 Dose: 1 gm Documented by: Triamcinolone Acetonide (Triamcinolone Acet 0.1% Cr 15 Gm Tube) 1 appln EXT TID JENNIFER Stop: 02/10/20 18:44 Last Admin: 01/13/20 13:37 Dose: 1 appln Documented by: Trimethoprim/Sulfamethoxazole (Sulfamethoxazole/Trimethoprim Ds 800/160mg Tab) 1 tab PO Q12 JENNIFER Stop: 01/16/20 08:59 Last Admin: 01/13/20 08:05 Dose: 1 tab Documented by: PG Care Time/CCT Total # of Minutes Spent Total Time Spent with Patient: Total time spent is greater than 50% in coordination of care (as documented) at patient's floor/unit and/or counseling patient: Coding Level of Care Code 08216 Subseq Hosp Care Lvl 3 Diagnoses Acute on chronic right-sided congestive heart failure I50.813 Pulmonary HTN I27.20 Rash R21 Bilateral pleural effusion J90 Acute respiratory failure with hypoxia J96.01 Diarrhea R19.7 Diarrhea type: unspecified type Nausea & vomiting R11.2 Vomiting Intractability: unspecified Vomiting type: unspecified Depression F32.9 Active/Remission status: remission status unspecified Depression Type: major depressive disorder Major depression recurrence: single episode UTI (urinary tract infection) N30.00 Hematuria presence: without hematuria Urinary tract infection type: acute cystitis Diabetes mellitus E11.9 Diabetes mellitus complication status: without complication Diabetes mellitus penitentiary insulin use: without watermaster use Diabetes mellitus type: type 2 Hypertension I10 Hypertension type: essential hypertension PAF (paroxysmal atrial fibrillation) I48.0 Abnormal LFTs R94.5 Proteinuria R80.9 Proteinuria type: unspecified Hypoalbuminemia E88.09 Hypomagnesemia E83.42 Hypokalemia E87.6 DVT prophylaxis Z29.9 (1) UTI (urinary tract infection) Hematuria presence: without hematuria Urinary tract infection type: acute cystitis Qualified Code(s): N30.00 - Acute cystitis without hematuria (2) Diabetes mellitus Diabetes mellitus complication status: without complication Diabetes mellitus watermaster insulin use: without penitentiary use Diabetes mellitus type: type 2 Qualified Code(s): E11.9 - Type 2 diabetes mellitus without complications (3) Depression Active/Remission status: remission status unspecified Depression Type: major depressive disorder Major depression recurrence: single episode Qualified Code(s): F32.9 - Major depressive disorder, single episode, unspecified (4) Diarrhea Diarrhea type: unspecified type Qualified Code(s): R19.7 - Diarrhea, unspecified (5) Proteinuria Proteinuria type: unspecified Qualified Code(s): R80.9 - Proteinuria, unspecified (6) Nausea & vomiting Vomiting Intractability: unspecified Vomiting type: unspecified Qualified Code(s): R11.2 - Nausea with vomiting, unspecified (7) Hypertension Hypertension type: essential hypertension Qualified Code(s): I10 - Essential (primary) hypertension
[2020-01-13] MEDS: dilTIAZem HCL 120 MG CAPCR PO SCH (21:06)
[2020-01-14 07:54] LABS: Hematocrit (blood only) 38.6 % (37-47); Hemoglobin 12.4 g/dL (12.0-16.0); Mean Corpuscular Hemoglobin 25.9 pg (25-34); Mean Corpuscular Hgb Conc 32.1 g/dL (32-36); Mean Corpuscular Volume 80.8 fL (80-100); Mean Platelet Volume 9.9 fL (7.4-10.4); Platelet Count 383 K/uL (130-400); RDW Coefficient of Variation 19.8 % (11.5-14.5); RDW Standard Deviation 58.5 fL (36.4-46.3); Red Blood Count 4.78 M/uL (4.2-5.4); White Blood Count 6.48 K/uL (4.8-10.8)
[2020-01-14 08:25] LABS: BUN Creatinine Ratio 19.3 (10-20); Calcium 8.6 mg/dl (8.5-10.1); Creatinine Clr Calc Pharmacy 26.3 ml/min; Est GFR (African American) 37.4; Est GFR (Non-African American) 32.3; Magnesium 1.8 mg/dl (1.8-2.4); Phosphorus 2.4 mg/dl (2.5-4.9); Potassium 5.4 mmol/L (3.5-5.1)
[2020-01-14] MEDS: INSULIN ASPART 100 UNITS/ML 3 ML PEN SC SCH ×4 (08:52→20:52)
[2020-01-14] MEDS: TRIAMCINOLONE ACET 0.1% CR 15 GM TUBE EXT SCH ×3 (08:53→20:51)
[2020-01-14] MEDS: APIXABAN 2.5 MG TAB PO SCH ×2 (08:53→20:51)
[2020-01-14] MEDS: SUCRALFATE 1 GM/10 ML UDC PO SCH ×4 (08:53→20:51)
[2020-01-14] MEDS: LACTOBACILLUS ACIDOPHILUS (FLORANEX) TAB PO SCH ×3 (08:53→16:47)
[2020-01-14] MEDS: METOPROLOL TARTRATE 50 MG TAB PO SCH ×2 (08:54→20:51)
[2020-01-14] MEDS: CEROVITE ADV FORMULA TAB PO SCH (08:54)
[2020-01-14] MEDS: PANTOprazole 40 MG TAB PO SCH (08:55)
[2020-01-14] MEDS: SULFAMETHOXAZOLE/TRIMETHOPRIM DS 800/160MG TAB PO SCH (08:55)
[2020-01-14] MEDS: DICLOFENAC SOD 1% GEL 100 GM TUBE EXT SCH ×3 (08:55→20:52)
[2020-01-14] MEDS: CYANOCOBALAMIN 500 MCG TABLET (VITAMIN B-12) PO SCH (08:55)
[2020-01-14] MEDS: SERTRALINE HCL 50 MG TABLET PO SCH (08:56)
[2020-01-14] MEDS ORDERED: SODIUM CHLORIDE 0.9% 1000ML 500 ML IV ONE (09:12)
[2020-01-14] MEDS ORDERED: SODIUM POLYSTYRENE SULFONATE 15G/60ML SUSP PO STA (09:14)
[2020-01-14 15:13] LABS: Calcium 8.6 mg/dl (8.5-10.1); Creatinine Clr Calc Pharmacy 25.9 ml/min; Est GFR (African American) 36.8; Est GFR (Non-African American) 31.7; Potassium 5.4 mmol/L (3.5-5.1)
--- NOTE | 2020-01-14 16:03 | Hospitalist Progress Note ---
Date of Service January 14, 2020 Assessment & Plan (1) JESSICA (acute kidney injury): Cr up from 1.2 to 1.4 could it be from Lasix? no lasix yesterday, still making urine it could also be from Bactrim, will stop Bactrim as not sure what we are treating hold ANNETTA inhibitor (2) Hyperkalemia: given Kayexalate in the morning and 500cc fluid balance repeat K in the morning hyperkalemia due to JESSICA (3) Acute on chronic right-sided congestive heart failure: IMPROVED with diuresis. Cr up slightly at 1.48, hold Lasix today, has mild edema in legs but likely volume contracted as CO2 up at 33 Echo with diastolic dysfunction, grade 2; preserved EF; and mild right-sided congestive heart failure. etiology of right-sided CHF is uncertain. no h/o PE or obvious SREE. no chronic lung disease. 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 daily weights. strict I's and O's. metoprolol tartrate should be changed to toprol xl or coreg prior to d/c. good candidate for CHF clinic. severe hypoalbuminemia and proteinuria may be contributing to volume overload as well. plan to start on Lasix 40mg PO daily at time of discharge (4) Pulmonary HTN: severe. etiology uncertain. no prior h/o PE or SREE. could be idiopathic. severe pulmonary HTN could have caused her right-sided CHF. 97% on room air today (5) Rash: suspect drug rxn to Unasyn. she had several doses of such and then the rash occurred. she had prior existing drug allergy to cephalosporins. did change to bactrim AM of 01/11/20 but bactrim is not culprit, Bactrim to stopped due to worsening renal function placed Unasyn on allergy list. topical steroids TID for itching, hold further IV steroids (6) Bilateral pleural effusion: 2nd to decompensated CHF, +/- severe proteinuria/hypoalbuminemia O2 weaned off and lung exam improved. (7) Acute respiratory failure with hypoxia: 2nd to volume overload/CHF. resolved. off O2 for days (8) Diarrhea: Etiology? c diff toxin gene + but toxin negative -- thus, she is carrier. no Rx needed. stool cx -- Auromonas typically self limiting and diarrhea already better only treat if systemic symptoms will observe onlny diarrhea has been improved since here. follow. (9) Nausea & vomiting: chronic, present for months if not longer. Symptoms sound like severe reflux disease/regurgitation. CT abd/pelvis on 10/11/2019 without gastric pathology or small bowel pathology. Attempted barium swallow but could not be obtained. However, symptoms drastically improved with empiric PPI + carafate. Cannot r/o gastroparesis from longstanding DM. Cont PPI w/ carafate. (10) Depression: cont SSRI. (11) UTI (urinary tract infection): e.coli resistant to several PO abx including augmentin. cephalosporin and quinolone allergy. had been receiving unasyn - stopped due to possible allergy and e.coli resistance. changed to po bactrim AM of 01/11/20. complete 7 days of bactrim. (12) Diabetes mellitus: long-standing. thus far controlled on supplemental novolog but hyperglycemia likely to occur w/ steroids. a1c 7.3%. (13) Hypertension: uncontrolled. consider changing metoprolol to coreg. hold ANNETTA due to rise in Cr this morning BP stable (14) PAF (paroxysmal atrial fibrillation): noted. is on BB and eliquis BID. cont both. telemetry. (15) Abnormal LFTs: 2nd to right-sided heart failure (ie - passive congestion of liver). liver us unremarkable. LFTs improved with diuresis. (16) Proteinuria: 4+ on u/a. likely diabetic nephropathy. (17) Hypoalbuminemia: 2nd diabetic nephropathy? due to chronic regurgitation? protein loss in diarrhea? combination? nutrition consult while here. added MVI. (18) Hypomagnesemia: replaced and resolved (19) Hypokalemia: replaced and resolved K is 5.1 (20) DVT prophylaxis: eliquis 2.5mg BID progressing nicely back to [facility], possibly tomorrow, check labs in AM Admission and Anticipated Discharge Date Admission Date: January 09, 2020 Subjective reviewed labs, CR is going up to 1.4 and K high 5.4 patient feels fine, no changes, she thinks she is a little stronger breathing well, no fever, no chills, no cough no further diarrhea received stool culture results, grew out Aeromonas did a search on [employer], typically don't need treated unless bacteremia, systemic symptoms patient's presentation was limited to diarrhea repeat BMP in afternoon, Cr the same at 14 K still 5.4 even after fluids, Kayexalate Review of Systems Review of Systems: All systems reviewed & are unremarkable except as noted in Subjective Physical Exam Constitutional: well developed, + thin and + frail appearing; no acute distress Eyes: PERRL, conjunctivae normal, anicteric sclerae ENMT: external ear and nose normal, oropharynx normal Neck: trachea midline, no thyromegaly Respiratory: normal respiratory effort, lungs clear to auscultation Cardiovascular: Rate/Rhythm: regular rate and regular rhythm Heart Sounds: normal S1 and normal S2; no murmur Vessels: no JVD Extremities: normal capillary refill and + edema (+1 bilaterally) Gastrointestinal (Abdomen): normal bowel sounds, soft, nontender, no hepatosplenomegaly Musculoskeletal: Head/Neck/Chest: normocephalic, head atraumatic and neck supple Extremities: extremities normal to inspection and + abnormal strength (generalized weakness, cannot transfer); no cyanosis and no clubbing Skin: no rashes, warm and dry Neurologic: patellar DTR's 2+ bilat, sensation intact and PERRL, EOMI, accommodation nl, no face palsy, no dysarthria Psychiatric: A+Ox3, euthymic affect Lymphatic: no cervical or axillary lymphadenopathy Results & Data Results & Data ([facility]) Vital Signs (Past 12 Hours) Vital Signs Temp Pulse Resp BP BP Pulse Ox 01/14/20 15:42 36.9 C 52 L 18 140/57 L 95 01/14/20 12:38 36.6 C 80 20 133/57 L 95 01/14/20 08:13 36.8 C 48 L 20 149/65 H 91 Laboratory Results Laboratory Results - last 24 hr 01/13/20 01/13/20 01/14/20 16:27 20:58 06:57 WBC 6.48 RBC 4.78 Hgb 12.4 Hct 38.6 MCV 80.8 MCH 25.9 MCHC 32.1 RDW Std Deviation 58.5 H RDW Coeff of Addi 19.8 H Plt Count 383 MPV 9.9 Sodium Potassium Chloride Carbon Dioxide Anion Gap BUN Creatinine Est Cr Clr Drug Dosing Est GFR ( Amer) Est GFR (Non-Af Amer) BUN/Creatinine Ratio Glucose POC Glucose 131 H 145 H Calcium Phosphorus Magnesium Specimen Hemolysis 01/14/20 01/14/20 01/14/20 06:57 07:16 11:15 WBC RBC Hgb Hct MCV MCH MCHC RDW Std Deviation RDW Coeff of Addi Plt Count MPV Sodium 137 Potassium 5.4 H Chloride 99 Carbon Dioxide 32 Anion Gap 6.0 BUN 28 H Creatinine 1.46 H Est Cr Clr Drug Dosing 26.3 Est GFR ( Amer) 37.4 Est GFR (Non-Af Amer) 32.3 BUN/Creatinine Ratio 19.3 Glucose 98 POC Glucose 94 120 H Calcium 8.6 Phosphorus 2.4 L Magnesium 1.8 Specimen Hemolysis 01/14/20 14:02 WBC RBC Hgb Hct MCV MCH MCHC RDW Std Deviation RDW Coeff of Addi Plt Count MPV Sodium 134 L Potassium 5.4 H Chloride 98 Carbon Dioxide 32 Anion Gap 4.0 BUN 27 H Creatinine 1.48 H Est Cr Clr Drug Dosing 25.9 Est GFR ( Amer) 36.8 Est GFR (Non-Af Amer) 31.7 BUN/Creatinine Ratio 18.0 Glucose 136 H POC Glucose Calcium 8.6 Phosphorus Magnesium Specimen Hemolysis Medications Administered Current Inpatient Medications Acetaminophen (Acetaminophen 325 Mg Tab) 650 mg PO Q4 PRN PRN Reason: fever/pain Stop: 02/08/20 23:50 Apixaban (Apixaban 2.5 Mg Tab) 2.5 mg PO BID JENNIFER Stop: 02/09/20 08:59 Last Admin: 01/14/20 08:53 Dose: 2.5 mg Documented by: Cyanocobalamin (Cyanocobalamin 500 Mcg Tablet (Vitamin B-12)) 1,000 mcg PO DAILY JENNIFER Stop: 02/09/20 08:59 Last Admin: 01/14/20 08:55 Dose: 1,000 mcg Documented by: Dextrose (Dextrose 50% 50 Ml Syringe) 25 - 50 ml IV UD PRN; Protocol PRN Reason: Hypoglycemia Protocol Stop: 02/08/20 23:50 Diclofenac Sodium (Diclofenac Sod 1% Gel 100 Gm Tube) 1 gm EXT TID JENNIFER Stop: 02/09/20 08:59 Last Admin: 01/14/20 14:02 Dose: Not Given Documented by: Diltiazem HCl (Diltiazem Hcl 120 Mg Capcr) 120 mg PO QPM JENNIFER Stop: 02/08/20 23:50 Last Admin: 01/13/20 21:06 Dose: 120 mg Documented by: Glucagon (Glucagon For Inj 1 Mg Vial) 1 mg SQ UD PRN; Protocol PRN Reason: Hypoglycemia Protocol Stop: 02/08/20 23:50 Glucose (Glucose 10 Tabs/Tube) 4 - 8 tabs PO UD PRN; Protocol PRN Reason: Hypoglycemia Protocol Stop: 02/08/20 23:50 Glucose (Glucose 40% Gel 15 Gm Tube) 15 - 30 gm PO UD PRN; Protocol PRN Reason: Hypoglycemia Protocol Stop: 02/08/20 23:50 Insulin Aspart (Insulin Aspart 100 Units/Ml 3 Ml Pen) 0 units SC ACHS JENNIFER Stop: 02/09/20 00:14 Last Admin: 01/14/20 12:52 Dose: 2 units Documented by: Lactobacillus Acidophilus (Lactobacillus Acidophilus (Floranex) Tab) 4 tab PO TIDM JENNIFER Stop: 02/09/20 11:59 Last Admin: 01/14/20 12:53 Dose: 4 tab Documented by: Lisinopril (Lisinopril 20 Mg Tab) 20 mg PO DAILY JENNIFER Stop: 02/11/20 08:59 Last Admin: 01/12/20 11:42 Dose: 10 mg Documented by: Metoprolol Tartrate (Metoprolol Tartrate 50 Mg Tab) 50 mg PO BID JENNIFER Stop: 02/09/20 08:59 Last Admin: 01/14/20 08:54 Dose: Not Given Documented by: Miscellaneous (Carbohydrates For Hypoglycemia ) 15 - 30 gm PO UD PRN PRN Reason: Hypoglycemia Protocol Stop: 02/08/20 23:50 Multivitamins/Minerals (Cerovite Adv Formula Tab) 1 tab PO QAM JENNIFER Stop: 02/10/20 08:59 Last Admin: 01/14/20 08:54 Dose: 1 tab Documented by: Ondansetron HCl (Ondansetron Inj 2 Mg/Ml 2 Ml Vial) 4 mg IV Q6H PRN PRN Reason: Nausea Stop: 02/08/20 23:50 Pantoprazole Sodium (Pantoprazole 40 Mg Tab) 40 mg PO QAM [facility] Stop: 02/09/20 15:59 Last Admin: 01/14/20 08:55 Dose: 40 mg Documented by: Sertraline HCl (Sertraline Hcl 50 Mg Tablet) 25 mg PO QAM JENNIFER Stop: 02/09/20 08:59 Last Admin: 01/14/20 08:56 Dose: 25 mg Documented by: Sucralfate (Sucralfate 1 Gm/10 Ml Udc) 1 gm PO QID JENNIFER Stop: 02/09/20 16:59 Last Admin: 01/14/20 12:53 Dose: 1 gm Documented by: Triamcinolone Acetonide (Triamcinolone Acet 0.1% Cr 15 Gm Tube) 1 appln EXT TID JENNIFER Stop: 02/10/20 18:44 Last Admin: 01/14/20 12:55 Dose: 1 appln Documented by: Trimethoprim/Sulfamethoxazole (Sulfa/Trimeth 400/80mg Tab) 1 tab PO Q12 [facility]; Protocol Stop: 01/16/20 08:59 PG Care Time/CCT Total # of Minutes Spent Total Time Spent with Patient: Total time spent is greater than 50% in coordination of care (as documented) at patient's floor/unit and/or counseling patient: Coding Level of Care Code 73854 Subseq Hosp Care Lvl 3 Diagnoses JESSICA (acute kidney injury) N17.9 Hyperkalemia E87.5 Acute on chronic right-sided congestive heart failure I50.813 Pulmonary HTN I27.20 Rash R21 Bilateral pleural effusion J90 Acute respiratory failure with hypoxia J96.01 Diarrhea R19.7 Diarrhea type: unspecified type Nausea & vomiting R11.2 Vomiting Intractability: unspecified Vomiting type: unspecified Depression F32.9 Active/Remission status: remission status unspecified Depression Type: major depressive disorder Major depression recurrence: single episode UTI (urinary tract infection) N30.00 Hematuria presence: without hematuria Urinary tract infection type: acute cystitis Diabetes mellitus E11.9 Diabetes mellitus complication status: without complication Diabetes mellitus terminal system operator insulin use: without terminal system operator use Diabetes mellitus type: type 2 Hypertension I10 Hypertension type: essential hypertension PAF (paroxysmal atrial fibrillation) I48.0 Abnormal LFTs R94.5 Proteinuria R80.9 Proteinuria type: unspecified Hypoalbuminemia E88.09 Hypomagnesemia E83.42 Hypokalemia E87.6 DVT prophylaxis Z29.9 (1) UTI (urinary tract infection) Hematuria presence: without hematuria Urinary tract infection type: acute cystitis Qualified Code(s): N30.00 - Acute cystitis without hematuria (2) Diabetes mellitus Diabetes mellitus complication status: without complication Diabetes mellitus long-term insulin use: without terminal system operator use Diabetes mellitus type: type 2 Qualified Code(s): E11.9 - Type 2 diabetes mellitus without complications (3) Depression Active/Remission status: remission status unspecified Depression Type: major depressive disorder Major depression recurrence: single episode Qualified Code(s): F32.9 - Major depressive disorder, single episode, unspecified (4) Diarrhea Diarrhea type: unspecified type Qualified Code(s): R19.7 - Diarrhea, unspecified (5) Proteinuria Proteinuria type: unspecified Qualified Code(s): R80.9 - Proteinuria, unspecified (6) Nausea & vomiting Vomiting Intractability: unspecified Vomiting type: unspecified Qualified Code(s): R11.2 - Nausea with vomiting, unspecified (7) Hypertension Hypertension type: essential hypertension Qualified Code(s): I10 - Essential (primary) hypertension
[2020-01-14] MEDS: dilTIAZem HCL 120 MG CAPCR PO SCH (20:50)
[2020-01-14] MEDS ORDERED: SULFA/TRIMETH 400/80MG TAB PO SCH (21:00)
[2020-01-15 06:12] LABS: Calcium 8.2 mg/dl (8.5-10.1); Creatinine Clr Calc Pharmacy 24.8 ml/min; Est GFR (African American) 34.5; Est GFR (Non-African American) 29.8; Phosphorus 2.9 mg/dl (2.5-4.9); Potassium 4.6 mmol/L (3.5-5.1)
[2020-01-15] MEDS: INSULIN ASPART 100 UNITS/ML 3 ML PEN SC SCH ×4 (08:13→21:41)
[2020-01-15] MEDS: TRIAMCINOLONE ACET 0.1% CR 15 GM TUBE EXT SCH ×3 (08:15→21:08)
[2020-01-15] MEDS: CEROVITE ADV FORMULA TAB PO SCH (08:15)
[2020-01-15] MEDS: APIXABAN 2.5 MG TAB PO SCH ×2 (08:15→21:07)
[2020-01-15] MEDS: SUCRALFATE 1 GM/10 ML UDC PO SCH ×4 (08:16→21:06)
[2020-01-15] MEDS: METOPROLOL TARTRATE 50 MG TAB PO SCH ×2 (08:16→21:08)
[2020-01-15] MEDS: DICLOFENAC SOD 1% GEL 100 GM TUBE EXT SCH ×3 (08:17→21:08)
[2020-01-15] MEDS: CYANOCOBALAMIN 500 MCG TABLET (VITAMIN B-12) PO SCH (08:17)
[2020-01-15] MEDS: PANTOprazole 40 MG TAB PO SCH (08:17)
[2020-01-15] MEDS: SERTRALINE HCL 50 MG TABLET PO SCH (08:17)
[2020-01-15] MEDS: LACTOBACILLUS ACIDOPHILUS (FLORANEX) TAB PO SCH ×2 (09:44→13:15)
--- NOTE | 2020-01-15 16:04 | Hospitalist Progress Note ---
Date of Service January 15, 2020 Assessment & Plan (1) JESSICA (acute kidney injury): Cr up from 1.4 to 1.58 initially thought it could be due to Lasix, now suspect Bactrim Bactrim stopped on 01/14 hold ANNETTA inhibitor K is down to normal after fluids and Kayexalate repeat BMP in the morning (2) Hyperkalemia: given Kayexalate in the morning and 500cc fluid balance K down to below 5 today repeat tomorrow (3) Acute on chronic right-sided congestive heart failure: IMPROVED with diuresis. Cr up slightly at 1.5, continue to hold Lasix Echo with diastolic dysfunction, grade 2; preserved EF; and mild right-sided congestive heart failure. etiology of right-sided CHF is uncertain. no h/o PE or obvious SREE. no chronic lung disease. 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 daily weights. strict I's and O's. metoprolol tartrate, will change to Toprol prior to discharge good candidate for CHF clinic. severe hypoalbuminemia and proteinuria may be contributing to volume overload as well. plan to start on Lasix 20mg PO daily at time of discharge follow weights at [facility] (4) Pulmonary HTN: severe. etiology uncertain. no prior h/o PE or SREE. could be idiopathic. severe pulmonary HTN could have caused her right-sided CHF. saturations consistently > 90 on room air (5) Rash: suspect drug rxn to Unasyn. she had several doses of such and then the rash occurred. she had prior existing drug allergy to cephalosporins. did change to bactrim AM of 01/11/20 but bactrim is not culprit, Bactrim to be stopped due to worsening renal function placed Unasyn on allergy list. topical steroids TID for itching, hold further IV steroids (6) Bilateral pleural effusion: 2nd to decompensated CHF, +/- severe proteinuria/hypoalbuminemia O2 weaned off and lung exam improved. (7) Acute respiratory failure with hypoxia: 2nd to volume overload/CHF. resolved. off O2 for days (8) Diarrhea: Etiology? c diff toxin gene + but toxin negative -- thus, she is carrier. no Rx needed. stool cx -- Auromonas typically self limiting and diarrhea already better only treat if systemic symptoms will observe only diarrhea has been resolved follow. (9) Nausea & vomiting: chronic, present for months if not longer. Symptoms sound like severe reflux disease/regurgitation. CT abd/pelvis on 10/11/2019 without gastric pathology or small bowel pathology. Attempted barium swallow but could not be obtained. However, symptoms drastically improved with empiric PPI + carafate. Cannot r/o gastroparesis from longstanding DM. Cont PPI w/ carafate while admitted will discharge on PPI (10) Depression: cont SSRI. (11) UTI (urinary tract infection): e.coli resistant to several PO abx including augmentin. cephalosporin and quinolone allergy. had been receiving unasyn - stopped due to possible allergy and e.coli resistance. changed to po bactrim AM of 01/11/20. stopped Bactrim on 01/13 completed 7 days of treatment, no further antibiotics (12) Diabetes mellitus: long-standing. thus far controlled on supplemental novolog but hyperglycemia likely to occur w/ steroids. a1c 7.3%. (13) Hypertension: uncontrolled. consider changing metoprolol to coreg. hold ANNETTA due to rise in Cr this morning BP stable (14) PAF (paroxysmal atrial fibrillation): noted. is on BB and eliquis BID. cont both. stable, transfer to medical floor (15) Abnormal LFTs: 2nd to right-sided heart failure (ie - passive congestion of liver). liver us unremarkable. LFTs improved with diuresis. (16) Proteinuria: 4+ on u/a. likely diabetic nephropathy. (17) Hypoalbuminemia: 2nd diabetic nephropathy? due to chronic regurgitation? protein loss in diarrhea? combination? nutrition consult while here. added MVI. (18) Hypomagnesemia: replaced and resolved (19) Hypokalemia: replaced and resolved (20) DVT prophylaxis: eliquis 2.5mg BID progressing nicely back to [facility], plan to return once kidney function improving Admission and Anticipated Discharge Date Admission Date: January 09, 2020 Subjective patient feels quite well today, no acute issues she is eating well, no diarrhea, no abdominal pain rash is getting better she is still quite weak reviewed labs, Cr up slightly to 1.58 but K is down to 4.6 mag and phos normal called to provide updated to patient's family will move her to the medical floor Review of Systems Review of Systems: All systems reviewed & are unremarkable except as noted in Subjective Constitutional: + weakness; no fever Respiratory: no cough and no dyspnea Cardiovascular: no chest pain and no edema Gastrointestinal: no abdominal pain, no nausea, no vomiting, no constipation and no diarrhea/loose stools Integumentary: no rash Physical Exam Constitutional: well developed, + thin and + frail appearing; no acute distress Eyes: PERRL, conjunctivae normal, anicteric sclerae ENMT: external ear and nose normal, oropharynx normal Neck: trachea midline, no thyromegaly Respiratory: normal respiratory effort, lungs clear to auscultation Cardiovascular: Rate/Rhythm: regular rate and regular rhythm Heart Sounds: normal S1 and normal S2; no murmur Vessels: no JVD Extremities: normal capillary refill and + edema (+1 bilaterally) Gastrointestinal (Abdomen): normal bowel sounds, soft, nontender, no hepatosplenomegaly Musculoskeletal: Head/Neck/Chest: normocephalic, head atraumatic and neck supple Extremities: extremities normal to inspection and + abnormal strength (generalized weakness, cannot transfer); no cyanosis and no clubbing Skin: no rashes, warm and dry Neurologic: patellar DTR's 2+ bilat, sensation intact and PERRL, EOMI, accommodation nl, no face palsy, no dysarthria Psychiatric: A+Ox3, euthymic affect Lymphatic: no cervical or axillary lymphadenopathy Results & Data Results & Data ([facility]) Vital Signs (Past 12 Hours) Vital Signs Temp Pulse Pulse Resp BP BP Pulse Ox 01/15/20 15:09 37.2 C 54 L 18 174/64 H 96 01/15/20 11:47 36.6 C 56 L 20 158/76 H 93 01/15/20 08:05 36.3 C L 54 L 20 163/87 H 92 01/15/20 07:35 52 L PG Care Time/CCT Total # of Minutes Spent Total Time Spent with Patient: Total time spent is greater than 50% in coordination of care (as documented) at patient's floor/unit and/or counseling patient: Coding Level of Care Code 87030 Subseq Hosp Care Lvl 3 Diagnoses JESSICA (acute kidney injury) N17.9 Hyperkalemia E87.5 Acute on chronic right-sided congestive heart failure I50.813 Pulmonary HTN I27.20 Rash R21 Bilateral pleural effusion J90 Acute respiratory failure with hypoxia J96.01 Diarrhea R19.7 Diarrhea type: unspecified type Nausea & vomiting R11.2 Vomiting Intractability: unspecified Vomiting type: unspecified Depression F32.9 Active/Remission status: remission status unspecified Depression Type: major depressive disorder Major depression recurrence: single episode UTI (urinary tract infection) N30.00 Hematuria presence: without hematuria Urinary tract infection type: acute cystitis Diabetes mellitus E11.9 Diabetes mellitus complication status: without complication Diabetes mellitus fdc insulin use: without terminal carman use Diabetes mellitus type: type 2 Hypertension I10 Hypertension type: essential hypertension PAF (paroxysmal atrial fibrillation) I48.0 Abnormal LFTs R94.5 Proteinuria R80.9 Proteinuria type: unspecified Hypoalbuminemia E88.09 Hypomagnesemia E83.42 Hypokalemia E87.6 DVT prophylaxis Z29.9 (1) UTI (urinary tract infection) Hematuria presence: without hematuria Urinary tract infection type: acute cystitis Qualified Code(s): N30.00 - Acute cystitis without hematuria (2) Diabetes mellitus Diabetes mellitus complication status: without complication Diabetes mellitus fdc insulin use: without fdc use Diabetes mellitus type: type 2 Qualified Code(s): E11.9 - Type 2 diabetes mellitus without complications (3) Depression Active/Remission status: remission status unspecified Depression Type: major depressive disorder Major depression recurrence: single episode Qualified Code(s): F32.9 - Major depressive disorder, single episode, unspecified (4) Diarrhea Diarrhea type: unspecified type Qualified Code(s): R19.7 - Diarrhea, unspecified (5) Proteinuria Proteinuria type: unspecified Qualified Code(s): R80.9 - Proteinuria, unspecified (6) Nausea & vomiting Vomiting Intractability: unspecified Vomiting type: unspecified Qualified Code(s): R11.2 - Nausea with vomiting, unspecified (7) Hypertension Hypertension type: essential hypertension Qualified Code(s): I10 - Essential (primary) hypertension
[2020-01-15] MEDS: dilTIAZem HCL 120 MG CAPCR PO SCH (21:06)
[2020-01-16 06:14] LABS: BUN Creatinine Ratio 19.8 (10-20); Calcium 8.3 mg/dl (8.5-10.1); Est GFR (African American) 43.4; Est GFR (Non-African American) 37.5; Potassium 4.5 mmol/L (3.5-5.1)
[2020-01-16] MEDS: TRIAMCINOLONE ACET 0.1% CR 15 GM TUBE EXT SCH ×3 (08:00→21:00)
[2020-01-16] MEDS: INSULIN ASPART 100 UNITS/ML 3 ML PEN SC SCH ×4 (09:06→21:09)
[2020-01-16] MEDS: SUCRALFATE 1 GM/10 ML UDC PO SCH ×4 (09:07→21:05)
[2020-01-16] MEDS: APIXABAN 2.5 MG TAB PO SCH ×2 (09:08→20:59)
[2020-01-16] MEDS: METOPROLOL TARTRATE 50 MG TAB PO SCH ×2 (09:09→20:58)
[2020-01-16] MEDS: CEROVITE ADV FORMULA TAB PO SCH (09:09)
[2020-01-16] MEDS: PANTOprazole 40 MG TAB PO SCH (09:10)
[2020-01-16] MEDS: CYANOCOBALAMIN 500 MCG TABLET (VITAMIN B-12) PO SCH (09:10)
[2020-01-16] MEDS: DICLOFENAC SOD 1% GEL 100 GM TUBE EXT SCH ×3 (09:14→20:59)
--- NOTE | 2020-01-16 16:24 | Hospitalist Progress Note ---
Date of Service January 16, 2020 Assessment & Plan (1) JESSICA (acute kidney injury): suspect that it was due to combination of diuresis with Lasix and then being on Bactrim Cr catia to 1.4 after Lasix stopped, then catia to 1.5 so the Bactrim was stopped Cr improved to 1.2 today adequate urine output repeat BMP in the morning, if stable would be ok for discharge back to [facility] resume ANNETTA inhibitor on discharge recommend Lasix 20mg PO daily due to chronic heart failure (2) Hyperkalemia: given Kayexalate in the morning and 500cc fluid balance on 01/13 repeat K showed that it was stable now normal for two days, thus it is resolved (3) Acute on chronic right-sided congestive heart failure: IMPROVED with diuresis. Echo with diastolic dysfunction, grade 2; preserved EF; and mild right-sided congestive heart failure. etiology of right-sided CHF is uncertain. no h/o PE or obvious SREE. no chronic lung disease. 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 daily weights. strict I's and O's. Toprol 50mg PO daily, continue this on discharge good candidate for CHF clinic. severe hypoalbuminemia and proteinuria may be contributing to volume overload as well. plan to continue on Lasix 20mg PO daily at time of discharge, should be ready tomorrow (4) Pulmonary HTN: severe. etiology uncertain. no prior h/o PE or SREE. could be idiopathic. severe pulmonary HTN could have caused her right-sided CHF. stable on room air for several days (5) Rash: suspect drug rxn to Unasyn. she had several doses of such and then the rash occurred. she had prior existing drug allergy to cephalosporins. did change to bactrim AM of 01/11/20 but bactrim is not culprit, Bactrim to stopped due to worsening renal function placed Unasyn on allergy list. topical steroids TID for itching, hold further IV steroids (6) Bilateral pleural effusion: 2nd to decompensated CHF, +/- severe proteinuria/hypoalbuminemia O2 weaned off and lung exam improved. (7) Acute respiratory failure with hypoxia: 2nd to volume overload/CHF. resolved. off O2 for several days (8) Diarrhea: Etiology? c diff toxin gene + but toxin negative -- thus, she is carrier. no Rx needed. stool cx -- Auromonas typically self limiting and diarrhea already better only treat if systemic symptoms will observe only diarrhea has been improved since here. follow. (9) Nausea & vomiting: chronic, present for months if not longer. Symptoms sound like severe reflux disease/regurgitation. CT abd/pelvis on 10/11/2019 without gastric pathology or small bowel pathology. Attempted barium swallow but could not be obtained. However, symptoms drastically improved with empiric PPI + carafate. Cannot r/o gastroparesis from longstanding DM. plan to discharge on Protonix 40mg PO daily no need to continue carafate on discharge (10) Depression: cont SSRI. (11) UTI (urinary tract infection): e.coli resistant to several PO abx including augmentin. cephalosporin and quinolone allergy. had been receiving unasyn - stopped due to possible allergy and e.coli resistance. changed to po bactrim AM of 01/11/20. completed 7 days of treatment, no further antibiotics (12) Diabetes mellitus: long-standing. thus far controlled on supplemental novolog but hyperglycemia likely to occur w/ steroids. a1c 7.3%. (13) Hypertension: uncontrolled. consider changing metoprolol to coreg. hold ANNETTA due to rise in Cr this morning, but can resume on discharge BP stable (14) PAF (paroxysmal atrial fibrillation): noted. is on BB and eliquis BID. cont both. (15) Abnormal LFTs: 2nd to right-sided heart failure (ie - passive congestion of liver). liver us unremarkable. LFTs improved with diuresis. (16) Proteinuria: 4+ on u/a. likely diabetic nephropathy. (17) Hypoalbuminemia: 2nd diabetic nephropathy? due to chronic regurgitation? protein loss in diarrhea? combination? nutrition consult while here. added MVI. (18) Hypomagnesemia: replaced and resolved (19) Hypokalemia: resolved (20) DVT prophylaxis: eliquis 2.5mg BID progressing nicely Plan: discharge tomorrow to [facility] as long as Cr remains stable new / changed medications Toprol 50mg daily Protonix 40mg daily Lasix 20mg daily Admission and Anticipated Discharge Date Admission Date: January 09, 2020 Subjective patient feeling really good rash is gone, tolerating diet without any nausea or vomiting no diarrhea labs reviewed, Cr improved to 1.2, confirming that it was likely the Bactrim and Lasix combination updated her niece Suha Penny at the bedside discussed going to [facility] tomorrow, she is in agreement Review of Systems Review of Systems: All systems reviewed & are unremarkable except as noted in Subjective Constitutional: + weakness; no fever and no sweats Respiratory: no cough and no dyspnea Cardiovascular: no chest pain and no edema Gastrointestinal: no abdominal pain, no nausea, no vomiting, no constipation and no diarrhea/loose stools Genitourinary: no dysuria Physical Exam Constitutional: well developed, + thin and + frail appearing; no acute distress Eyes: PERRL, conjunctivae normal, anicteric sclerae ENMT: external ear and nose normal, oropharynx normal Neck: trachea midline, no thyromegaly Respiratory: normal respiratory effort, lungs clear to auscultation Cardiovascular: Rate/Rhythm: regular rate and regular rhythm Heart Sounds: normal S1 and normal S2; no murmur Vessels: no JVD Extremities: normal capillary refill; no edema Gastrointestinal (Abdomen): normal bowel sounds, soft, nontender, no hepatosplenomegaly Musculoskeletal: Head/Neck/Chest: normocephalic, head atraumatic and neck supple Extremities: extremities normal to inspection and + abnormal strength (generalized weakness, cannot transfer); no cyanosis and no clubbing Skin: no rashes, warm and dry Neurologic: patellar DTR's 2+ bilat, sensation intact and PERRL, EOMI, accommodation nl, no face palsy, no dysarthria Psychiatric: A+Ox3, euthymic affect Lymphatic: no cervical or axillary lymphadenopathy Results & Data Results & Data ([facility]) Vital Signs (Past 12 Hours) Vital Signs Temp Pulse Resp BP Pulse Ox 01/16/20 15:21 36.2 C L 56 L 17 160/77 H 96 01/16/20 07:22 36.4 C L 56 L 16 155/49 H 93 Laboratory Results Laboratory Results - last 24 hr 01/15/20 01/15/20 01/16/20 17:30 20:42 05:13 Sodium 136 Potassium 4.5 Chloride 101 Carbon Dioxide 30 Anion Gap 5.0 BUN 26 H Creatinine 1.29 H Est Cr Clr Drug Dosing 30.0 Est GFR ( Amer) 43.4 Est GFR (Non-Af Amer) 37.5 BUN/Creatinine Ratio 19.8 Glucose 111 H POC Glucose 145 H 184 H Calcium 8.3 L 01/16/20 01/16/20 08:13 12:14 Sodium Potassium Chloride Carbon Dioxide Anion Gap BUN Creatinine Est Cr Clr Drug Dosing Est GFR ( Amer) Est GFR (Non-Af Amer) BUN/Creatinine Ratio Glucose POC Glucose 119 H 134 H Calcium Medications Administered Current Inpatient Medications Acetaminophen (Acetaminophen 325 Mg Tab) 650 mg PO Q4 PRN PRN Reason: fever/pain Stop: 02/08/20 23:50 Last Admin: 01/14/20 19:51 Dose: 650 mg Documented by: Apixaban (Apixaban 2.5 Mg Tab) 2.5 mg PO BID JENNIFER Stop: 02/09/20 08:59 Last Admin: 01/16/20 09:08 Dose: 2.5 mg Documented by: Cyanocobalamin (Cyanocobalamin 500 Mcg Tablet (Vitamin B-12)) 1,000 mcg PO DAILY JENNIFER Stop: 02/09/20 08:59 Last Admin: 01/16/20 09:10 Dose: 1,000 mcg Documented by: Dextrose (Dextrose 50% 50 Ml Syringe) 25 - 50 ml IV UD PRN; Protocol PRN Reason: Hypoglycemia Protocol Stop: 02/08/20 23:50 Diclofenac Sodium (Diclofenac Sod 1% Gel 100 Gm Tube) 1 gm EXT TID JENNIFER Stop: 02/09/20 08:59 Last Admin: 01/16/20 13:52 Dose: Not Given Documented by: Diltiazem HCl (Diltiazem Hcl 120 Mg Capcr) 120 mg PO QPM JENNIFER Stop: 02/08/20 23:50 Last Admin: 01/15/20 21:06 Dose: 120 mg Documented by: Glucagon (Glucagon For Inj 1 Mg Vial) 1 mg SQ UD PRN; Protocol PRN Reason: Hypoglycemia Protocol Stop: 02/08/20 23:50 Glucose (Glucose 10 Tabs/Tube) 4 - 8 tabs PO UD PRN; Protocol PRN Reason: Hypoglycemia Protocol Stop: 02/08/20 23:50 Glucose (Glucose 40% Gel 15 Gm Tube) 15 - 30 gm PO UD PRN; Protocol PRN Reason: Hypoglycemia Protocol Stop: 02/08/20 23:50 Insulin Aspart (Insulin Aspart 100 Units/Ml 3 Ml Pen) 0 units SC ACHS JENNIFER Stop: 02/09/20 00:14 Last Admin: 01/16/20 13:53 Dose: 3 units Documented by: Lisinopril (Lisinopril 20 Mg Tab) 20 mg PO DAILY [facility] Stop: 02/11/20 08:59 Last Admin: 01/12/20 11:42 Dose: 10 mg Documented by: Metoprolol Tartrate (Metoprolol Tartrate 50 Mg Tab) 50 mg PO BID [facility] Stop: 02/09/20 08:59 Last Admin: 01/16/20 09:09 Dose: Not Given Documented by: Miscellaneous (Carbohydrates For Hypoglycemia ) 15 - 30 gm PO UD PRN PRN Reason: Hypoglycemia Protocol Stop: 02/08/20 23:50 Multivitamins/Minerals (Cerovite Adv Formula Tab) [facility] [place] Stop: 02/10/20 08:59 Last Admin: 01/16/20 09:09 Dose: 1 tab Documented by: Ondansetron HCl (Ondansetron Inj 2 Mg/Ml 2 Ml Vial) 4 mg IV Q6H PRN PRN Reason: Nausea Stop: 02/08/20 23:50 Pantoprazole Sodium (Pantoprazole 40 Mg Tab) 40 mg PO QAM [facility] Stop: 02/09/20 15:59 Last Admin: 01/16/20 09:10 Dose: 40 mg Documented by: Sertraline HCl (Sertraline Hcl 50 Mg Tablet) 25 mg PO QAM [facility] Stop: 02/09/20 08:59 Last Admin: 01/15/20 08:17 Dose: 25 mg Documented by: Sucralfate (Sucralfate 1 Gm/10 Ml Udc) 1 gm PO QID [facility] Stop: 02/09/20 16:59 Last Admin: 01/16/20 09:07 Dose: 1 gm Documented by: Triamcinolone Acetonide (Triamcinolone Acet 0.1% Cr 15 Gm Tube) 1 appln EXT TID [facility] Stop: 02/10/20 18:44 Last Admin: 01/15/20 21:08 Dose: 1 appln Documented by: PG Care Time/CCT Total # of Minutes Spent Total Time Spent with Patient: Total time spent is greater than 50% in coordination of care (as documented) at patient's floor/unit and/or counseling patient: Coding Level of Care Code 48997 Subseq Hosp Care Lvl 3 Diagnoses JESSICA (acute kidney injury) N17.9 Hyperkalemia E87.5 Acute on chronic right-sided congestive heart failure I50.813 Pulmonary HTN I27.20 Rash R21 Bilateral pleural effusion J90 Acute respiratory failure with hypoxia J96.01 Diarrhea R19.7 Diarrhea type: unspecified type Nausea & vomiting R11.2 Vomiting Intractability: unspecified Vomiting type: unspecified Depression F32.9 Active/Remission status: remission status unspecified Depression Type: major depressive disorder Major depression recurrence: single episode UTI (urinary tract infection) N30.00 Hematuria presence: without hematuria Urinary tract infection type: acute cystitis Diabetes mellitus E11.9 Diabetes mellitus complication status: without complication Diabetes mellitus terminal clerk insulin use: without usp use Diabetes mellitus type: type 2 Hypertension I10 Hypertension type: essential hypertension PAF (paroxysmal atrial fibrillation) I48.0 Abnormal LFTs R94.5 Proteinuria R80.9 Proteinuria type: unspecified Hypoalbuminemia E88.09 Hypomagnesemia E83.42 Hypokalemia E87.6 DVT prophylaxis Z29.9 (1) UTI (urinary tract infection) Hematuria presence: without hematuria Urinary tract infection type: acute cystitis Qualified Code(s): N30.00 - Acute cystitis without hematuria (2) Diabetes mellitus Diabetes mellitus complication status: without complication Diabetes mellitus terminal clerk insulin use: without usp use Diabetes mellitus type: type 2 Qualified Code(s): E11.9 - Type 2 diabetes mellitus without complications (3) Depression Active/Remission status: remission status unspecified Depression Type: major depressive disorder Major depression recurrence: single episode Qualified Code(s): F32.9 - Major depressive disorder, single episode, unspecified (4) Diarrhea Diarrhea type: unspecified type Qualified Code(s): R19.7 - Diarrhea, unspecified (5) Proteinuria Proteinuria type: unspecified Qualified Code(s): R80.9 - Proteinuria, unspecified (6) Nausea & vomiting Vomiting Intractability: unspecified Vomiting type: unspecified Qualified Code(s): R11.2 - Nausea with vomiting, unspecified (7) Hypertension Hypertension type: essential hypertension Qualified Code(s): I10 - Essential (primary) hypertension
[2020-01-16] MEDS: SERTRALINE HCL 50 MG TABLET PO SCH (17:43)
[2020-01-16] MEDS: dilTIAZem HCL 120 MG CAPCR PO SCH (20:59)
[2020-01-17 06:40] LABS: BUN Creatinine Ratio 16.5 (10-20); Calcium 8.5 mg/dl (8.5-10.1); Creatinine Clr Calc Pharmacy 32.3 ml/min; Est GFR (African American) 47.4; Est GFR (Non-African American) 40.9; Potassium 4.5 mmol/L (3.5-5.1)
[2020-01-17] MEDS: APIXABAN 2.5 MG TAB PO SCH ×2 (07:23→21:51)
[2020-01-17] MEDS: CYANOCOBALAMIN 500 MCG TABLET (VITAMIN B-12) PO SCH (07:23)
[2020-01-17] MEDS: SERTRALINE HCL 50 MG TABLET PO SCH (07:23)
[2020-01-17] MEDS: CEROVITE ADV FORMULA TAB PO SCH (07:24)
[2020-01-17] MEDS: PANTOprazole 40 MG TAB PO SCH (07:24)
[2020-01-17] MEDS: METOPROLOL SUCC 50MG EXT REL TAB PO SCH (07:24)
[2020-01-17] MEDS: SUCRALFATE 1 GM/10 ML UDC PO SCH ×4 (07:25→21:50)
[2020-01-17] MEDS: TRIAMCINOLONE ACET 0.1% CR 15 GM TUBE EXT SCH ×3 (07:25→21:56)
[2020-01-17] MEDS: DICLOFENAC SOD 1% GEL 100 GM TUBE EXT SCH ×3 (07:25→21:56)
--- NOTE | 2020-01-17 09:41 | Hospitalist Progress Note ---
Date of Service January 17, 2020 Assessment & Plan (1) JESSICA (acute kidney injury): suspect that it was due to combination of diuresis with Lasix and then being on Bactrim Cr improved adequate urine output Will need negative cover testing prior to discharge back to [facility] resume ANNETTA inhibitor on discharge recommend Lasix 20mg PO daily due to chronic heart failure (2) Hyperkalemia: given Kayexalate repeat K showed that it was stable resolved (3) Acute on chronic right-sided congestive heart failure: IMPROVED with diuresis. Echo with diastolic dysfunction, grade 2; preserved EF; and mild right-sided congestive heart failure. etiology of right-sided CHF is uncertain. no h/o PE or obvious SREE. no chronic lung disease. 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 Toprol 50mg PO daily, plus Lasix 20 mg, continue these on discharge good candidate for CHF clinic. (4) Pulmonary HTN: severe.,etiology uncertain. no prior h/o PE or SREE.,could be idiopathic. severe pulmonary HTN caused her right-sided CHF. stable on room air for several days (5) Rash: suspect drug rxn to Unasyn. she had several doses of such and then the rash occurred. she had prior existing drug allergy to cephalosporins. did change to bactrim AM of 01/11/20 but bactrim is not culprit, Bactrim to be stopped due to worsening renal function placed Unasyn on allergy list. topical steroids TID for itching, rash is improved/resolved, hold further IV steroids (6) Bilateral pleural effusion: 2nd to decompensated right-sided systolic CHF, +/- severe proteinuria/hypoalbuminemia and pulmonary hypertension O2 weaned off and lung exam improved. (7) Acute respiratory failure with hypoxia: 2nd to volume overload/CHF. resolved. off O2 for several days (8) Diarrhea: c diff toxin gene + but toxin negative -- thus, she is carrier. no Rx needed. stool cx -- Auromonas, typically self limiting and diarrhea resolved . (9) Nausea & vomiting: chronic, present for months if not longer. Symptoms sound like severe reflux disease/regurgitation. CT abd/pelvis on 10/11/2019 without gastric pathology or small bowel pathology. Attempted barium swallow but could not be obtained. However, symptoms drastically improved with empiric PPI + carafate. Cannot r/o gastroparesis from longstanding DM. plan to discharge on Protonix 40mg PO daily no need to continue carafate on discharge (10) Depression: cont SSRI. (11) UTI (urinary tract infection): e.coli resistant to several PO abx including augmentin. completed 7 days of treatment, no further antibiotics (12) Diabetes mellitus: long-standing. thus far controlled on supplemental novolog but hyperglycemia likely to occur w/ steroids. a1c 7.3%. (13) Hypertension: uncontrolled. metoprolol plus Lasix Consider resuming ANNETTA inhibitor at time of discharge (14) PAF (paroxysmal atrial fibrillation): noted. is on BB and eliquis BID. cont both. (15) Abnormal LFTs: 2nd to right-sided heart failure (ie - passive congestion of liver). liver us unremarkable. LFTs improved with diuresis. (16) Proteinuria: 4+ on u/a. likely diabetic nephropathy. (17) DVT prophylaxis: eliquis 2.5mg BID Plan: discharge to [facility] when he will cannot take the patient till Friday will have to have a negative cover test with 7 days of discharge last cover test was 01/08 new / changed medications Toprol 50mg daily Protonix 40mg daily Lasix 20mg daily Admission and Anticipated Discharge Date Admission Date: January 09, 2020 Subjective Patient seen in the company of her [employer] who is a healthcare provider no additional issues were brought up she was eating Friday she still has significant lower extremity edema but refuses to have stockings or compression or to elevate legs more than she is currently done Review of Systems Review of Systems: Mild distress and fatigue no headache, blurry or double vision no speech or swallowing issues no chest pain, pressure or palpitations no shortness of breath, cough or wheezes no abdominal pain, nausea or vomiting, diarrhea or constipation no dysuria, hematuria or frequency no focal joint pain does have 1-2+ bilateral lower extremity swelling no back pain, CVA tenderness or radicular pain no bruising, bleeding or rashes no focal signs of weakness or numbness or altered sensation no complaints or anxiety or depression. Physical Exam Physical Exam: The patient appeared well nourished and normally developed. Vital signs as documented. Head exam is normocephalic atraumatic no scleral icterus Neck is without JVD, thyromegaly, or carotid bruits. Lungs are clear to auscultation, but had rales at the base which could be atelectasis Cardiac exam, Rhythm is regular.. Systolic murmur was heard Abdominal exam reveals normal bowel sounds, soft non tender, no masses Extremities are 1+ bilateral edematous and both pedal pulses are normal. Neurologic exam is alert and oriented x2, no focal loss of strength or sensation Skin is without bruises or rashes or changes of venous stasis are noted to her lower extremities Psychologically is without concerns for anxiety or depression. Results & Data Results & Data ([facility]) Vital Signs (Past 12 Hours) Vital Signs Temp Pulse Resp BP Pulse Ox 01/17/20 07:02 98.6 F 58 L 16 192/66 H 94 01/16/20 23:54 98.6 F 53 L 16 165/56 H 92 PG Care Time/CCT Total # of Minutes Spent Total Time Spent with Patient: Total time spent is greater than 50% in coordination of care (as documented) at patient's floor/unit and/or counseling patient: Coding Level of Care Code 17018 Subseq Hosp Care Lvl 3 Diagnoses JESSICA (acute kidney injury) N17.9 Hyperkalemia E87.5 Acute on chronic right-sided congestive heart failure I50.813 Pulmonary HTN I27.20 Rash R21 Bilateral pleural effusion J90 Acute respiratory failure with hypoxia J96.01 Diarrhea R19.7 Diarrhea type: unspecified type Nausea & vomiting R11.2 Vomiting Intractability: unspecified Vomiting type: unspecified Depression F32.9 Active/Remission status: remission status unspecified Depression Type: major depressive disorder Major depression recurrence: single episode UTI (urinary tract infection) N30.00 Hematuria presence: without hematuria Urinary tract infection type: acute cystitis Diabetes mellitus E11.9 Diabetes mellitus complication status: without complication Diabetes mellitus custodial insulin use: without intermediate manager use Diabetes mellitus type: type 2 Hypertension I10 Hypertension type: essential hypertension PAF (paroxysmal atrial fibrillation) I48.0 Abnormal LFTs R94.5 Proteinuria R80.9 Proteinuria type: unspecified DVT prophylaxis Z29.9 (1) UTI (urinary tract infection) Hematuria presence: without hematuria Urinary tract infection type: acute cystitis Qualified Code(s): N30.00 - Acute cystitis without hematuria (2) Diabetes mellitus Diabetes mellitus complication status: without complication Diabetes mellitus custodial insulin use: without custodial use Diabetes mellitus type: type 2 Qualified Code(s): E11.9 - Type 2 diabetes mellitus without complications (3) Depression Active/Remission status: remission status unspecified Depression Type: major depressive disorder Major depression recurrence: single episode Qualified Code(s): F32.9 - Major depressive disorder, single episode, unspecified (4) Diarrhea Diarrhea type: unspecified type Qualified Code(s): R19.7 - Diarrhea, unspecified (5) Proteinuria Proteinuria type: unspecified Qualified Code(s): R80.9 - Proteinuria, unspecified (6) Nausea & vomiting Vomiting Intractability: unspecified Vomiting type: unspecified Qualified Code(s): R11.2 - Nausea with vomiting, unspecified (7) Hypertension Hypertension type: essential hypertension Qualified Code(s): I10 - Essential (primary) hypertension
[2020-01-17] MEDS: INSULIN ASPART 100 UNITS/ML 3 ML PEN SC SCH ×4 (09:47→21:57)
[2020-01-17] MEDS: dilTIAZem HCL 120 MG CAPCR PO SCH (21:55)
[2020-01-18] MEDS: SERTRALINE HCL 50 MG TABLET PO SCH (07:33)
[2020-01-18] MEDS: CYANOCOBALAMIN 500 MCG TABLET (VITAMIN B-12) PO SCH (07:33)
[2020-01-18] MEDS: SUCRALFATE 1 GM/10 ML UDC PO SCH ×2 (07:33→12:24)
[2020-01-18] MEDS: METOPROLOL SUCC 50MG EXT REL TAB PO SCH (07:33)
[2020-01-18] MEDS: CEROVITE ADV FORMULA TAB PO SCH (07:33)
[2020-01-18] MEDS: PANTOprazole 40 MG TAB PO SCH (07:34)
[2020-01-18] MEDS: APIXABAN 2.5 MG TAB PO SCH (07:34)
[2020-01-18] MEDS: TRIAMCINOLONE ACET 0.1% CR 15 GM TUBE EXT SCH ×2 (07:34→12:25)
[2020-01-18] MEDS: DICLOFENAC SOD 1% GEL 100 GM TUBE EXT SCH ×2 (07:42→12:25)
[2020-01-18 08:11] LABS: Folate (Folic Acid) 7.73 ng/ml (>5.38)
[2020-01-18] MEDS: INSULIN ASPART 100 UNITS/ML 3 ML PEN SC SCH ×2 (09:08→13:00)
--- NOTE | 2020-01-18 13:59 | Discharge Summary ---
Date of Service January 18, 2020 Admission HPI Per Admitting Provider Rachell Da Silva is an 84-year-old female presenting from her residential with complaints of persistent nausea, vomiting and diarrhea which is been ongoing for the last few months. Patient becomes nauseous after meals and typically vomits at least once per day. Nonbloody/nonbilious. She also reports diarrhea, occasional episodes of fecal incontinence. Patient was to see Dr. Lake for evaluation for possible cholecystectomy. Patient was admitted in October 2019 for acute diverticulitis for which she was treated with Cipro and Flagyl. Additionally, she is complaining of progressive weakness and fatigue over the last 2 weeks, shortness of breath x1 to 2 days as well as occasional substernal chest pain and worsening bilateral lower extremity edema. She denies fever/chills/cough/dysuria. No additional complaints at this time. On arrival to the ER patient afebrile, hypertensive and bradycardic saturating 88% on room air. ER course: Zosyn 4.5 g, Lasix 40 mg Principal Diagnosis 1)acute on chronic right sided systolic heart failure 2)pulmonary hypertension 3)acute respiratory failure with hypoxia resolved 4)acute kidney injury resolved 5)drug rash resolved Discharge Exam The patient appeared well Vital signs as documented. Lungs are clear to auscultation and appear unlabored Cardiac exam, Rhythm is regular.. Systolic ejection murmur is heard Abdominal exam reveals normal bowel sounds, soft non tender, no masses Extremities are with 1+ edema bilaterally Neurologic exam is alert and oriented, x2, no focal loss of strength or sensation Skin is without bruises or rashes Psychologically is with concerned for mild dementia Discharge Data Allergies Allergy/AdvReac Type Severity Reaction Status Date / Time ampicillin [From Unasyn] Allergy Intermediate Rash Verified 01/12/20 16:23 sulbactam [From Unasyn] Allergy Intermediate Rash Verified 01/12/20 16:23 Cephalosporins Allergy Rash Verified 01/09/20 21:57 ciprofloxacin [From Cipro] Allergy Rash Verified 01/09/20 21:57 Consultations 01/09/20 21:48 ED Decision to Admit Stat Ordered Studies 01/09/20 20:11 CT angio chest PE protocol Urgent 01/10/20 23:51 US liver Routine Hospital Course (1) JESSICA (acute kidney injury): suspect that it was due to combination of diuresis with Lasix and then being on Bactrim negative covid testing prior to discharge back to [facility] resume ANNETTA inhibitor on discharge recommend increase of Lasix 20mg PO daily due to pulmonary htn and chronic right heart failure (2) Hyperkalemia: given Kayexalate repeat K showed that it was stable resolved (3) Acute on chronic right-sided congestive heart failure: IMPROVED with diuresis. Echo with diastolic dysfunction, grade 2; preserved EF; and mild right-sided congestive heart failure. etiology of right-sided CHF is uncertain. no h/o PE or obvious SREE. no chronic lung disease. 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 Toprol 50mg PO daily, plus Lasix 20 mg, continue these on discharge good candidate for CHF clinic. (4) Pulmonary HTN: severe.,etiology uncertain. no prior h/o PE or SREE.,could be idiopathic. severe pulmonary HTN caused her right-sided CHF. stable on room air for several days (5) Rash: suspect drug rxn to Unasyn. she had several doses of such and then the rash occurred. she had prior existing drug allergy to cephalosporins. did change to bactrim AM of 01/11/20 but bactrim is not culprit, Bactrim to be stopped due to worsening renal function placed Unasyn on allergy list. resolved (6) Bilateral pleural effusion: 2nd to decompensated right-sided systolic CHF, +/- severe proteinuria/hypoalbuminemia and pulmonary hypertension O2 weaned off and lung exam improved. (7) Acute respiratory failure with hypoxia: 2nd to volume overload/CHF. resolved. off O2 for several days (8) Diarrhea: c diff toxin gene + but toxin negative -- thus, she is carrier. no Rx needed. stool cx -- Auromonas, typically self limiting and diarrhea resolved . (9) Nausea & vomiting: chronic, present for months if not longer., mostly resolved was eating without issue Symptoms sound like severe reflux disease/regurgitation. CT abd/pelvis on 10/11/2019 without gastric pathology or small bowel pathology. Attempted barium swallow but could not be obtained. However, symptoms drastically improved with empiric PPI + carafate. Cannot r/o gastroparesis from longstanding DM. plan to discharge on Protonix 40mg PO daily (10) Depression: cont SSRI. (11) UTI (urinary tract infection): e.coli resistant to several PO abx including augmentin. completed 7 days of treatment, no further antibiotics (12) Diabetes mellitus: long-standing. a1c 7.3%. (13) Hypertension: controlled. metoprolol plus Lasix resuming ANNETTA inhibitor at time of discharge (14) PAF (paroxysmal atrial fibrillation): noted. is on BB and eliquis BID. cont both. (15) Abnormal LFTs: 2nd to right-sided heart failure (ie - passive congestion of liver). liver us unremarkable. LFTs improved with diuresis. (16) Proteinuria: 4+ on u/a. likely diabetic nephropathy. (17) DVT prophylaxis: eliquis 2.5mg BID changed medications Toprol 50mg daily Protonix 40mg daily Lasix 20mg daily Total Time Total Time Spent Total Time Spent (In Minutes): It required greater than 30 minutes to prepare this patient for discharge Discharge Plan Discharge Items Patient Disposition: Personal Usp Reason For Visit: WEAKNESS, FATIGUE Discharge Diagnosis: pulmonary hypertension peripheral edema jessica resolved Activity: Resume your previous activity Non-emergency contact: Primary Care Provider Call non-emergency contact if: you have any medication questions and your symptoms worsen Follow-up/Referrals: Jacobo Hutton [Primary Care Provider] - Diet: Low Sodium (2gm) Addtl Attending Provider Instructions: please watch this patients weight, and salt intake she does not have formal heart failure but does have pulmonary hypertension her systolic blood pressure tends to run high, but the diastolic is normal, so we have not pushed further antihypertensive treatment her B12, Vit D and folate are normal Pending Studies at Discharge: No Stand-Alone Forms: My [employer], Smoking Cessation Skilled Items Patient informed of condition?: Yes DNR: Yes Discharge Level of Care: Other Communicable Disease: No Discharge Prognosis: Stable Lines: None Urinary Catheter: No Medications and DC Order Prescriptions: New metoprolol succinate 50 mg Tablet Extended Release 24 Hr 50 mg PO QAM Qty: 30 RF: 0 pantoprazole 40 mg Tablet,Delayed Release (Dr/Ec) 40 mg PO QAM Qty: 30 RF: 0 Continued ketoconazole [Nizoral] 2 % shampoo 1 applic TOPICAL BID RF: 0 cyanocobalamin (vitamin B-12) 1,000 mcg tablet 1,000 mcg PO DAILY RF: 0 potassium chloride [Klor-Con 10] 10 mEq tablet extended release 20 meq PO DAILY RF: 0 sertraline [Zoloft] 25 mg tablet 25 mg PO QAM RF: 0 diltiazem HCl [Cardizem CD] 120 mg capsule,extended release 24hr 120 mg PO QPM RF: 0 tolnaftate 1 % Powder 1 applic TOPICAL HS RF: 0 ergocalciferol (vitamin D2) [Vitamin D2] 1,250 mcg (50,000 unit) Capsule 1,250 mcg PO 2XWK RF: 0 mineral oil-isopropyl myristat Lotion 1 applic TOPICAL AMHS RF: 0 soap Shampoo 1 ea TOPICAL HS RF: 0 diclofenac sodium [Voltaren] 1 % gel 1 ea TOPICAL TID RF: 0 Eliquis 2.5 mg tablet 2.5 mg PO BID RF: 0 Liquid Protein Supp 30 ml PO BID RF: 0 acetaminophen [Tylenol] 325 mg Tablet 650 mg PO Q4 PRN (Reason: fever/pain) RF: 0 magnesium hydroxide [Milk of Magnesia] 400 mg/5 mL Suspension 30 ml PO DAILY PRN (Reason: .no bm 3 days) RF: 0 Changed lisinopril 10 mg Tablet 20 mg PO DAILY Qty: 0 RF: 0 Discontinued metoprolol tartrate [Lopressor] 50 mg tablet 50 mg PO BID RF: 0 Discharge Orders: Discharge Order (Routine); Ordered 01/18/20 Ordered By: Terry Danielle/Other Patient Handouts: Diabetes and Heart Disease, Managing Type 2 Diabetes, Coping with Heart Failure Admission Data Admit Date/Time: 01/09/20 22:38 Attending Provider: Terry Mcginnis Admit Provider: Soraya Luo Primary Care Provider: Jacobo Hutton Other Providers: Soraya Luo Other Interventions: Discharge Summary Assessment (RN) Last Done: 01/18/20 12:01 Coding Level of Care Code D/C Day Management >30 mins Diagnoses JESSICA (acute kidney injury) N17.9 Hyperkalemia E87.5 Acute on chronic right-sided congestive heart failure I50.813 Pulmonary HTN I27.20 Rash R21 Bilateral pleural effusion J90 Acute respiratory failure with hypoxia J96.01 Diarrhea R19.7 Diarrhea type: unspecified type Nausea & vomiting R11.2 Vomiting type: unspecified Vomiting Intractability: unspecified Depression F32.9 Depression Type: major depressive disorder Major depression recurrence: single episode Active/Remission status: remission status unspecified UTI (urinary tract infection) N30.00 Urinary tract infection type: acute cystitis Hematuria presence: without hematuria Diabetes mellitus E11.9 Diabetes mellitus type: type 2 Diabetes mellitus senior living insulin use: without senior living use Diabetes mellitus complication status: without complication Hypertension I10 Hypertension type: essential hypertension PAF (paroxysmal atrial fibrillation) I48.0 Abnormal LFTs R94.5 Proteinuria R80.9 Proteinuria type: unspecified DVT prophylaxis Z29.9
== END 2020-01-18 14:00 | disposition home or self-care (01) | DRG 291 ==
LOC: ED 18:54 → 2S 22:38 → SUATTDRO 22:38 → 2S 23:20 → 3W 01-15 14:47

== ENCOUNTER 2021-04-03 20:13 | Inpatient (IN) ==
[2021-04-03] MEDS ORDERED: dilTIAZem HCl 5 MG/ML 5 ML VIAL IV STA ×2 (20:59→22:49)
--- NOTE | 2021-04-03 20:59 | Emergency Department Note ---
History of Present Illness General Chief complaint: Rectal Bleed Stated complaint: Rectal Bleed Time Seen by Provider: 04/03/21 20:46 History of Present Illness 85-year-old female presenting to the emergency department with a chief complaint of rectal bleeding. [facility] She states that her bleeding started on Friday. She reports that was grossly bloody. She has had multiple episodes of this since its onset. Denies other symptoms like lightheadedness, dizziness or shortness of breath. She does have a history of paroxysmal A. fib. She is currently in A. fib. She states that she is currently not on any anticoagulants. No other complaints at this time. Nothing makes her symptoms better or worse. She does report a history of diverticulosis. Home Medications Medication Instructions Recorded Confirmed Type acetaminophen 325 mg tablet 650 mg PO Q4 PRN MDD 3 GRAMS/24 01/09/20 04/03/21 History (Tylenol) HOURS. cyanocobalamin (vitamin B-12) 1,000 mcg PO QAM 01/09/20 04/03/21 History 1,000 mcg tablet magnesium hydroxide 400 mg/5 mL 30 ml PO DAILY PRN 01/09/20 04/03/21 History oral suspension (Milk of Magnesia) sertraline 25 mg tablet (Zoloft) 25 mg PO QAM 01/09/20 04/03/21 History tolnaftate 1 % topical powder 1 applic TOPICAL HS 01/09/20 04/03/21 History amlodipine 2.5 mg tablet 2.5 mg PO TID PRN 04/03/21 04/03/21 History amlodipine 5 mg tablet 5 mg PO QAM 04/03/21 04/03/21 History ascorbic acid (vitamin C) 500 mg 500 mg PO BID 04/03/21 04/03/21 History tablet (Vitamin C) atorvastatin 10 mg tablet 10 mg PO HS 04/03/21 04/03/21 History cholecalciferol (vitamin D3) 125 125 mcg PO QDL 04/03/21 04/03/21 History mcg (5,000 unit) tablet (Vitamin D3) dapagliflozin 5 mg tablet (Farxiga) 5 mg PO QAM 04/03/21 04/03/21 History diclofenac sodium 1 % topical gel 2 g TOPICAL TID 04/03/21 04/03/21 History ketoconazole 1 % shampoo (Nizoral 1 applic TOPICAL 2XWK 04/03/21 04/03/21 History A-D) ketoconazole 2 % topical cream 1 applic TOPICAL HS 04/03/21 04/03/21 History lisinopril 20 mg tablet 20 mg PO QAM 04/03/21 04/03/21 History melatonin 5 mg tablet 5 mg PO HS 04/03/21 04/03/21 History metoprolol succinate 25 mg 25 mg PO BID 04/03/21 04/03/21 History tablet,extended release 24 hr mirabegron 25 mg tablet,extended 25 mg PO QDD 04/03/21 04/03/21 History release 24 hr (Myrbetriq) pantoprazole 20 mg tablet,delayed 20 mg PO QAM 04/03/21 04/03/21 History release soap 1 ea TOPICAL HS 04/03/21 04/03/21 History white petrolatum-mineral oil 1 applic TOPICAL HS 04/03/21 04/03/21 History topical cream (Dermacerin) Allergies Allergy/AdvReac Type Severity Reaction Status Date / Time ampicillin [From Unasyn] Allergy Intermediate Rash Verified 04/03/21 20:44 Cephalosporins Allergy Intermediate Rash Verified 04/03/21 20:44 ciprofloxacin [From Cipro] Allergy Intermediate Rash Verified 04/03/21 20:44 sulbactam [From Unasyn] Allergy Intermediate Rash Verified 04/03/21 20:44 Past Med/Surg History Medical History Atrial fibrillation Depression Diabetes mellitus Hypertension Surgical History History of ankle surgery History of knee surgery Family History Other Family history non-contributory Social History Smoking Status: Never smoker Second Hand Exposure: No; Hx Alcohol Use: No Hx Substance Use: No Preferred Language: Belarusian Communication Ability: Effective Doorshaker Required: No Beliefs That Will Affect Care: None Current Living Situation: Longterm Feels Safe at Home: Yes Assistive Devices: Walker Review of Systems A total of 10 systems reviewed and were otherwise negative Physical Exam Vital Signs Vital Signs - 24 hr 04/03/21 20:29 04/03/21 20:46 04/03/21 20:48 Temperature 37.1 C Temperature Source Oral Pulse Rate 140 H Pulse Rhythm Irregular Pulse Rhythm [Right Radial] Irregular Pulse Strength [Right Radial] Normal Respiratory Rate 14 Respiratory Effort / Characteristics Non-Labored Respiratory Depth Normal Normal Respiratory Pattern Regular Blood Pressure 127/77 Blood Pressure Mean 93 Pulse Oximetry 98 96 Oxygen Delivery Method Room Air Room Air Room Air Sepsis Recent Fever Within 48 Hours No Sepsis New/Unexplained Change in Mental Status No Sepsis Action Taken by Nursing No Action Required CONSTITUTIONAL/VITAL SIGNS: Reviewed / noted above. GENERAL: Non-toxic in appearance. INTEGUMENTARY: Warm, dry, and [place]. HEAD: Normocephalic. EYES: without scleral icterus or trauma. ENT/OROPHARYNX: clear and moist. LYMPHADENOPATHY/NECK: Is supple without lymphadenopathy or meningismus. RESPIRATORY: Clear to auscultation bilaterally. No increased work of breathing. CARDIOVASCULAR: Regular rate and rhythm. GI/ABDOMEN: Soft and nontender. No organomegaly or pulsatile mass. EXTREMITIES: Warm and well perfused. BACK: No CVA tenderness. NEUROLOGICAL: Intact without focal deficits. PSYCHIATRIC: normal affect. MUSCULOSKELETAL: Normally developed with good muscle tone. RECTAL: No gross blood. Darker brown stools. Guaiac positive. TRIAGE NURSING DOCUMENTATION REVIEWED. Course Administered Medications Discontinued Medications Diltiazem HCl (Diltiazem Hcl 5 Mg/Ml 5 Ml Vial) 15 mg IV NOW STA Stop: 04/03/21 21:00 Last Admin: 04/03/21 22:03 Dose: 15 mg Documented by: [id number] Cosigned by: [id number] Medical Decision Making Differential Diagnosis Differential includes acute coronary syndrome, myocardial infarction, CVA, TIA, anemia, infection, pneumonia, UTI, pyelonephritis, poor nutrition, dehydration, electrolyte disturbance,hypoglycemia. Medical Records Attestation: I reviewed the patient's medical records. Home Medications Current Medication List: was personally reviewed by me Laboratory Data Attestation: I reviewed the patient's lab results. Result diagrams: 04/03/21 19:50 04/03/21 19:50 Lab Results 04/03/21 04/03/21 04/03/21 Range/Units 19:50 19:50 20:56 WBC 7.02 (4.8-10.8) K/uL RBC 4.29 (4.2-5.4) M/uL Hgb 11.0 L (12.0-16.0) g/dL Hct 35.1 L (37-47) % MCV 81.8 (80-100) fL MCH 25.6 (25-34) pg MCHC 31.3 L (32-36) g/dL RDW Std Deviation 46.6 H (36.4-46.3) fL RDW Coeff of Addi 15.7 H (11.5-14.5) % Plt Count 405 H (130-400) K/uL MPV 10.5 H (7.4-10.4) fL Immature Gran % (Auto) 0.1 % Neut % (Auto) 72.5 % Lymph % (Auto) 16.1 % [place] % (Auto) 9.5 % Eos % (Auto) 1.4 % Baso % (Auto) 0.4 % Neut # (Auto) 5.08 (1.4-6.5) K/uL Lymph # (Auto) 1.13 L (1.2-3.4) K/uL [place] # (Auto) 0.67 H (0.11-0.59) K/uL Eos # (Auto) 0.10 (0-0.5) K/uL Baso # (Auto) 0.03 (0-0.2) K/uL Immature Gran # (Auto) 0.01 (0.00-0.02) K/uL Sodium 138 (136-145) mmol/L Potassium 4.1 (3.5-5.1) mmol/L Chloride 105 (98-107) mmol/L Carbon Dioxide 22 (21-32) mmol/L Anion Gap 11.0 (3-11) BUN 30 H (7-18) mg/dl Creatinine 1.68 H (0.6-1.2) mg/dl Est Cr Clr Drug Dosing 22.5 ml/min Est GFR ( Amer) 31.3 ml/min Est GFR (Non-Af Amer) 27.0 ml/min BUN/Creatinine Ratio 17.9 (10-20) Glucose 310 H* (70-99) mg/dl Calcium 9.0 (8.5-10.1) mg/dl Magnesium 2.0 (1.8-2.4) mg/dl Total Bilirubin 0.3 (0.2-1) mg/dl AST 13 L (15-37) U/L ALT 13 (12-78) U/L Alkaline Phosphatase 89 (45-117) U/L Total Protein 7.8 (6.4-8.2) gm/dl Albumin 2.7 L (3.4-5.0) gm/dl Globulin 5.1 H (2.5-4.0) gm/dl Albumin/Globulin Ratio 0.5 L (0.9-2) Beta-Hydroxybutyric Acd 2.17 (0.2-2.81) mg/dl TSH 1.600 (0.300-4.500) uIu/ml Urine Color Urine Appearance (Clear) Urine pH (4.5-7.5) Ur Specific [place] (1.000-1.030) Urine Protein (Negative) Urine Glucose (UA) (Negative) Urine Ketones (Negative) Urine Blood (Negative) Urine Nitrite (Negative) Urine Bilirubin (Negative) Urine Urobilinogen (Negative) Ur Leukocyte Esterase (Negative) Urine WBC (Auto) (0-5) /hpf Urine RBC (Auto) (0-4) /hpf U Hyaline Cast (Auto) (0-5) /lpf U Epithel Cells (Auto) (0-5) /lpf Urine Bacteria (Auto) (Negative) SARS-CoV-2, RNA, NAAT NEGATIVE (NEGATIVE) Blood Type Antibody Screen 04/03/21 04/03/21 Range/Units 21:15 21:37 WBC (4.8-10.8) K/uL RBC (4.2-5.4) M/uL Hgb (12.0-16.0) g/dL Hct (37-47) % MCV (80-100) fL MCH (25-34) pg MCHC (32-36) g/dL RDW Std Deviation (36.4-46.3) fL RDW Coeff of Addi (11.5-14.5) % Plt Count (130-400) K/uL MPV (7.4-10.4) fL Immature Gran % (Auto) % Neut % (Auto) % Lymph % (Auto) % [place] % (Auto) % Eos % (Auto) % Baso % (Auto) % Neut # (Auto) (1.4-6.5) K/uL Lymph # (Auto) (1.2-3.4) K/uL [place] # (Auto) (0.11-0.59) K/uL Eos # (Auto) (0-0.5) K/uL Baso # (Auto) (0-0.2) K/uL Immature Gran # (Auto) (0.00-0.02) K/uL Sodium (136-145) mmol/L Potassium (3.5-5.1) mmol/L Chloride (98-107) mmol/L Carbon Dioxide (21-32) mmol/L Anion Gap (3-11) BUN (7-18) mg/dl Creatinine (0.6-1.2) mg/dl Est Cr Clr Drug Dosing ml/min Est GFR ( Amer) ml/min Est GFR (Non-Af Amer) ml/min BUN/Creatinine Ratio (10-20) Glucose (70-99) mg/dl Calcium (8.5-10.1) mg/dl Magnesium (1.8-2.4) mg/dl Total Bilirubin (0.2-1) mg/dl AST (15-37) U/L ALT (12-78) U/L Alkaline Phosphatase (45-117) U/L Total Protein (6.4-8.2) gm/dl Albumin (3.4-5.0) gm/dl Globulin (2.5-4.0) gm/dl Albumin/Globulin Ratio (0.9-2) Beta-Hydroxybutyric Acd (0.2-2.81) mg/dl TSH (0.300-4.500) uIu/ml Urine Color Yellow Urine Appearance Clear (Clear) Urine pH 6.0 (4.5-7.5) Ur Specific [place] 1.013 (1.000-1.030) Urine Protein 2+ H (Negative) Urine Glucose (UA) 3+ H (Negative) Urine Ketones Negative (Negative) Urine Blood Negative (Negative) Urine Nitrite Negative (Negative) Urine Bilirubin Negative (Negative) Urine Urobilinogen Negative (Negative) Ur Leukocyte Esterase Negative (Negative) Urine WBC (Auto) 1-5 (0-5) /hpf Urine RBC (Auto) 0-4 (0-4) /hpf U Hyaline Cast (Auto) 0 (0-5) /lpf U Epithel Cells (Auto) 5-10 H (0-5) /lpf Urine Bacteria (Auto) Negative (Negative) SARS-CoV-2, RNA, NAAT (NEGATIVE) Blood Type A Negative Antibody Screen NEGATIVE Imaging Data Radiologist's Impression: Chest X-Ray 04/03/21 20:46 XR chest 1V portable HISTORY: 85 years-old Female weakness acute weakness COMPARISON: Chest radiograph and CTA chest 01/09/2020 TECHNIQUE: Portable AP view the chest FINDINGS: Cardiac silhouette is mildly enlarged. Calcified plaque of the thoracic aorta. Mild chronic interstitial coarsening. Hyperinflation. No pneumothorax, large pleural effusion or lobar airspace consolidation. Degenerative changes of the shoulders and spine. IMPRESSION: Cardiomegaly without acute process. ACT 112: Negative or not required by law. The above report was generated using voice recognition software. It may contain grammatical, syntax or spelling errors. Electronically signed by: Keshawn Henley M.D. 04/03/2021 9:01 PM ECG Data Attestation: I personally reviewed and interpreted this ECG as follows: Additional Comments: Twelve-lead EKG: Per my interpretation there is atrial fibrillation with RVR with a heart rate of 140. No ST elevation. No PVCs. Normal QTC. MDM Narrative Patient presents with rectal bleeding. Symptoms started Friday. No lightheadedness, dizziness or chest pains or shortness of breath. Patient is in A. fib with a heart rate of 140 on my evaluation. She was given some IV fluids by EMS. She does have guaiac positive stools but no gross blood on my exam. The patient's hemoglobin today is 11.0. This is close to her baseline. Covid test was negative. Urine test was negative. Chest x-ray was negative for acute disease. Glucose is 310. BUN is 30 and creatinine is 1.68. EKG showed A. fib with RVR with a heart rate of 140. She was given diltiazem 15 mg IV. This did slow the heart rate down to the 90s but then it did increase. She was given a second note of 20 mg IV. The patient will be seen by the hospitalist for further patient evaluation and care. Impression & Plan Atrial fibrillation with RVR, GI bleed Discharge Plan Visit Data Chief Complaint: Rectal Bleed Stated Complaint: Rectal Bleed ED Provider: Harshad Gurrola Discharge Problem: Atrial fibrillation with RVR, GI bleed Patient Disposition: Being Evaluated by Hospitalist Forms Stand Alone Forms: [facility], Virtual Emergency Department, Important Visit Information Prescriptions Prescriptions: No Action cyanocobalamin (vitamin B-12) 1,000 mcg tablet 1,000 mcg PO QAM RF: 0 sertraline [Zoloft] 25 mg tablet 25 mg PO QAM RF: 0 tolnaftate 1 % Powder 1 applic TOPICAL HS RF: 0 acetaminophen [Tylenol] 325 mg Tablet 650 mg PO Q4 MDD 3 GRAMS/24 HOURS. PRN (Reason: fever/pain) RF: 0 magnesium hydroxide [Milk of Magnesia] 400 mg/5 mL Suspension 30 ml PO DAILY PRN (Reason: .no bm 3 days) RF: 0 atorvastatin 10 mg Tablet 10 mg PO HS RF: 0 lisinopril 20 mg Tablet 20 mg PO QAM RF: 0 amlodipine 2.5 mg tablet 2.5 mg PO TID PRN (Reason: SBP >175.) RF: 0 amlodipine 5 mg tablet 5 mg PO QAM RF: 0 pantoprazole 20 mg Tablet,Delayed Release (Dr/Ec) 20 mg PO QAM RF: 0 ascorbic acid (vitamin C) [Vitamin C] 500 mg Tablet 500 mg PO BID RF: 0 metoprolol succinate 25 mg Tablet Extended Release 24 Hr 25 mg PO BID RF: 0 ketoconazole 2 % Cream 1 applic TOPICAL HS RF: 0 Nizoral A-D 1 % Shampoo 1 applic TOPICAL 2XWK RF: 0 Dermacerin Cream 1 applic TOPICAL HS RF: 0 Baby Shampoo Shampoo 1 ea TOPICAL HS RF: 0 diclofenac sodium [Voltaren] 1 % Gel 2 g TOPICAL TID RF: 0 melatonin 5 mg Tablet 5 mg PO HS RF: 0 cholecalciferol (vitamin D3) [Vitamin D3] 125 mcg (5,000 unit) Tablet 125 mcg PO QDL RF: 0 Myrbetriq 25 mg Tablet Extended Release 24 Hr 25 mg PO QDD RF: 0 Farxiga 5 mg Tablet 5 mg PO QAM RF: 0 Referrals Referrals: Jacobo Hutton [Primary Care Provider] -
--- NOTE | 2021-04-03 21:02 | XRay Report ---
XR chest 1V portable HISTORY: 85 years-old Female weakness acute weakness COMPARISON: Chest radiograph and CTA chest 01/09/2020 TECHNIQUE: Portable AP view the chest FINDINGS: Cardiac silhouette is mildly enlarged. Calcified plaque of the thoracic aorta. Mild chronic interstit ial coarsening. Hyperinflation. No pneumothorax, large pleural effusion or lobar airspace consolidati on. Degenerative changes of the shoulders and spine. IMPRESSION: Cardiomegaly without acute process. ACT 112: Negative or not required by law. The above report was generated using voice recognition software. It may contain grammatical, syntax o r spelling errors. Electronically signed by: Keshawn Henley M.D. 04/03/2021 9:01 PM
[2021-04-03 21:12] LABS: Basophils # (auto) 0.03 K/uL (0-0.2); Basophils % (auto) 0.4 %; Eosinophils % (auto) 1.4 %; Hematocrit (blood only) 35.1 % (37-47); Immature Granulocytes # (auto) 0.01 K/uL (0.00-0.02); Immature Granulocytes % (auto) 0.1 %; Lymphocytes # (auto) 1.13 K/uL (1.2-3.4); Lymphocytes % (auto) 16.1 %; Mean Corpuscular Hemoglobin 25.6 pg (25-34); Mean Corpuscular Hgb Conc 31.3 g/dL (32-36); Mean Corpuscular Volume 81.8 fL (80-100); Mean Platelet Volume 10.5 fL (7.4-10.4); Monocytes # (auto) 0.67 K/uL (0.11-0.59); Monocytes % (auto) 9.5 %; Neutrophils # (auto) 5.08 K/uL (1.4-6.5); Neutrophils % (auto) 72.5 %; Platelet Count 405 K/uL (130-400); RDW Coefficient of Variation 15.7 % (11.5-14.5); RDW Standard Deviation 46.6 fL (36.4-46.3); Red Blood Count 4.29 M/uL (4.2-5.4); White Blood Count 7.02 K/uL (4.8-10.8)
[2021-04-03 21:32] LABS: Appearance Urine Clear (Clear); Bacteria Urine Automated Negative (Negative); Bilirubin Urine Negative (Negative); Blood Urine Negative (Negative); Cast Urine Automated 0 /lpf (0-5); Color Urine Yellow; Glucose Urine UA 3+ (Negative); Ketones Urine Negative (Negative); Leukocyte Esterase Urine Negative (Negative); Nitrite Urine Negative (Negative); Protein Urine 2+ (Negative); RBC Urine Automated 0-4 /hpf (0-4); Specific Gravity Urine 1.013 (1.000-1.030); Urobilinogen Urine Negative (Negative)
[2021-04-03 21:53] LABS: Albumin Level 2.7 gm/dl (3.4-5.0); BUN Creatinine Ratio 17.9 (10-20); Creatinine Clr Calc Pharmacy 22.5 ml/min; Est GFR (African American) 31.3 ml/min; Potassium 4.1 mmol/L (3.5-5.1)
[2021-04-03 22:02] LABS: Albumin Globulin Ratio 0.5 (0.9-2); Bilirubin,Total 0.3 mg/dl (0.2-1); Globulin 5.1 gm/dl (2.5-4.0); Total Protein 7.8 gm/dl (6.4-8.2)
[2021-04-03 22:06] LABS: Beta-Hydroxybutyrate 2.17 mg/dl (0.2-2.81); Thyroid Stimulating Hormone 1.6 uIu/ml (0.300-4.500)
[2021-04-04] MEDS ORDERED: INSULIN GLARGINE SOLOSTAR 100 UNITS/ML 3 ML PEN SC STA
--- NOTE | 2021-04-04 01:59 | History & Physical Report ---
Date of Service April 04, 2021 Assessment & Plan (1) Atrial fibrillation with RVR: Plan: Currently off anticoagulation secondary to history of bleed as per records Improved control after initial intervention at the ER Painless LGIB Currently hemodynamically stable Hemoglobin at baseline chronic diastolic heart failure/right-sided heart failure/pulmonary hypertension (EF 65 to 70%, TTE 2019) Patient euvolemic hypertension, stable DM2 on oral medications, suboptimal control as of recent hemoglobin A1c of 8.17 March 2021 CRI, creatinine at baseline OBS PCU for A. fib Continue home beta-ajay and titrate accordingly Clear liquids for now GI consult Re: Nicole HILL Basal insulin, ISS BG goal 1 10-1 40, carb count coverage DVT prophylaxis. SCDs Re: Nicole GIB DNR Text document was generated using [employer] voice recognition software. It may contain grammatical or spelling errors. Kindly contact undersigned for clarification of any documentation item in question. History of Present Illness Chief Complaint: Rectal bleed Primary Care Provider: Jacobo Hutton History obtained from patient and records. Medical history significant for chronic diastolic heart failure/right-sided heart failure/pulmonary hypertension (EF 65 to 70%, TTE 2019), A. fib off anticoagulation, mitral regurgitation on TTE 2019, hypertension, DM2 on oral medications, CRI (baseline creatinine 1.6), chronic anemia (baseline hemoglobin 11), past tobacco abuse. Last confinement January 2020 for decompensated heart failure. 3 days history of rectal bleed without fever, chills. Patient denies abdominal pain. Denies chest pain, S OB. Patient noted to be in rapid A. fib upon arrival at the ER. IV Cardizem administered at the ER. Medical History as above Surgical History : Ankle surgery, knee surgery Family History : Hypertension Personal/Social history : Past tobacco abuse, no EtOH intake, snf resident, prior work as a [employer] Allergies Allergy/AdvReac Type Severity Reaction Status Date / Time ampicillin [From Unasyn] Allergy Intermediate Rash Verified 04/03/21 20:44 Cephalosporins Allergy Intermediate Rash Verified 04/03/21 20:44 ciprofloxacin [From Cipro] Allergy Intermediate Rash Verified 04/03/21 20:44 sulbactam [From Unasyn] Allergy Intermediate Rash Verified 04/03/21 20:44 Home Medications Medication Instructions Recorded Confirmed Type acetaminophen 325 mg tablet 650 mg PO Q4 PRN MDD 3 GRAMS/24 01/08/20 11/23/21 History (Tylenol) HOURS. cyanocobalamin (vitamin B-12) 1,000 mcg PO QAM 01/09/20 04/03/21 History 1,000 mcg tablet magnesium hydroxide 400 mg/5 mL 30 ml PO DAILY PRN 01/09/20 04/03/21 History oral suspension (Milk of Magnesia) sertraline 25 mg tablet (Zoloft) 25 mg PO QAM 01/09/20 04/03/21 History tolnaftate 1 % topical powder 1 applic TOPICAL HS 01/09/20 04/03/21 History amlodipine 2.5 mg tablet 2.5 mg PO TID PRN 04/03/21 04/03/21 History amlodipine 5 mg tablet 5 mg PO QAM 04/03/21 04/03/21 History ascorbic acid (vitamin C) 500 mg 500 mg PO BID 04/03/21 04/03/21 History tablet (Vitamin C) atorvastatin 10 mg tablet 10 mg PO HS 04/03/21 04/03/21 History cholecalciferol (vitamin D3) 125 125 mcg PO QDL 04/03/21 04/03/21 History mcg (5,000 unit) tablet (Vitamin D3) dapagliflozin 5 mg tablet (Farxiga) 5 mg PO QAM 04/03/21 04/03/21 History diclofenac sodium 1 % topical gel 2 g TOPICAL TID 04/03/21 04/03/21 History ketoconazole 1 % shampoo (Nizoral 1 applic TOPICAL 2XWK 04/03/21 04/03/21 History A-D) ketoconazole 2 % topical cream 1 applic TOPICAL HS 04/03/21 04/03/21 History lisinopril 20 mg tablet 20 mg PO QAM 04/03/21 04/03/21 History melatonin 5 mg tablet 5 mg PO HS 04/03/21 04/03/21 History metoprolol succinate 25 mg 25 mg PO BID 04/03/21 04/03/21 History tablet,extended release 24 hr mirabegron 25 mg tablet,extended 25 mg PO QDD 04/03/21 04/03/21 History release 24 hr (Myrbetriq) pantoprazole 20 mg tablet,delayed 20 mg PO QAM 04/03/21 04/03/21 History release soap 1 ea TOPICAL HS 04/03/21 04/03/21 History white petrolatum-mineral oil 1 applic TOPICAL HS 04/03/21 04/03/21 History topical cream (Dermacerin) Past Med/Surg History Medical History Atrial fibrillation Depression Diabetes mellitus Hypertension Surgical History History of ankle surgery History of knee surgery Family History Other Family history non-contributory Social History Smoking Status: Never smoker Second Hand Exposure: No; Hx Alcohol Use: No Hx Substance Use: No Preferred Language: Indonesian Communication Ability: Effective Die Attacher Required: No Beliefs That Will Affect Care: None Current Living Situation: Senior Care Feels Safe at Home: Yes Safety Concerns: Feels Safe At This Time Assistive Devices: Walker Review of Systems Review of Systems: As per HPI, all 10 systems reviewed, all other ROS negative Physical Exam Physical Exam: GENERAL: Comfortable, pleasant, looks younger for stated age, no respiratory distress SKIN: Pallor,, warm HEENT: Pale palpebral conjunctivae, no ptosis, moist buccal mucosa NECK : Supple, no tenderness CHEST : CTA, no tenderness HEART : Irregular, no obvious murmurs ABDOMEN: Some distention, nontender EXTREMITIES : Minimal LE swelling, no LE tenderness, no other conspicuous deformities noted NEUROLOGIC : Coherent, no facial asymmetry, no other gross focality Results & Data Results & Data ([facility]) Vital Signs (Past 12 Hours) Vital Signs Temp Pulse Pulse Resp BP BP Pulse Ox 04/04/21 00:25 98 H 14 98 04/04/21 00:20 103 H 16 96 04/04/21 00:10 92 H 17 96 04/04/21 00:00 87 15 95 04/03/21 22:47 106 H 16 117/74 96 04/03/21 20:48 96 04/03/21 20:29 37.1 C 140 H 14 127/77 98 Laboratory Results Laboratory Results WBC 7.02 K/uL (4.8-10.8) 04/03/21 19:50 RBC 4.29 M/uL (4.2-5.4) 04/03/21 19:50 Hgb 11.0 g/dL (12.0-16.0) L 04/03/21 19:50 Hct 35.1 % (37-47) L 04/03/21 19:50 MCV 81.8 fL (80-100) 04/03/21 19:50 MCH 25.6 pg (25-34) 04/03/21 19:50 MCHC 31.3 g/dL (32-36) L 04/03/21 19:50 RDW Std Deviation 46.6 fL (36.4-46.3) H 04/03/21 19:50 RDW Coeff of Addi 15.7 % (11.5-14.5) H 04/03/21 19:50 Plt Count 405 K/uL (130-400) H 04/03/21 19:50 MPV 10.5 fL (7.4-10.4) H 04/03/21 19:50 Immature Gran % (Auto) 0.1 % 04/03/21 19:50 Neut % (Auto) 72.5 % 04/03/21 19:50 Lymph % (Auto) 16.1 % 04/03/21 19:50 Dunn % (Auto) 9.5 % 04/03/21 19:50 Eos % (Auto) 1.4 % 04/03/21 19:50 Baso % (Auto) 0.4 % 04/03/21 19:50 Neut # (Auto) 5.08 K/uL (1.4-6.5) 04/03/21 19:50 Lymph # (Auto) 1.13 K/uL (1.2-3.4) L 04/03/21 19:50 Dunn # (Auto) 0.67 K/uL (0.11-0.59) H 04/03/21 19:50 Eos # (Auto) 0.10 K/uL (0-0.5) 04/03/21 19:50 Baso # (Auto) 0.03 K/uL (0-0.2) 04/03/21 19:50 Immature Gran # (Auto) 0.01 K/uL (0.00-0.02) 04/03/21 19:50 Sodium 138 mmol/L (136-145) 04/03/21 19:50 Potassium 4.1 mmol/L (3.5-5.1) 04/03/21 19:50 Chloride 105 mmol/L (98-107) 04/03/21 19:50 Carbon Dioxide 22 mmol/L (21-32) 04/03/21 19:50 Anion Gap 11.0 (3-11) 04/03/21 19:50 BUN 30 mg/dl (7-18) H 04/03/21 19:50 Creatinine 1.68 mg/dl (0.6-1.2) H 04/03/21 19:50 Est Cr Clr Drug Dosing 22.5 ml/min 04/03/21 19:50 Est GFR ( Amer) 31.3 ml/min 04/03/21 19:50 Est GFR (Non-Af Amer) 27.0 ml/min 04/03/21 19:50 BUN/Creatinine Ratio 17.9 (10-20) 04/03/21 19:50 Glucose 310 mg/dl (70-99) H* 04/03/21 19:50 Calcium 9.0 mg/dl (8.5-10.1) 04/03/21 19:50 Magnesium 2.0 mg/dl (1.8-2.4) 04/03/21 19:50 Total Bilirubin 0.3 mg/dl (0.2-1) 04/03/21 19:50 AST 13 U/L (15-37) L 04/03/21 19:50 ALT 13 U/L (12-78) 04/03/21 19:50 Alkaline Phosphatase 89 U/L (45-117) 04/03/21 19:50 Total Protein 7.8 gm/dl (6.4-8.2) 04/03/21 19:50 Albumin 2.7 gm/dl (3.4-5.0) L 04/03/21 19:50 Globulin 5.1 gm/dl (2.5-4.0) H 04/03/21 19:50 Albumin/Globulin Ratio 0.5 (0.9-2) L 04/03/21 19:50 Beta-Hydroxybutyric Acd 2.17 mg/dl (0.2-2.81) 04/03/21 19:50 TSH 1.600 uIu/ml (0.300-4.500) 04/03/21 19:50 Urine Color Yellow 04/03/21 21:15 Urine Appearance Clear (Clear) 04/03/21 21:15 Urine pH 6.0 (4.5-7.5) 04/03/21 21:15 Ur Specific [place] 1.013 (1.000-1.030) 04/03/21 21:15 Urine Protein 2+ (Negative) H 04/03/21 21:15 Urine Glucose (UA) 3+ (Negative) H 04/03/21 21:15 Urine Ketones Negative (Negative) 04/03/21 21:15 Urine Blood Negative (Negative) 04/03/21 21:15 Urine Nitrite Negative (Negative) 04/03/21 21:15 Urine Bilirubin Negative (Negative) 04/03/21 21:15 Urine Urobilinogen Negative (Negative) 04/03/21 21:15 Ur Leukocyte Esterase Negative (Negative) 04/03/21 21:15 Urine WBC (Auto) 1-5 /hpf (0-5) 04/03/21 21:15 Urine RBC (Auto) 0-4 /hpf (0-4) 04/03/21 21:15 U Hyaline Cast (Auto) 0 /lpf (0-5) 04/03/21 21:15 U Epithel Cells (Auto) 5-10 /lpf (0-5) H 04/03/21 21:15 Urine Bacteria (Auto) Negative (Negative) 04/03/21 21:15 SARS-CoV-2, RNA, NAAT NEGATIVE (NEGATIVE) 04/03/21 20:56 Blood Type A Negative 04/03/21 21:37 Antibody Screen NEGATIVE 04/03/21 21:37 Impressions Chest X-Ray 04/03/21 20:46 XR chest 1V portable HISTORY: 85 years-old Female weakness acute weakness COMPARISON: Chest radiograph and CTA chest 01/09/2020 TECHNIQUE: Portable AP view the chest FINDINGS: Cardiac silhouette is mildly enlarged. Calcified plaque of the thoracic aorta. Mild chronic interstitial coarsening. Hyperinflation. No pneumothorax, large pleural effusion or lobar airspace consolidation. Degenerative changes of the shoulders and spine. IMPRESSION: Cardiomegaly without acute process. ACT 112: Negative or not required by law. The above report was generated using voice recognition software. It may contain grammatical, syntax or spelling errors. Electronically signed by: Keshawn Henley M.D. 04/03/2021 9:01 PM Diagnostic Findings EKG as per my read: Rate 140, A. fib, normal axis, T wave abnormalities inferior leads
[2021-04-04] MEDS ORDERED: METOPROLOL TARTRATE 25 MG TAB PO STA (04:17)
[2021-04-04 05:49] LABS: Basophils # (auto) 0.03 K/uL (0-0.2); Basophils % (auto) 0.5 %; Eosinophils # (auto) 0.12 K/uL (0-0.5); Eosinophils % (auto) 1.9 %; Hematocrit (blood only) 33.8 % (37-47); Hemoglobin 10.8 g/dL (12.0-16.0); Immature Granulocytes # (auto) 0.02 K/uL (0.00-0.02); Immature Granulocytes % (auto) 0.3 %; Lymphocytes % (auto) 17.1 %; Mean Corpuscular Hemoglobin 26.1 pg (25-34); Mean Corpuscular Volume 81.6 fL (80-100); Mean Platelet Volume 9.6 fL (7.4-10.4); Monocytes # (auto) 0.69 K/uL (0.11-0.59); Monocytes % (auto) 10.7 %; Neutrophils # (auto) 4.47 K/uL (1.4-6.5); Neutrophils % (auto) 69.5 %; Platelet Count 360 K/uL (130-400); RDW Coefficient of Variation 15.6 % (11.5-14.5); RDW Standard Deviation 46.3 fL (36.4-46.3); Red Blood Count 4.14 M/uL (4.2-5.4); White Blood Count 6.43 K/uL (4.8-10.8)
[2021-04-04] MEDS ORDERED: DEXTROSE 50% 50 ML SYRINGE IV PRN (06:20)
[2021-04-04] MEDS ORDERED: GLUCOSE 40% GEL 15 GM TUBE PO PRN (06:20)
[2021-04-04] MEDS ORDERED: GLUCOSE 10 TABS/TUBE PO PRN (06:20)
[2021-04-04] MEDS ORDERED: CARBOHYDRATES FOR HYPOGLYCEMIA PO PRN (06:20)
[2021-04-04] MEDS ORDERED: ACETAMINOPHEN 325 MG TAB PO PRN ×2 (06:20)
[2021-04-04] MEDS ORDERED: GLUCAGON FOR INJ 1 MG VIAL SQ PRN (06:20)
[2021-04-04 06:29] LABS: BUN Creatinine Ratio 19.5 (10-20); Calcium 9.1 mg/dl (8.5-10.1); Creatinine Clr Calc Pharmacy 27.6 ml/min; Est GFR (African American) 40.1 ml/min; Est GFR (Non-African American) 34.6 ml/min; Potassium 4.3 mmol/L (3.5-5.1)
[2021-04-04] MEDS: amLODIPine BESYLATE 5 MG TAB PO SCH (08:22)
[2021-04-04] MEDS: CYANOCOBALAMIN 500 MCG TABLET (VITAMIN B-12) PO SCH (08:23)
[2021-04-04] MEDS: PANTOprazole 40 MG TAB PO SCH (08:23)
[2021-04-04] MEDS: SERTRALINE HCL 50 MG TABLET PO SCH (08:23)
[2021-04-04] MEDS: METOPROLOL SUCC 25MG EXT REL TAB PO SCH ×2 (08:24→17:29)
[2021-04-04] MEDS: INSULIN GLARGINE SOLOSTAR 100 UNITS/ML 3 ML PEN SC SCH (08:25)
[2021-04-04] MEDS: INSULIN ASPART 100 UNITS/ML 3 ML PEN SC SCH ×4 (08:27→20:38)
--- NOTE | 2021-04-04 09:14 | Gastrointestinal Consultation ---
Date of Consultation April 04, 2021 Assessment & Plan (1) GI bleed: Pt is a 85 y/o female w hx of Afib on Eliquis, seen for rectal bleeding which started 3 days ago but had since stopped after arrival in ED. No significant drop in blood ct, or rise of BUN, rectal exam showed non thrombosed ext hemorrhoid, brown stool w/o blood clot noted. DDx: diverticular, hemorrhoidal bleed, less likely ischemic colitis, AVMs. - Monitor blood ct and transfuse prn - Obtain CT abd/pelvis to r/o diverticular bleed, ischemic colitis - Monitor for further s/s of GI bleeding. Defer endoscopic workup at this time unless she continues to have GI bleeding - Advance diet as tolerated Supervising Physician Co-Signing Physician Notes Attending attestation I have seen, examined this patient, and agree with the findings and above by our mid-level provider ZHEN Holloway, with the following additions: - Doing well, no signs of acute GI bleeding - Hb Stable - Ok for diet - Supportive care - Call with questions History of Present Illness Reason for Consultation: Rectal bleeding Requesting Physician: Dr. Levi Killian Attending Physician: Dr. Parish Schafer History of Present Illness Pt is a 85 y/o female resident of [place] w PMHx of afib on Eliquis, pulmonary HTN, depression, HTN, DM, hx of diverticulitis, who presented to ED yesterday w c/o rectal bleeding which started on Friday when she woke up. She reports BRBPR on Friday x 1 episode w small amts of dark colored stools. Friday she noticed mostly clots, and yesterday having BRBPR again. She denies as sociated light headedness, dizziness, CP, SOB, abd pain, n/v. She felt a bit weak. Since arrival in ED she denies any more signs of rectal bleeding. Labs notable for mild anemia but at pt's baseline w Hgb of 11, no significant change overnight. No significant rise in BUN compared to Cr. She denies NSAIDs, no tobacco, ETOH abuses. She denies abd surgeries, hx of IBD or colorectal ca. She never had a colonoscopy before. Allergies Allergy/AdvReac Type Severity Reaction Status Date / Time ampicillin [From Unasyn] Allergy Intermediate Rash Verified 04/03/21 20:44 Cephalosporins Allergy Intermediate Rash Verified 04/03/21 20:44 ciprofloxacin [From Cipro] Allergy Intermediate Rash Verified 04/03/21 20:44 sulbactam [From Unasyn] Allergy Intermediate Rash Verified 04/03/21 20:44 Home Medications Medication Instructions Recorded Confirmed Type acetaminophen 325 mg tablet 650 mg PO Q4 PRN MDD 3 GRAMS/24 01/09/20 04/03/21 History (Tylenol) HOURS. cyanocobalamin (vitamin B-12) 1,000 mcg PO QAM 01/09/20 04/03/21 History 1,000 mcg tablet magnesium hydroxide 400 mg/5 mL 30 ml PO DAILY PRN 01/09/20 04/03/21 History oral suspension (Milk of Magnesia) sertraline 25 mg tablet (Zoloft) 25 mg PO QAM 01/09/20 04/03/21 History tolnaftate 1 % topical powder 1 applic TOPICAL HS 01/09/20 04/03/21 History amlodipine 2.5 mg tablet 2.5 mg PO TID PRN 04/03/21 04/03/21 History amlodipine 5 mg tablet 5 mg PO QAM 04/03/21 04/03/21 History ascorbic acid (vitamin C) 500 mg 500 mg PO BID 04/03/21 04/03/21 History tablet (Vitamin C) atorvastatin 10 mg tablet 10 mg PO HS 04/03/21 04/03/21 History cholecalciferol (vitamin D3) 125 125 mcg PO QDL 04/03/21 04/03/21 History mcg (5,000 unit) tablet (Vitamin D3) dapagliflozin 5 mg tablet (Farxiga) 5 mg PO QAM 04/03/21 04/03/21 History diclofenac sodium 1 % topical gel 2 g TOPICAL TID 04/03/21 04/03/21 History ketoconazole 1 % shampoo (Nizoral 1 applic TOPICAL 2XWK 04/03/21 04/03/21 History A-D) ketoconazole 2 % topical cream 1 applic TOPICAL HS 04/03/21 04/03/21 History lisinopril 20 mg tablet 20 mg PO QAM 04/03/21 04/03/21 History melatonin 5 mg tablet 5 mg PO HS 04/03/21 04/03/21 History metoprolol succinate 25 mg 25 mg PO BID 04/03/21 04/03/21 History tablet,extended release 24 hr mirabegron 25 mg tablet,extended 25 mg PO QDD 04/03/21 04/03/21 History release 24 hr (Myrbetriq) pantoprazole 20 mg tablet,delayed 20 mg PO QAM 04/03/21 04/03/21 History release soap 1 ea TOPICAL HS 04/03/21 04/03/21 History white petrolatum-mineral oil 1 applic TOPICAL HS 04/03/21 04/03/21 History topical cream (Dermacerin) Patient History Medical History Atrial fibrillation Depression Diabetes mellitus Hypertension Surgical History History of ankle surgery History of knee surgery Family History Other Family history non-contributory Social History Smoking Status: Never smoker Second Hand Exposure: No; Hx Alcohol Use: No Hx Substance Use: No Preferred Language: Polish Communication Ability: Effective Telephone Plant Power Operator Required: No Beliefs That Will Affect Care: None Current Living Situation: [facility] Feels Safe at Home: Yes Safety Concerns: Feels Safe At This Time Assistive Devices: Walker Review of Systems Review of Systems: All systems reviewed & are unremarkable except as noted in HPI & below Constitutional: as per Subjective / HPI Respiratory: no cough and no dyspnea Cardiovascular: no chest pain, no lightheadedness and no edema Gastrointestinal: as per Subjective / HPI Physical Exam Constitutional: WD/WN, vitals as above well groomed, cooperative and comfortable Eyes: PERRL, conjunctivae normal, anicteric sclerae ENMT: external ear and nose normal, oropharynx normal Respiratory: normal respiratory effort, lungs clear to auscultation Cardiovascular: RRR, no murmur, no edema Gastrointestinal (Abdomen): normal bowel sounds, soft, nontender, no hepatosplenomegaly Rectal: + external non thrombosed hemorrhoids, no fissure, internal exam w/o rectal mass, brown stool w/o clots noted Skin: no rashes, warm and dry no jaundice Psychiatric: A+Ox3, euthymic affect Lymphatic: no lymphedema Results & Data ([facility]) Vital Signs (Past 12 Hours) Vital Signs Temp Pulse Pulse Resp BP Pulse Ox 04/04/21 07:11 36.6 C 110 H 18 131/68 94 04/04/21 06:48 101 H 13 135/71 98 04/04/21 03:46 140/97 04/04/21 03:00 114 H 15 98 04/04/21 02:30 112 H 20 96 04/04/21 02:00 100 H 12 151/74 H 97 04/04/21 01:30 110 H 21 97 04/04/21 01:06 137 H 16 04/04/21 00:30 114 H 16 97 04/04/21 00:25 98 H 14 98 04/04/21 00:20 103 H 16 96 04/04/21 00:10 92 H 17 96 04/04/21 00:00 87 15 95 04/03/21 22:47 106 H 16 117/74 96
--- NOTE | 2021-04-04 10:34 | Gastrointestinal Consultation ---
Date of Consultation April 04, 2021 History of Present Illness Reason for Consultation: LGIB Requesting Physician: Dr. Lazar Attending Physician: Levi Killian MD Allergies Allergy/AdvReac Type Severity Reaction Status Date / Time ampicillin [From Unasyn] Allergy Intermediate Rash Verified 04/03/21 20:44 Cephalosporins Allergy Intermediate Rash Verified 04/03/21 20:44 ciprofloxacin [From Cipro] Allergy Intermediate Rash Verified 04/03/21 20:44 sulbactam [From Unasyn] Allergy Intermediate Rash Verified 04/03/21 20:44 Home Medications Medication Instructions Recorded Confirmed Type acetaminophen 325 mg tablet 650 mg PO Q4 PRN MDD 3 /24 01/09/20 04/03/21 History (Tylenol) HOURS. cyanocobalamin (vitamin B-12) 1,000 mcg PO QAM 01/09/20 04/03/21 History 1,000 mcg tablet magnesium hydroxide 400 mg/5 mL 30 ml PO DAILY PRN 01/09/20 04/03/21 History oral suspension (Milk of Magnmilabent) sertraline 25 mg tablet (Zoloft) 25 mg PO QAM 01/09/20 04/03/21 History tolnaftate 1 % topical powder 1 applic TOPICAL HS 01/09/20 04/03/21 History amlodipine 2.5 mg tablet 2.5 mg PO TID PRN 04/03/21 04/03/21 History amlodipine 5 mg tablet 5 mg PO QAM 04/03/21 04/03/21 History ascorbic acid (vitamin C) 500 mg 500 mg PO BID 04/03/21 04/03/21 History tablet (Vitamin C) atorvastatin 10 mg tablet 10 mg PO HS 04/03/21 04/03/21 History cholecalciferol (vitamin D3) 125 125 mcg PO QDL 04/03/21 04/03/21 History mcg (5,000 unit) tablet (Vitamin D3) dapagliflozin 5 mg tablet (Farxiga) 5 mg PO QAM 04/03/21 04/03/21 History diclofenac sodium 1 % topical gel 2 g TOPICAL TID 04/03/21 04/03/21 History ketoconazole 1 % shampoo (Nizoral 1 applic TOPICAL 2XWK 04/03/21 04/03/21 History A-D) ketoconazole 2 % topical cream 1 applic TOPICAL HS 04/03/21 04/03/21 History lisinopril 20 mg tablet 20 mg PO QAM 04/03/21 04/03/21 History melatonin 5 mg tablet 5 mg PO HS 04/03/21 04/03/21 History metoprolol succinate 25 mg 25 mg PO BID 04/03/21 04/03/21 History tablet,extended release 24 hr mirabegron 25 mg tablet,extended 25 mg PO QDD 04/03/21 04/03/21 History release 24 hr (Myrbetriq) pantoprazole 20 mg tablet,delayed 20 mg PO QAM 04/03/21 04/03/21 History release soap 1 ea TOPICAL HS 04/03/21 04/03/21 History white petrolatum-mineral oil 1 applic TOPICAL HS 04/03/21 04/03/21 History topical cream (Dermacerin) Patient History Medical History Atrial fibrillation Depression Diabetes mellitus Hypertension Surgical History History of ankle surgery History of knee surgery Family History Other Family history non-contributory Social History Smoking Status: Never smoker Second Hand Exposure: No; Hx Alcohol Use: No Hx Substance Use: No Preferred Language: Lebanese Communication Ability: Effective Gear Inspector Required: No Beliefs That Will Affect Care: None Current Living Situation: [facility] Feels Safe at Home: Yes Safety Concerns: Feels Safe At This Time Assistive Devices: Walker Results & Data ([facility]) Vital Signs (Past 12 Hours) Vital Signs Temp Pulse Pulse Resp BP Pulse Ox 04/04/21 09:27 102 H 20 105/84 94 04/04/21 07:11 36.6 C 110 H 18 131/68 94 04/04/21 06:48 101 H 13 135/71 98 04/04/21 03:46 140/97 04/04/21 03:00 114 H 15 98 04/04/21 02:30 112 H 20 96 04/04/21 02:00 100 H 12 151/74 H 97 04/04/21 01:30 110 H 21 97 04/04/21 01:06 137 H 16 04/04/21 00:30 114 H 16 97 04/04/21 00:25 98 H 14 98 04/04/21 00:20 103 H 16 96 04/04/21 00:10 92 H 17 96 04/04/21 00:00 87 15 95 04/03/21 22:47 106 H 16 117/74 96 PG Care Time/CCT Total # of Minutes Spent Total Time Spent with Patient: Total time spent is greater than 50% in coordination of care (as documented) at patient's floor/unit and/or counseling patient: Coding
[2021-04-04 12:12] LABS: Hematocrit (blood only) 35.9 % (37-47); Hemoglobin 11.2 g/dL (12.0-16.0)
--- NOTE | 2021-04-04 13:45 | CT Scan Report ---
CT abd pelvis wo con CLINICAL HISTORY: Patient complains of rectal bleeding for 5 days COMPARISON STUDY: 10/11/2019 CT DOSE: 425.44 mGy.cm TECHNIQUE: Standard CT of the Abdomen and Pelvis was performed without IV contrast. The patient did not receive oral contrast. A dose lowering technique was utilized adhering to the principles of DEYVI Mayes. FINDINGS: Lung base: The lung bases are clear. Abdominal cavity: There is no evidence for abdominal mass, adenopathy or ascites. Liver: The liver is homogeneous in attenuation on these limited noncontrast images.. Spleen: The spleen is homogeneous in attenuation on these limited noncontrast images. Pancreas: The pancreas is homogeneous in attenuation on these limited noncontrast images. Gall Bladder: The gallbladder is well distended with no evidence for cholelithiasis, wall thickening or pericholecystic edema.. Adrenal glands: The adrenal glands are normal in size and attenuation on these limited noncontrast im ages. Kidneys: The kidneys are homogeneous in attenuation on these limited noncontrast images. There is no evidence for gross renal mass, calculus or hydronephrosis bilaterally. Bowel: There is a small hiatal hernia. The bowel loops are normally placed within the abdomen and pel vis without evidence for dilatation or obstruction. There is pandiverticulosis with extensive diverti cular disease present involving the descending and sigmoid colon. The colonic mucosa cannot be evalua matthew due to lack of distention with oral contrast. There is no CT evidence for acute diverticulitis. Additionally, there is mucosal thickening of the rectum and anus. Direct clinical correlation is nece ssary for further evaluation. There are no inflammatory changes present. There is no evidence for jatinder e air. There is a normal appendix in the right lower quadrant. Bladder: There is no evidence for focal bladder wall thickening, calculus or diverticulum. : There is no evidence for pelvic mass or adenopathy. Vasculature: There is no evidence for focal aneurysmal dilatation of the abdominal aorta. Atheroscler otic calcification is present. Osseous structures: There is no acute osseous pathology. Degenerative changes are seen within the lum bar spine. IMPRESSION: 1. Evidence for abnormal mucosal thickening of the rectum and anus. Direct clinical correlation is ne cessary given the patient's history. 2. Finney diverticulosis which is most extensive involving the descending and sigmoid colon. The colonic mucosa cannot be fully evaluated due to lack of distention with oral contrast. 3. No other evidence for acute intra-abdominal or pelvic abnormality on these limited noncontrast wendy ges. 4. Additional nonacute findings as delineated above. ACT 112: Negative or not required by law. Electronically signed by: Deandre Barber M.D. 04/04/2021 1:43 PM
[2021-04-04] MEDS: MIRABEGRON ER 25 MG TAB PO SCH (17:22)
[2021-04-04] MEDS ORDERED: SODIUM CHLORIDE 0.9% 1000ML 1,000 ML IV SCH (17:30)
[2021-04-04 17:51] LABS: Hematocrit (blood only) 36.2 % (37-47); Hemoglobin 11.4 g/dL (12.0-16.0)
--- NOTE | 2021-04-04 19:06 | Hospitalist Progress Note ---
Date of Service April 04, 2021 Assessment & Plan (1) Atrial fibrillation with RVR: Plan: Currently off anticoagulation secondary to history of bleed as per records Improved control after initial intervention at the ER Hematochezia likely Diverticular bleed CT abd/pelvis: noted Hg stable at 11 GI: no plans for colonoscopy at this time monitor Hg Clear liquids chronic diastolic heart failure/right-sided heart failure/pulmonary hypertension (EF 65 to 70%, TTE 2019) Patient on the dry side IV NSS at 60cc/hr A fib Hr 120s IV fluids given continue Metoprolol XL 25mg BID Hypertension, stable DM2 on oral medications, suboptimal control as of recent hemoglobin A1c of 8.17 March 2021 CRI, 1.3 DVT prophylaxis. SCDs Re: L GIB DNR plan of care discussed with patient and her niece Suha Penny in detail and at length all questions answered they are understanding, agreeable, comfortable with the plan of care Admission and Anticipated Discharge Date Admission Date: April 04, 2021 Subjective ff up for GI bleed, a fib in RVR seen resting in bed, sitting up, comfortable in good spirits oriented, alert states she feels fine overall no abdominal pain, nausea tolerating clears well no recurrence of hematochezia while admitted no chest pain, dyspnea, palpitations, dizziness no other symptoms Review of Systems Review of Systems: all noted and negative except for above Physical Exam Physical Exam: General- oriented x 3, not in distress, speaks in sentences with no effort or accessory muscle use Eyes- anicteric Neck- no JVD Lungs- clear breath sounds bilaterally, no rales/wheezes Heart- mild tachy, irregularly irreg rhythm; no murmurs Abdomen- normal bowel sounds, nondistended, soft, nontender Extremities- no pretibial edema, no calf tenderness Neuro- alert, oriented x 3; no gross focal neurologic deficits Skin- warm & dry Results & Data Results & Data ([facility]) Vital Signs (Past 12 Hours) Vital Signs Temp Pulse Pulse Resp BP Pulse Ox 04/04/21 16:53 95 H 04/04/21 16:16 36.6 C 86 16 125/69 94 04/04/21 10:30 135 H 04/04/21 10:15 36.8 C 94 H 22 133/83 96 04/04/21 09:27 102 H 20 105/84 94 04/04/21 07:11 36.6 C 110 H 18 131/68 94 all noted and reviewed including below
[2021-04-04] MEDS: ATORVASTATIN 10 MG TAB PO SCH (20:37)
--- NOTE | 2021-04-05 06:20 | Electrocardiogram Report ---
Test Reason : Blood Pressure : / mmHG Vent. Rate : 140 BPM Atrial Rate : 127 BPM P-R Int : 000 ms QRS Dur : 088 ms QT Int : 310 ms P-R-T Axes : 000 057 -19 degrees QTc Int : 473 ms Poor data quality, interpretation may be adversely affected Atrial fibrillation with rapid ventricular response Nonspecific ST and T wave abnormality Abnormal ECG When compared with ECG of 09-JAN-2020 19:35, Atrial fibrillation has replaced Sinus rhythm Vent. rate has increased BY 82 BPM Confirmed by Gray Mckeon ([id number]) on 04/05/2021 6:20:24 AM Referred By: [facility] Confirmed By:Gray Mckeon
[2021-04-05] MEDS: INSULIN ASPART 100 UNITS/ML 3 ML PEN SC SCH ×4 (08:11→21:53)
[2021-04-05] MEDS: amLODIPine BESYLATE 5 MG TAB PO SCH (08:12)
[2021-04-05] MEDS: PANTOprazole 40 MG TAB PO SCH (08:12)
[2021-04-05] MEDS: SERTRALINE HCL 50 MG TABLET PO SCH (08:12)
[2021-04-05] MEDS: METOPROLOL SUCC 25MG EXT REL TAB PO SCH ×2 (08:12→19:49)
[2021-04-05] MEDS: INSULIN GLARGINE SOLOSTAR 100 UNITS/ML 3 ML PEN SC SCH (08:13)
[2021-04-05] MEDS: CYANOCOBALAMIN 500 MCG TABLET (VITAMIN B-12) PO SCH (08:13)
[2021-04-05 10:37] LABS: Basophils # (auto) 0.02 K/uL (0-0.2); Basophils % (auto) 0.3 %; Eosinophils # (auto) 0.09 K/uL (0-0.5); Eosinophils % (auto) 1.4 %; Hematocrit (blood only) 32.5 % (37-47); Hemoglobin 10.2 g/dL (12.0-16.0); Immature Granulocytes # (auto) 0.02 K/uL (0.00-0.02); Immature Granulocytes % (auto) 0.3 %; Lymphocytes # (auto) 0.98 K/uL (1.2-3.4); Lymphocytes % (auto) 15.7 %; Mean Corpuscular Hemoglobin 25.8 pg (25-34); Mean Corpuscular Hgb Conc 31.4 g/dL (32-36); Mean Corpuscular Volume 82.3 fL (80-100); Mean Platelet Volume 9.8 fL (7.4-10.4); Monocytes # (auto) 0.72 K/uL (0.11-0.59); Monocytes % (auto) 11.5 %; Neutrophils # (auto) 4.41 K/uL (1.4-6.5); Neutrophils % (auto) 70.8 %; Platelet Count 382 K/uL (130-400); RDW Coefficient of Variation 15.6 % (11.5-14.5); RDW Standard Deviation 47.1 fL (36.4-46.3); Red Blood Count 3.95 M/uL (4.2-5.4); White Blood Count 6.24 K/uL (4.8-10.8)
[2021-04-05 10:57] LABS: Albumin Level 2.1 gm/dl (3.4-5.0); BUN Creatinine Ratio 17.3 (10-20); Calcium 8.6 mg/dl (8.5-10.1); Creatinine Clr Calc Pharmacy 26.8 ml/min; Est GFR (African American) 38.7 ml/min; Est GFR (Non-African American) 33.4 ml/min
--- NOTE | 2021-04-05 11:12 | Gastroenterology Progress Note ---
Date of Service April 05, 2021 Assessment & Plan (1) GI bleed: (2) BRBPR (bright red blood per rectum): Plan: No further episodes overnight. Will advance diet as tolerated Consider Flex sig if any further overt GI bleeding noted Admission and Anticipated Discharge Date Admission Date: April 04, 2021 Subjective Patient is resting comfortably in bed, and denies any further BRBPR. She states she has not had any BM since her arrival. Nursing confirms no further BRBPR. CT scan was noted and she did have a slight drop in H/H overnight. She denies any abdominal pain, fevers, chills, nausea, vomiting, or other complaints. She is asking for "something to eat." Review of Systems Constitutional: as per Subjective / HPI Eyes: as per Subjective / HPI Ear, Nose, Mouth, Throat: as per Subjective / HPI Respiratory: as per Subjective / HPI Cardiovascular: as per Subjective / HPI Gastrointestinal: as per Subjective / HPI Musculoskeletal: as per Subjective / HPI Integumentary: as per Subjective / HPI Neurologic: as per Subjective / HPI Psychiatric: as per Subjective / HPI Endocrine: as per Subjective / HPI Hematologic / Lymphatic: as per Subjective / HPI Allergy / Immunological: as per Subjective / HPI Physical Exam Constitutional: WD/WN, vitals as above Respiratory: normal respiratory effort, lungs clear to auscultation Cardiovascular: RRR, no murmur, no edema Gastrointestinal (Abdomen): normal bowel sounds, soft, nontender, no hepatosplenomegaly Psychiatric: A+Ox3, euthymic affect Results & Data Results & Data ([facility]) Vital Signs (Past 12 Hours) Vital Signs Temp Pulse Pulse Resp BP Pulse Ox Pulse Ox 04/05/21 08:00 83 04/05/21 07:31 95 04/05/21 07:25 36.5 C 86 15 117/99 98 04/05/21 06:20 95 04/05/21 04:00 36.4 C L 107 H 16 133/63 95 04/05/21 00:18 36.8 C 96 H 14 110/68 97 04/05/21 00:00 108 H PG Care Time/CCT Total # of Minutes Spent Total Time Spent with Patient: Total time spent is greater than 50% in coordination of care (as documented) at patient's floor/unit and/or counseling patient: Coding Level of Care Code 77810 Subseq Hosp Care Lvl 3 Diagnoses GI bleed K92.2 BRBPR (bright red blood per rectum) K62.5
[2021-04-05 11:29] LABS: Albumin Globulin Ratio 0.5 (0.9-2); Bilirubin,Total 0.3 mg/dl (0.2-1); Globulin 4.1 gm/dl (2.5-4.0); Total Protein 6.2 gm/dl (6.4-8.2)
--- NOTE | 2021-04-05 12:49 | Hospitalist Progress Note ---
Date of Service April 05, 2021 delayed entry date of service noted above Assessment & Plan (1) Atrial fibrillation with RVR: Plan: Currently off anticoagulation secondary to history of bleed as per records Improved control after initial intervention at the ER Hematochezia likely Diverticular bleed CT abd/pelvis: noted Hg stable GI: no plans for colonoscopy at this time monitor Hg advance diet chronic diastolic heart failure/right-sided heart failure/pulmonary hypertension (EF 65 to 70%, TTE 2019) euvolvemic A fib Hr improving continue Metoprolol XL 25mg BID Hypertension, stable DM2 on oral medications, suboptimal control as of recent hemoglobin A1c of 8.17 March 2021 CRI, 1.3 DVT prophylaxis. SCDs Re: L GIB DNR Admission and Anticipated Discharge Date Admission Date: April 05, 2021 Subjective ff up for GI bleed, etc seen resting in bed, comfortable in good spirits states she feels fine overall no abdominal pain, nausea, melena/hematochezia no chest pain, dyspnea, palpitations, dizziness no other symptoms Review of Systems Review of Systems: all noted and negative except for above Physical Exam Physical Exam: General- oriented x 3, not in distress, speaks in sentences with no effort or accessory muscle use Eyes- anicteric Neck- no JVD Lungs- clear BS BL no rales/wheezing Heart- normal rate,irreg irregular rhythm; no murmurs Abdomen- normal bowel sounds, nondistended, soft, nontender Extremities- no pretibial edema, no calf tenderness Neuro- alert, oriented x 3; no gross focal neurologic deficits Skin- warm & dry Results & Data Results & Data ([facility]) Vital Signs (Past 12 Hours) Vital Signs Temp Pulse Pulse Resp BP Pulse Ox Pulse Ox 04/05/21 11:43 36.5 C 132 H 25 H 131/77 95 04/05/21 08:00 83 04/05/21 07:31 95 04/05/21 07:25 36.5 C 86 15 117/99 98 04/05/21 06:20 95 04/05/21 04:00 36.4 C L 107 H 16 133/63 95 all noted and reviewed including below
[2021-04-05] MEDS: METOPROLOL TARTRATE 1 MG/ML VIAL IV PRN ×2 (13:38→21:56)
[2021-04-05 15:25] LABS: Hematocrit (blood only) 32.6 % (37-47); Hemoglobin 10.2 g/dL (12.0-16.0)
[2021-04-05] MEDS: MIRABEGRON ER 25 MG TAB PO SCH (17:03)
[2021-04-05] MEDS: ATORVASTATIN 10 MG TAB PO SCH (19:49)
[2021-04-06 07:57] LABS: Basophils # (auto) 0.03 K/uL (0-0.2); Basophils % (auto) 0.4 %; Eosinophils # (auto) 0.14 K/uL (0-0.5); Hematocrit (blood only) 31.9 % (37-47); Hemoglobin 9.8 g/dL (12.0-16.0); Immature Granulocytes # (auto) 0.02 K/uL (0.00-0.02); Immature Granulocytes % (auto) 0.3 %; Lymphocytes # (auto) 1.38 K/uL (1.2-3.4); Lymphocytes % (auto) 19.9 %; Mean Corpuscular Hemoglobin 25.3 pg (25-34); Mean Corpuscular Hgb Conc 30.7 g/dL (32-36); Mean Corpuscular Volume 82.4 fL (80-100); Mean Platelet Volume 9.8 fL (7.4-10.4); Neutrophils # (auto) 4.45 K/uL (1.4-6.5); Neutrophils % (auto) 64.4 %; Platelet Count 368 K/uL (130-400); RDW Coefficient of Variation 15.7 % (11.5-14.5); Red Blood Count 3.87 M/uL (4.2-5.4); White Blood Count 6.92 K/uL (4.8-10.8)
[2021-04-06] MEDS: INSULIN ASPART 100 UNITS/ML 3 ML PEN SC SCH ×4 (08:14→20:56)
[2021-04-06] MEDS: PANTOprazole 40 MG TAB PO SCH (08:17)
[2021-04-06] MEDS: METOPROLOL SUCC 25MG EXT REL TAB PO SCH ×2 (08:17→20:22)
[2021-04-06] MEDS: SERTRALINE HCL 50 MG TABLET PO SCH (08:17)
[2021-04-06] MEDS: amLODIPine BESYLATE 5 MG TAB PO SCH (08:18)
[2021-04-06] MEDS: CYANOCOBALAMIN 500 MCG TABLET (VITAMIN B-12) PO SCH (08:18)
[2021-04-06] MEDS: INSULIN GLARGINE SOLOSTAR 100 UNITS/ML 3 ML PEN SC SCH (08:19)
[2021-04-06 08:33] LABS: Albumin Level 2.1 gm/dl (3.4-5.0); BUN Creatinine Ratio 20.1 (10-20); Calcium 8.5 mg/dl (8.5-10.1); Creatinine Clr Calc Pharmacy 23.9 ml/min; Est GFR (African American) 34.3 ml/min; Est GFR (Non-African American) 29.6 ml/min; Potassium 3.8 mmol/L (3.5-5.1)
[2021-04-06 08:35] LABS: Albumin Globulin Ratio 0.5 (0.9-2); Bilirubin,Total 0.3 mg/dl (0.2-1); Globulin 4.1 gm/dl (2.5-4.0); Total Protein 6.2 gm/dl (6.4-8.2)
[2021-04-06] MEDS: MIRABEGRON ER 25 MG TAB PO SCH (17:16)
--- NOTE | 2021-04-06 19:52 | Hospitalist Progress Note ---
Date of Service April 06, 2021 Assessment & Plan (1) Atrial fibrillation with RVR: Plan: Currently off anticoagulation secondary to history of bleed as per records Improved control after initial intervention at the ER Hematochezia likely Diverticular bleed CT abd/pelvis: noted Hg stable at ~10 GI: no plans for colonoscopy at this time monitor Hg advance diet chronic diastolic heart failure/right-sided heart failure/pulmonary hypertension (EF 65 to 70%, TTE 2019) euvolemic A fib IV fluids given continue Metoprolol XL 25mg BID Hypertension, stable overall DM2 on oral medications, suboptimal control as of recent hemoglobin A1c of 8.17 March 2021 CRI, crea 1.5,monitor DVT prophylaxis. SCDs Re: L GIB DNR Admission and Anticipated Discharge Date Admission Date: April 05, 2021 Subjective ff up for GI bleed, etc seen resting in bed, comfortable in good spirits states she feels better no chest pain, dyspnea, palpitations, dizziness had Bm today, dark brown no other symptoms Review of Systems Review of Systems: all noted and negative except for above Physical Exam Physical Exam: General- oriented x 3, not in distress, speaks in sentences with no effort or accessory muscle use Eyes- anicteric Neck- no JVD Lungs- clear BS BL Heart- normal rate, irregular irregular rhythm; no murmurs Abdomen- normal bowel sounds, nondistended, soft, nontender Extremities- no pretibial edema, no calf tenderness Neuro- alert, oriented x 3; no gross focal neurologic deficits Skin- warm & dry Results & Data Results & Data ([facility]) Vital Signs (Past 12 Hours) Vital Signs Temp Pulse Pulse Pulse Resp BP Pulse Ox 04/06/21 19:16 36.5 C 114 H 16 154/72 H 98 04/06/21 15:38 36.7 C 99 H 17 120/68 97 04/06/21 15:00 102 H 04/06/21 11:44 37.0 C 103 H 18 130/69 93 04/06/21 07:53 36.5 C 103 H 18 145/80 H 97 all noted and reviewed including below
[2021-04-06] MEDS: ATORVASTATIN 10 MG TAB PO SCH (20:22)
[2021-04-07 06:40] LABS: Basophils # (auto) 0.03 K/uL (0-0.2); Basophils % (auto) 0.5 %; Eosinophils # (auto) 0.13 K/uL (0-0.5); Eosinophils % (auto) 2.2 %; Hematocrit (blood only) 30.1 % (37-47); Hemoglobin 9.4 g/dL (12.0-16.0); Immature Granulocytes # (auto) 0.02 K/uL (0.00-0.02); Immature Granulocytes % (auto) 0.3 %; Lymphocytes # (auto) 1.31 K/uL (1.2-3.4); Lymphocytes % (auto) 21.7 %; Mean Corpuscular Hemoglobin 25.6 pg (25-34); Mean Corpuscular Hgb Conc 31.2 g/dL (32-36); Mean Platelet Volume 9.2 fL (7.4-10.4); Monocytes # (auto) 0.52 K/uL (0.11-0.59); Monocytes % (auto) 8.6 %; Neutrophils # (auto) 4.03 K/uL (1.4-6.5); Neutrophils % (auto) 66.7 %; Platelet Count 354 K/uL (130-400); Red Blood Count 3.67 M/uL (4.2-5.4); White Blood Count 6.04 K/uL (4.8-10.8)
[2021-04-07 07:12] LABS: Albumin Level 2.1 gm/dl (3.4-5.0); BUN Creatinine Ratio 20.8 (10-20); Calcium 8.8 mg/dl (8.5-10.1); Creatinine Clr Calc Pharmacy 24.3 ml/min; Est GFR (African American) 34.5 ml/min; Est GFR (Non-African American) 29.8 ml/min
[2021-04-07 07:15] LABS: Albumin Globulin Ratio 0.5 (0.9-2); Bilirubin,Total 0.3 mg/dl (0.2-1); Globulin 4.1 gm/dl (2.5-4.0); Total Protein 6.2 gm/dl (6.4-8.2)
[2021-04-07] MEDS: INSULIN ASPART 100 UNITS/ML 3 ML PEN SC SCH ×4 (08:47→20:57)
[2021-04-07] MEDS: METOPROLOL SUCC 25MG EXT REL TAB PO SCH ×2 (08:48→20:07)
[2021-04-07] MEDS: INSULIN GLARGINE SOLOSTAR 100 UNITS/ML 3 ML PEN SC SCH (08:48)
[2021-04-07] MEDS: PANTOprazole 40 MG TAB PO SCH (08:49)
[2021-04-07] MEDS: SERTRALINE HCL 50 MG TABLET PO SCH (08:49)
[2021-04-07] MEDS: CYANOCOBALAMIN 500 MCG TABLET (VITAMIN B-12) PO SCH (08:49)
[2021-04-07] MEDS: amLODIPine BESYLATE 5 MG TAB PO SCH (08:49)
[2021-04-07] MEDS: MIRABEGRON ER 25 MG TAB PO SCH (17:09)
--- NOTE | 2021-04-07 17:44 | Hospitalist Progress Note ---
Date of Service April 07, 2021 Assessment & Plan (1) Atrial fibrillation with RVR: Plan: Currently off anticoagulation secondary to history of bleed as per records Improved control after initial intervention at the ER Hematochezia likely Diverticular bleed CT abd/pelvis: noted Hg stable at ~10 GI: no plans for colonoscopy at this time hg stable no signs of GI bleed recurrence anticipate d/c tomorrow advance diet chronic diastolic heart failure/right-sided heart failure/pulmonary hypertension (EF 65 to 70%, TTE 2019) euvolemic A fib IV fluids given HR now controlled continue Metoprolol XL 25mg BID Hypertension, stable overall DM2 on oral medications, suboptimal control as of recent hemoglobin A1c of 8.17 March 2021 CRI, crea 1.5,monitor DVT prophylaxis. SCDs Re: L GIB DNR Admission and Anticipated Discharge Date Admission Date: April 05, 2021 Subjective ff up for anemia, a fib etc seen resting in bed, sitting up in good spirits comfortable states she feels fine overall no signs of GI bleed no abdominal pain, nausea tolerating diet very well no chest pain, dyspnea, palpitations, dizziness no other symptoms Review of Systems Review of Systems: all noted and negative except for above Physical Exam Physical Exam: General- oriented x 3, not in distress, speaks in sentences with no effort or accessory muscle use Eyes- anicteric Neck- no JVD Lungs- clear BS BL Heart- normal rate, irregularly irregular rhythm; no murmurs Abdomen- normal bowel sounds, nondistended, soft, nontender Extremities- no pretibial edema, no calf tenderness Neuro- alert, oriented x 3; no gross focal neurologic deficits Skin- warm & dry Results & Data Results & Data ([facility]) Vital Signs (Past 12 Hours) Vital Signs Temp Pulse Pulse Resp BP Pulse Ox 04/07/21 16:04 94 H 04/07/21 15:59 36.6 C 87 20 99/60 L 95 04/07/21 11:55 36.5 C 91 H 20 136/75 97 04/07/21 07:52 36.6 C 102 H 22 116/60 04/07/21 07:30 95 H all noted and reviewed including below
[2021-04-07] MEDS: ATORVASTATIN 10 MG TAB PO SCH (20:07)
[2021-04-08 07:15] LABS: Basophils # (auto) 0.02 K/uL (0-0.2); Basophils % (auto) 0.3 %; Eosinophils # (auto) 0.15 K/uL (0-0.5); Eosinophils % (auto) 2.1 %; Hematocrit (blood only) 29.8 % (37-47); Hemoglobin 9.3 g/dL (12.0-16.0); Immature Granulocytes # (auto) 0.02 K/uL (0.00-0.02); Immature Granulocytes % (auto) 0.3 %; Lymphocytes # (auto) 1.37 K/uL (1.2-3.4); Lymphocytes % (auto) 18.8 %; Mean Corpuscular Hemoglobin 25.8 pg (25-34); Mean Corpuscular Hgb Conc 31.2 g/dL (32-36); Mean Corpuscular Volume 82.5 fL (80-100); Mean Platelet Volume 9.5 fL (7.4-10.4); Monocytes # (auto) 0.75 K/uL (0.11-0.59); Monocytes % (auto) 10.3 %; Neutrophils # (auto) 4.99 K/uL (1.4-6.5); Neutrophils % (auto) 68.2 %; Platelet Count 394 K/uL (130-400); RDW Coefficient of Variation 16.1 % (11.5-14.5); RDW Standard Deviation 48.4 fL (36.4-46.3); Red Blood Count 3.61 M/uL (4.2-5.4)
[2021-04-08 07:35] LABS: Albumin Level 2.1 gm/dl (3.4-5.0); BUN Creatinine Ratio 18.9 (10-20); Calcium 8.4 mg/dl (8.5-10.1); Creatinine Clr Calc Pharmacy 21.6 ml/min; Est GFR (Non-African American) 25.9 ml/min; Potassium 4.1 mmol/L (3.5-5.1)
[2021-04-08 07:38] LABS: Albumin Globulin Ratio 0.5 (0.9-2); Bilirubin,Total 0.3 mg/dl (0.2-1); Globulin 4.1 gm/dl (2.5-4.0); Total Protein 6.2 gm/dl (6.4-8.2)
[2021-04-08] MEDS: INSULIN ASPART 100 UNITS/ML 3 ML PEN SC SCH ×2 (08:35→12:02)
[2021-04-08] MEDS: amLODIPine BESYLATE 5 MG TAB PO SCH (08:36)
[2021-04-08] MEDS: CYANOCOBALAMIN 500 MCG TABLET (VITAMIN B-12) PO SCH (08:36)
[2021-04-08] MEDS: PANTOprazole 40 MG TAB PO SCH (08:36)
[2021-04-08] MEDS: METOPROLOL SUCC 25MG EXT REL TAB PO SCH (08:36)
[2021-04-08] MEDS: INSULIN GLARGINE SOLOSTAR 100 UNITS/ML 3 ML PEN SC SCH (08:37)
[2021-04-08] MEDS: SERTRALINE HCL 50 MG TABLET PO SCH (08:37)
--- NOTE | 2021-04-08 13:11 | Hospitalist Progress Note ---
Date of Service April 08, 2021 Assessment & Plan (1) Atrial fibrillation with RVR: Plan: Currently off anticoagulation secondary to history of bleed as per records Improved control after initial intervention at the ER Hematochezia likely Diverticular bleed CT abd/pelvis: noted Hg stable at ~10 GI: no plans for colonoscopy at this time hg stable no signs of GI bleed recurrence Senokot S daily monitor CBC as outpatient chronic diastolic heart failure/right-sided heart failure/pulmonary hypertension (EF 65 to 70%, TTE 2019) euvolemic A fib tachycardic initially during admission IV fluids given HR now controlled continue Metoprolol XL 25mg BID ff up with Sales And Service Technician in 2 weeks Hypertension, stable overall DM2 on oral medications, suboptimal control as of recent hemoglobin A1c of 8.17 March 2021 CRI, crea 1.7 -- repeat bun/crea in 3 days -- encourage to drink more water DVT prophylaxis. SCDs Re: L GIB DNR Disposition d/c today ff up with PCP in 1 week Admission and Anticipated Discharge Date Admission Date: April 05, 2021 Subjective ff up for GI bleed, etc seen resting in bedside chair, comfortable smiling states she feels fine no new symptoms no abdominal pain,nausea/vomiting, melena/hematochezia no chest pain, dyspnea, palpitations, dizziness no other symptoms states she is ready for discharge today Review of Systems Review of Systems: all noted and negative except for above Physical Exam Physical Exam: General- oriented x 3, not in distress, speaks in sentences with no effort or accessory muscle use Eyes- anicteric Neck- no JVD Lungs- clear BS BL Heart- normal rate, irregularly irregular rhythm; no murmurs Abdomen- normal bowel sounds, nondistended, soft, nontender Extremities- no pretibial edema, no calf tenderness Neuro- alert, oriented x 3; no gross focal neurologic deficits Skin- warm & dry Results & Data Results & Data ([facility]) Vital Signs (Past 12 Hours) Vital Signs Temp Pulse Pulse Resp BP Pulse Ox 04/08/21 12:50 36.7 C 90 99 H 19 150/82 H 98 04/08/21 11:58 36.7 C 90 19 150/82 H 98 04/08/21 08:22 36.5 C 103 H 18 120/73 94 04/08/21 05:25 36.2 C L 102 H 16 144/76 H 98 all noted and reviewed including below
--- NOTE | 2021-04-08 13:11 | Discharge Summary ---
Date of Service April 08, 2021 Admission HPI Per Admitting Provider History obtained from patient and records. Medical history significant for chronic diastolic heart failure/right-sided heart failure/pulmonary hypertension (EF 65 to 70%, TTE 2019), A. fib off anticoagulation, mitral regurgitation on TTE 2019, hypertension, DM2 on oral medications, CRI (baseline creatinine 1.6), chronic anemia (baseline hemoglobin 11), past tobacco abuse. Last confinement January 2020 for decompensated heart failure. 3 days history of rectal bleed without fever, chills. Patient denies abdominal pain. Denies chest pain, S OB. Patient noted to be in rapid A. fib upon arrival at the ER. IV Cardizem administered at the ER. Medical History as above Surgical History : Ankle surgery, knee surgery Family History : Hypertension Personal/Social history : Past tobacco abuse, no EtOH intake, [facility] resident, prior work as a ditch digger Admission Exam (Per Admitting) Constitutional GENERAL: Comfortable, pleasant, looks younger for stated age, no respiratory distress SKIN: Pallor,, warm HEENT: Pale palpebral conjunctivae, no ptosis, moist buccal mucosa NECK : Supple, no tenderness CHEST : CTA, no tenderness HEART : Irregular, no obvious murmurs ABDOMEN: Some distention, nontender EXTREMITIES : Minimal LE swelling, no LE tenderness, no other conspicuous deformities noted NEUROLOGIC : Coherent, no facial asymmetry, no other gross focality Discharge Data Consultations 04/03/21 22:47 ED Decision to Admit Stat 04/04/21 06:20 Consult Gastroenterology Routine Procedures Performed CT abd pelvis wo con CLINICAL HISTORY: Patient complains of rectal bleeding for 5 days COMPARISON STUDY: 10/11/2019 CT DOSE: 425.44 mGy.cm TECHNIQUE: Standard CT of the Abdomen and Pelvis was performed without IV contrast. The patient did not receive oral contrast. A dose lowering technique was utilized adhering to the principles of ALARA. FINDINGS: Lung base: The lung bases are clear. Abdominal cavity: There is no evidence for abdominal mass, adenopathy or ascites. Liver: The liver is homogeneous in attenuation on these limited noncontrast images.. Spleen: The spleen is homogeneous in attenuation on these limited noncontrast images. Pancreas: The pancreas is homogeneous in attenuation on these limited noncontrast images. Gall Bladder: The gallbladder is well distended with no evidence for cholelithiasis, wall thickening or pericholecystic edema.. Adrenal glands: The adrenal glands are normal in size and attenuation on these limited noncontrast images. Kidneys: The kidneys are homogeneous in attenuation on these limited noncontrast images. There is no evidence for gross renal mass, calculus or hydronephrosis bilaterally. Bowel: There is a small hiatal hernia. The bowel loops are normally placed within the abdomen and pelvis without evidence for dilatation or obstruction. There is pandiverticulosis with extensive diverticular disease present involving the descending and sigmoid colon. The colonic mucosa cannot be evaluated due to lack of distention with oral contrast. There is no CT evidence for acute diverticulitis. Additionally, there is mucosal thickening of the rectum and anus. Direct clinical correlation is necessary for further evaluation. There are no inflammatory changes present. There is no evidence for free air. There is a normal appendix in the right lower quadrant. Bladder: There is no evidence for focal bladder wall thickening, calculus or diverticulum. : There is no evidence for pelvic mass or adenopathy. Vasculature: There is no evidence for focal aneurysmal dilatation of the abdominal aorta. Atherosclerotic calcification is present. Osseous structures: There is no acute osseous pathology. Degenerative changes are seen within the lumbar spine. IMPRESSION: 1. Evidence for abnormal mucosal thickening of the rectum and anus. Direct clinical correlation is necessary given the patient's history. 2. Finney diverticulosis which is most extensive involving the descending and sigmoid colon. The colonic mucosa cannot be fully evaluated due to lack of distention with oral contrast. 3. No other evidence for acute intra-abdominal or pelvic abnormality on these limited noncontrast images. 4. Additional nonacute findings as delineated above. ACT 112: Negative or not required by law. Electronically signed by: Deandre Barber M.D. 04/04/2021 1:43 PM Hospital Course (1) Atrial fibrillation with RVR: Currently off anticoagulation secondary to history of bleed as per records Improved control after initial intervention at the ER Hematochezia likely Diverticular bleed CT abd/pelvis: noted Hg stable at ~10 GI: no plans for colonoscopy at this time hg stable no signs of GI bleed recurrence Senokot S daily monitor CBC as outpatient chronic diastolic heart failure/right-sided heart failure/pulmonary hypertension (EF 65 to 70%, TTE 2019) euvolemic A fib tachycardic initially during admission IV fluids given HR now controlled continue Metoprolol XL 25mg BID ff up with Forest Engineer in 2 weeks Hypertension, stable overall DM2 on oral medications, suboptimal control as of recent hemoglobin A1c of 8.17 March 2021 CRI, crea 1.7 -- repeat bun/crea in 3 days -- encourage to drink more water DVT prophylaxis. SCDs Re: L SERGIO DNR Disposition d/c today ff up with PCP in 1 week
== END 2021-04-08 14:34 | DRG 378 ==
LOC: ED 20:13 → EDINP 20:13 → 1E 04-04 11:00 → 2S 04-05 12:44

== ENCOUNTER 2021-08-11 18:03 | Inpatient (IN) ==
--- NOTE | 2021-08-11 18:34 | XRay Report ---
XR chest 1V portable HISTORY: 85 years-old Female SEPSIS acute sepsis COMPARISON: Chest radiograph 04/03/2021 TECHNIQUE: Portable AP view of the chest FINDINGS: Cardiac silhouette is enlarged. Ill-defined opacity of the right lung apex. Exam is limited secondary to positioning of the patient's chin. Unchanged blunting of the costophrenic angles. No pneumothorax , large pleural effusion or overt pulmonary edema. Healed chronic left-sided rib fractures. Degenerat papa changes of the shoulders and spine. IMPRESSION: 1. Cardiac megaly without overt pulmonary edema. 2. Right apical opacity is likely secondary to summation density from patient positioning. This could be correlated with follow-up PA and lateral views of the chest. ACT 112: Negative or not required by law. The above report was generated using voice recognition software. It may contain grammatical, syntax o r spelling errors. Electronically signed by: Keshawn Henley M.D. 08/11/2021 6:33 PM
--- NOTE | 2021-08-11 18:43 | Emergency Department Note ---
History of Present Illness General Chief complaint: Vomiting Stated complaint: NAUSEA, VOMITING, DIARRHEA, CONFUSION, NOT EATING Time Seen by Provider: 08/11/21 18:10 Source: family (Niece at bedside) History of Present Illness Provider complaint: Weakness Onset (ago): month(s) 1 Associated symptoms: + confusion, + nausea/vomiting and + weakness 85-year-old female presents emergency department with niece for weakness. Niece reports that over the last month the patient has become increasingly weak and confused. She also reports that the patient has been having nausea vomiting and diarrhea for the last month. These reports that the patient was recently treated for UTI by the [facility] PCP system and she is not sure if the UTI ever cleared up. No falls. Home Medications Medication Instructions Recorded Confirmed Type acetaminophen 325 mg tablet 650 mg PO Q4 PRN MDD 3 GRAMS/24 01/09/20 08/11/21 History (Tylenol) HOURS. magnesium hydroxide 400 mg/5 mL 30 ml PO DAILY PRN 01/09/20 08/11/21 History oral suspension (Milk of Magnesia) tolnaftate 1 % topical powder 1 applic TOPICAL HS 01/09/20 08/11/21 History atorvastatin 10 mg tablet 10 mg PO HS 04/03/21 08/11/21 History cholecalciferol (vitamin D3) 125 125 mcg PO QDL 04/03/21 08/11/21 History mcg (5,000 unit) tablet (Vitamin D3) dapagliflozin 5 mg tablet (Farxiga) 5 mg PO QAM 04/03/21 08/11/21 History diclofenac sodium 1 % topical gel 2 g TOPICAL TID 04/03/21 08/11/21 History ketoconazole 1 % shampoo (Nizoral 1 applic TOPICAL 2XWK 04/03/21 08/11/21 History A-D) ketoconazole 2 % topical cream 1 applic TOPICAL HS 04/03/21 08/11/21 History soap 1 ea TOPICAL HS 04/03/21 08/11/21 History white petrolatum-mineral oil 1 applic TOPICAL HS 04/03/21 08/11/21 History topical cream (Dermacerin) diltiazem HCl 240 mg 240 mg PO QAM #90 cap 05/24/21 08/11/21 Rx capsule,extended release 24 hr ferrous sulfate 325 mg (65 mg 325 mg PO 3XWK 05/24/21 08/11/21 History iron) tablet metoprolol succinate 50 mg 50 mg PO BID #180 tab 05/24/21 08/11/21 Rx tablet,extended release 24 hr mirabegron 25 mg tablet,extended 25 mg PO DAILY tab 05/24/21 08/11/21 History release 24 hr (Myrbetriq) famotidine 20 mg tablet 20 mg PO DAILY 08/02/21 08/11/21 History atenolol 25 mg tablet 25 mg PO TID PRN 08/11/21 08/11/21 History lisinopril 2.5 mg tablet 2.5 mg PO QAM 08/11/21 08/11/21 History sennosides 8.6 mg-docusate sodium 1 tab-cap PO QAM 08/11/21 08/11/21 History 50 mg tablet (Senna Plus) Allergies Allergy/AdvReac Type Severity Reaction Status Date / Time ampicillin [From Unasyn] Allergy Intermediate Rash Verified 08/11/21 18:29 Cephalosporins Allergy Intermediate Rash Verified 08/11/21 18:29 ciprofloxacin [From Cipro] Allergy Intermediate Rash Verified 08/11/21 18:29 sulbactam [From Unasyn] Allergy Intermediate Rash Verified 08/11/21 18:29 Past Med/Surg History Medical History Atrial fibrillation Chronic right-sided CHF (congestive heart failure) Depression Diabetes mellitus GI bleed Hypertension Pulmonary hypertension Surgical History History of ankle surgery History of knee surgery Family History Other Family history non-contributory Social History Smoking Status: Never smoker Second Hand Exposure: No; Hx Alcohol Use: No Hx Substance Use: No Preferred Language: [place] Communication Ability: Effective Per Diem Registered Nurse Required: No Beliefs That Will Affect Care: None Current Living Situation: [facility] Feels Safe at Home: Yes Assistive Devices: Walker Review of Systems Unobtainable due to cognitive status Physical Exam Vital Signs Vital Signs - 24 hr 08/11/21 18:05 08/11/21 18:11 08/11/21 18:35 Temperature 36.7 C Temperature Source Temporal Artery Scan Pulse Rate 92 H 99 H Pulse Rate from SpO2 Sensor Pulse Rhythm Regular Pulse Strength Normal Respiratory Rate 20 18 Respiratory Effort / Characteristics Non-Labored Spontaneous Non-Labored Respiratory Depth Normal Respiratory Pattern Regular Blood Pressure 133/71 Blood Pressure Mean 91 Blood Pressure Position Sitting Pulse Oximetry 98 Oxygen Delivery Method Room Air Sepsis Recent Fever Within 48 Hours No Sepsis New/Unexplained Change in Mental Status N/A Sepsis Action Taken by Nursing No Action Required 08/11/21 18:40 08/11/21 18:50 08/11/21 19:00 Temperature Temperature Source Pulse Rate 95 H 95 H 92 H Pulse Rate from SpO2 Sensor 95 H 93 H Pulse Rhythm Pulse Strength Respiratory Rate 16 13 20 Respiratory Effort / Characteristics Respiratory Depth Respiratory Pattern Blood Pressure Blood Pressure Mean Blood Pressure Position Pulse Oximetry 99 99 Oxygen Delivery Method Sepsis Recent Fever Within 48 Hours Sepsis New/Unexplained Change in Mental Status Sepsis Action Taken by Nursing 08/11/21 19:11 08/11/21 19:17 08/11/21 19:20 Temperature Temperature Source Pulse Rate 103 H 89 Pulse Rate from SpO2 Sensor 93 H Pulse Rhythm Pulse Strength Respiratory Rate 18 17 18 Respiratory Effort / Characteristics Non-Labored Respiratory Depth Respiratory Pattern Blood Pressure Blood Pressure Mean Blood Pressure Position Pulse Oximetry 98 98 Oxygen Delivery Method Room Air Sepsis Recent Fever Within 48 Hours Sepsis New/Unexplained Change in Mental Status Sepsis Action Taken by Nursing 08/11/21 19:30 08/11/21 19:40 08/11/21 19:50 Temperature Temperature Source Pulse Rate 98 H 95 H 93 H Pulse Rate from SpO2 Sensor 96 H 99 H 85 Pulse Rhythm Pulse Strength Respiratory Rate 18 22 22 Respiratory Effort / Characteristics Respiratory Depth Respiratory Pattern Blood Pressure Blood Pressure Mean Blood Pressure Position Pulse Oximetry 98 99 97 Oxygen Delivery Method Sepsis Recent Fever Within 48 Hours Sepsis New/Unexplained Change in Mental Status Sepsis Action Taken by Nursing 08/11/21 20:00 08/11/21 20:10 08/11/21 20:20 Temperature Temperature Source Pulse Rate 88 99 H 97 H Pulse Rate from SpO2 Sensor 91 H 91 H 93 H Pulse Rhythm Pulse Strength Respiratory Rate 16 21 15 Respiratory Effort / Characteristics Respiratory Depth Respiratory Pattern Blood Pressure Blood Pressure Mean Blood Pressure Position Pulse Oximetry 98 98 97 Oxygen Delivery Method Sepsis Recent Fever Within 48 Hours Sepsis New/Unexplained Change in Mental Status Sepsis Action Taken by Nursing 08/11/21 20:30 08/11/21 20:40 08/11/21 20:50 Temperature Temperature Source Pulse Rate 89 87 89 Pulse Rate from SpO2 Sensor 91 H 93 H 90 Pulse Rhythm Pulse Strength Respiratory Rate 17 20 20 Respiratory Effort / Characteristics Non-Labored Respiratory Depth Respiratory Pattern Blood Pressure Blood Pressure Mean Blood Pressure Position Pulse Oximetry 98 99 100 Oxygen Delivery Method Sepsis Recent Fever Within 48 Hours Sepsis New/Unexplained Change in Mental Status Sepsis Action Taken by Nursing 08/11/21 21:00 08/11/21 21:10 08/11/21 21:11 Temperature Temperature Source Pulse Rate 87 87 Pulse Rate from SpO2 Sensor 96 H 89 Pulse Rhythm Pulse Strength Respiratory Rate 14 20 18 Respiratory Effort / Characteristics Non-Labored Spontaneous Non-Labored Respiratory Depth Normal Respiratory Pattern Blood Pressure Blood Pressure Mean Blood Pressure Position Pulse Oximetry 99 99 97 Oxygen Delivery Method Room Air Room Air Sepsis Recent Fever Within 48 Hours Sepsis New/Unexplained Change in Mental Status Sepsis Action Taken by Nursing 08/11/21 21:20 08/11/21 21:30 08/11/21 21:39 Temperature Temperature Source Pulse Rate 92 H 90 90 Pulse Rate from SpO2 Sensor 97 H 99 H 95 H Pulse Rhythm Pulse Strength Respiratory Rate 26 H 24 19 Respiratory Effort / Characteristics Respiratory Depth Respiratory Pattern Blood Pressure 148/90 H Blood Pressure Mean 109 Blood Pressure Position Pulse Oximetry 99 99 98 Oxygen Delivery Method Sepsis Recent Fever Within 48 Hours Sepsis New/Unexplained Change in Mental Status Sepsis Action Taken by Nursing 08/11/21 21:40 08/11/21 21:50 08/11/21 22:00 Temperature Temperature Source Pulse Rate 85 92 H 84 Pulse Rate from SpO2 Sensor 87 88 92 H Pulse Rhythm Pulse Strength Respiratory Rate 21 22 15 Respiratory Effort / Characteristics Respiratory Depth Respiratory Pattern Blood Pressure Blood Pressure Mean Blood Pressure Position Pulse Oximetry 98 99 99 Oxygen Delivery Method Sepsis Recent Fever Within 48 Hours Sepsis New/Unexplained Change in Mental Status Sepsis Action Taken by Nursing 08/11/21 22:10 08/11/21 22:20 08/11/21 22:30 Temperature Temperature Source Pulse Rate 101 H 82 88 Pulse Rate from SpO2 Sensor 94 H 87 86 Pulse Rhythm Pulse Strength Respiratory Rate 17 18 17 Respiratory Effort / Characteristics Respiratory Depth Respiratory Pattern Blood Pressure Blood Pressure Mean Blood Pressure Position Pulse Oximetry 98 99 99 Oxygen Delivery Method Sepsis Recent Fever Within 48 Hours Sepsis New/Unexplained Change in Mental Status Sepsis Action Taken by Nursing 08/11/21 22:40 08/11/21 22:50 08/11/21 23:00 Temperature Temperature Source Pulse Rate 83 85 85 Pulse Rate from SpO2 Sensor 83 94 H 91 H Pulse Rhythm Pulse Strength Respiratory Rate 20 17 22 Respiratory Effort / Characteristics Non-Labored Respiratory Depth Respiratory Pattern Blood Pressure Blood Pressure Mean Blood Pressure Position Pulse Oximetry 100 99 99 Oxygen Delivery Method Room Air Sepsis Recent Fever Within 48 Hours Sepsis New/Unexplained Change in Mental Status Sepsis Action Taken by Nursing 08/11/21 23:10 08/11/21 23:20 08/11/21 23:30 Temperature Temperature Source Pulse Rate 92 H 93 H 92 H Pulse Rate from SpO2 Sensor 89 85 84 Pulse Rhythm Pulse Strength Respiratory Rate 18 18 17 Respiratory Effort / Characteristics Respiratory Depth Respiratory Pattern Blood Pressure Blood Pressure Mean Blood Pressure Position Pulse Oximetry 99 100 99 Oxygen Delivery Method Sepsis Recent Fever Within 48 Hours Sepsis New/Unexplained Change in Mental Status Sepsis Action Taken by Nursing 08/11/21 23:40 08/11/21 23:50 Temperature Temperature Source Pulse Rate 85 82 Pulse Rate from SpO2 Sensor 89 82 Pulse Rhythm Pulse Strength Respiratory Rate 24 18 Respiratory Effort / Characteristics Respiratory Depth Respiratory Pattern Blood Pressure Blood Pressure Mean Blood Pressure Position Pulse Oximetry 98 98 Oxygen Delivery Method Sepsis Recent Fever Within 48 Hours Sepsis New/Unexplained Change in Mental Status Sepsis Action Taken by Nursing Physical Exam HENT: Exam performed. -Head: Normocephalic and atraumatic. -Right Ear: External ear normal. No mastoid tenderness. -Left Ear: External ear normal. No mastoid tenderness. -Mouth/Throat: The oropharynx is clear and moist. No trismus in the jaw. No dental abscesses or uvula swelling. No oropharyngeal exudate or tonsillar abscesses. EYES: Conjunctivae and EOM are normal. Pupils are equal, round, and reactive to light. Right eye exhibits no discharge. Left eye exhibits no discharge. No scleral icterus. NECK: Normal range of motion. Neck supple. No JVD present. No spinous process tenderness present. No carotid bruit present. CV: Normal rate, irregular rhythm, normal heart sounds and intact distal pulses. There is no peripheral edema. Palpable radial pulses bue. PULM/CHEST: Effort normal and breath sounds normal. No respiratory distress. No stridor. She has no wheezes. She has no rales. -Chest Wall: She exhibits no tenderness. ABD: The abdomen is soft. LYMPH: No cervical adenopathy. NEURO: She is alert and oriented to place, she is not oriented to person and t chen. No cranial nerve deficit or sensory deficit. GCS eye subscore is 4. GCS verbal subscore is 4. GCS motor subscore is 6. Cerebellar tests wnl. Course Course 1809: The patient was evaluated in room B9. A complete history and physical exam was performed Cardiac monitoring: An order was placed for continuous cardiac monitoring. The monitor shows a rate of 90 with atrial fibrilation rhythm 2030: Vital signs stable. Labs show mild leukocytosis of 13. CT of the head is within normal limits. Urinalysis within normal limits. CT of the abdomen shows no surgical emergencies but does show colitis. Family member at bedside is collected stool sample is asking the stool culture given. Bio fire and C. difficile ordered on the patient as she has been recently on antibiotics UTI. 0033: Vital signs stable. Patient is positive for C. difficile. Family member niece, Cori, is no longer at bedside. I did speak with her on the telephone [phone]. I did inform her of the positive C. difficile. She states she is a nurse who is requesting that the patient be admitted overnight if she does not feel like the detention will take care of the patient adequately. She is concerned that patient is dehydrated and is requesting that the patient be admitted for IV fluids and a few doses of vancomycin for her C. difficile. I did state I would speak with the hospitalist team about this. I spoke with the [facility] hospitalist Dr. Galo who agreed to evaluate the patient. Medical Decision Making Laboratory Data Result diagrams: 08/11/21 18:38 08/11/21 18:38 Lab Results 08/11/21 08/11/21 08/11/21 Range/Units 18:38 18:38 18:38 WBC 13.46 H (4.8-10.8) K/uL RBC 5.38 (4.2-5.4) M/uL Hgb 13.8 (12.0-16.0) g/dL Hct 42.2 (37-47) % MCV 78.4 L (80-100) fL MCH 25.7 (25-34) pg MCHC 32.7 (32-36) g/dL RDW Std Deviation 43.5 (36.4-46.3) fL RDW Coeff of Addi 15.1 H (11.5-14.5) % Plt Count 436 H (130-400) K/uL MPV 9.0 (7.4-10.4) fL Immature Gran % (Auto) 0.1 % Neut % (Auto) 87.5 % Lymph % (Auto) 7.1 % Oliver % (Auto) 5.1 % Eos % (Auto) 0.1 % Baso % (Auto) 0.1 % Neut # (Auto) 11.76 H (1.4-6.5) K/uL Lymph # (Auto) 0.96 L (1.2-3.4) K/uL [place] # (Auto) 0.69 H (0.11-0.59) K/uL Eos # (Auto) 0.02 (0-0.5) K/uL Baso # (Auto) 0.01 (0-0.2) K/uL Immature Gran # (Auto) 0.02 (0.00-0.02) K/uL PT 11.2 (9.0-12.0) Seconds INR 1.1 (0.9-1.1) APTT 30.5 (21.0-31.0) Seconds PTT Ratio 1.1 Sodium 133 L (136-145) mmol/L Potassium 3.6 (3.5-5.1) mmol/L Chloride 97 L (98-107) mmol/L Carbon Dioxide 25 (21-32) mmol/L Anion Gap 11 (3-11) BUN 16 (6-23) mg/dl Creatinine 1.40 H (0.6-1.2) mg/dl Est Cr Clr Drug Dosing 26.2 ml/min Est GFR ( Amer) 39.1 ml/min Est GFR (Non-Af Amer) 33.7 ml/min BUN/Creatinine Ratio 11.4 (10-20) Glucose 164 H (70-99(Fasting)) mg/dl Lactate (0.4-2.0) mmol/L Calcium 8.5 (8.5-10.1) mg/dl Magnesium 1.7 (1.7-2.4) mg/dl Total Bilirubin 0.5 (0.2-1.0) mg/dl AST 24 (13-39) U/L ALT 16 (7-52) U/L Alkaline Phosphatase 100 (34-104) U/L Troponin I < 0.03 (0-0.04) ng/ml Total Protein 7.1 (6.0-8.3) gm/dl Albumin 3.0 L (3.4-5.0) gm/dl Globulin 4.1 H (2.5-4.0) gm/dl Albumin/Globulin Ratio 0.7 L (0.9-2) Lipase 29 (11-82) U/L Procalcitonin (0-0.5) ng/ml Urine Color Urine Appearance (Clear) Urine pH (4.5-7.5) Ur Specific [place] (1.000-1.030) Urine Protein (Negative) Urine Glucose (UA) (Negative) Urine Ketones (Negative) Urine Blood (Negative) Urine Nitrite (Negative) Urine Bilirubin (Negative) Urine Urobilinogen (Negative) Ur Leukocyte Esterase (Negative) Urine WBC (Auto) (0-5) /hpf Urine RBC (Auto) (0-4) /hpf U Hyaline Cast (Auto) (0-5) /lpf U Epithel Cells (Auto) (0-5) /lpf Urine Bacteria (Auto) (Negative) Stl C. cayetanensis PCR (NotDetected) Stool Rotavirus A PCR (NotDetected) Stl Adenov F 40/41 PCR (NotDetected) Stool Astrovirus (PCR) (NotDetected) Stool Campylobacter PCR (NotDetected) Stl C.difficile Tox A&B (Negative) Stl C. diff Tox A/B PCR (NotDetected) Stool Cryptosporidium PCR (NotDetected) Stl E.coli Shiga Tox PCR (NotDetected) Stl Enterotoxigenic E PCR (NotDetected) Stool EPEC (PCR) (NotDetected) Stool EAEC (PCR) (NotDetected) Stl E. histolytica PCR (NotDetected) Stool Giardia Lamblia PCR (NotDetected) Stool Salmonella PCR (NotDetected) Stool Sapovirus (PCR) (NotDetected) Stl P. shigelloides PCR (NotDetected) Stl Shigella/EIEC PCR (NotDetected) St Y.enterocolitica PCR (NotDetected) Stool Vibrio (PCR) (NotDetected) Stl Vibrio cholerae PCR (NotDetected) Stl Norovirus GI/GII PCR (NotDetected) Influ A Molecular Assay (Negative) Influ B Molecular Assay (Negative) SARS-CoV-2, RNA, NAAT (NEGATIVE) 08/11/21 08/11/21 08/11/21 Range/Units 18:38 18:38 19:30 WBC (4.8-10.8) K/uL RBC (4.2-5.4) M/uL Hgb (12.0-16.0) g/dL Hct (37-47) % MCV (80-100) fL MCH (25-34) pg MCHC (32-36) g/dL RDW Std Deviation (36.4-46.3) fL RDW Coeff of Addi (11.5-14.5) % Plt Count (130-400) K/uL MPV (7.4-10.4) fL Immature Gran % (Auto) % Neut % (Auto) % Lymph % (Auto) % [place] % (Auto) % Eos % (Auto) % Baso % (Auto) % Neut # (Auto) (1.4-6.5) K/uL Lymph # (Auto) (1.2-3.4) K/uL [place] # (Auto) (0.11-0.59) K/uL Eos # (Auto) (0-0.5) K/uL Baso # (Auto) (0-0.2) K/uL Immature Gran # (Auto) (0.00-0.02) K/uL PT (9.0-12.0) Seconds INR (0.9-1.1) APTT (21.0-31.0) Seconds PTT Ratio Sodium (136-145) mmol/L Potassium (3.5-5.1) mmol/L Chloride (98-107) mmol/L Carbon Dioxide (21-32) mmol/L Anion Gap (3-11) BUN (6-23) mg/dl Creatinine (0.6-1.2) mg/dl Est Cr Clr Drug Dosing ml/min Est GFR ( Amer) ml/min Est GFR (Non-Af Amer) ml/min BUN/Creatinine Ratio (10-20) Glucose (70-99(Fasting)) mg/dl Lactate 1.7 (0.4-2.0) mmol/L Calcium (8.5-10.1) mg/dl Magnesium (1.7-2.4) mg/dl Total Bilirubin (0.2-1.0) mg/dl AST (13-39) U/L ALT (7-52) U/L Alkaline Phosphatase (34-104) U/L Troponin I (0-0.04) ng/ml Total Protein (6.0-8.3) gm/dl Albumin (3.4-5.0) gm/dl Globulin (2.5-4.0) gm/dl Albumin/Globulin Ratio (0.9-2) Lipase (11-82) U/L Procalcitonin 0.28 (0-0.5) ng/ml Urine Color Urine Appearance (Clear) Urine pH (4.5-7.5) Ur Specific [place] (1.000-1.030) Urine Protein (Negative) Urine Glucose (UA) (Negative) Urine Ketones (Negative) Urine Blood (Negative) Urine Nitrite (Negative) Urine Bilirubin (Negative) Urine Urobilinogen (Negative) Ur Leukocyte Esterase (Negative) Urine WBC (Auto) (0-5) /hpf Urine RBC (Auto) (0-4) /hpf U Hyaline Cast (Auto) (0-5) /lpf U Epithel Cells (Auto) (0-5) /lpf Urine Bacteria (Auto) (Negative) Stl C. cayetanensis PCR (NotDetected) Stool Rotavirus A PCR (NotDetected) Stl Adenov F 40/41 PCR (NotDetected) Stool Astrovirus (PCR) (NotDetected) Stool Campylobacter PCR (NotDetected) Stl C.difficile Tox A&B (Negative) Stl C. diff Tox A/B PCR (NotDetected) Stool Cryptosporidium PCR (NotDetected) Stl E.coli Shiga Tox PCR (NotDetected) Stl Enterotoxigenic E PCR (NotDetected) Stool EPEC (PCR) (NotDetected) Stool EAEC (PCR) (NotDetected) Stl E. histolytica PCR (NotDetected) Stool Giardia Lamblia PCR (NotDetected) Stool Salmonella PCR (NotDetected) Stool Sapovirus (PCR) (NotDetected) Stl P. shigelloides PCR (NotDetected) Stl Shigella/EIEC PCR (NotDetected) St Y.enterocolitica PCR (NotDetected) Stool Vibrio (PCR) (NotDetected) Stl Vibrio cholerae PCR (NotDetected) Stl Norovirus GI/GII PCR (NotDetected) Influ A Molecular Assay (Negative) Influ B Molecular Assay (Negative) SARS-CoV-2, RNA, NAAT NEGATIVE (NEGATIVE) 08/11/21 08/11/21 08/11/21 Range/Units 19:30 20:25 Unknown WBC (4.8-10.8) K/uL RBC (4.2-5.4) M/uL Hgb (12.0-16.0) g/dL Hct (37-47) % MCV (80-100) fL MCH (25-34) pg MCHC (32-36) g/dL RDW Std Deviation (36.4-46.3) fL RDW Coeff of Addi (11.5-14.5) % Plt Count (130-400) K/uL MPV (7.4-10.4) fL Immature Gran % (Auto) % Neut % (Auto) % Lymph % (Auto) % [place] % (Auto) % Eos % (Auto) % Baso % (Auto) % Neut # (Auto) (1.4-6.5) K/uL Lymph # (Auto) (1.2-3.4) K/uL [place] # (Auto) (0.11-0.59) K/uL Eos # (Auto) (0-0.5) K/uL Baso # (Auto) (0-0.2) K/uL Immature Gran # (Auto) (0.00-0.02) K/uL PT (9.0-12.0) Seconds INR (0.9-1.1) APTT (21.0-31.0) Seconds PTT Ratio Sodium (136-145) mmol/L Potassium (3.5-5.1) mmol/L Chloride (98-107) mmol/L Carbon Dioxide (21-32) mmol/L Anion Gap (3-11) BUN (6-23) mg/dl Creatinine (0.6-1.2) mg/dl Est Cr Clr Drug Dosing ml/min Est GFR ( Amer) ml/min Est GFR (Non-Af Amer) ml/min BUN/Creatinine Ratio (10-20) Glucose (70-99(Fasting)) mg/dl Lactate (0.4-2.0) mmol/L Calcium (8.5-10.1) mg/dl Magnesium (1.7-2.4) mg/dl Total Bilirubin (0.2-1.0) mg/dl AST (13-39) U/L ALT (7-52) U/L Alkaline Phosphatase (34-104) U/L Troponin I (0-0.04) ng/ml Total Protein (6.0-8.3) gm/dl Albumin (3.4-5.0) gm/dl Globulin (2.5-4.0) gm/dl Albumin/Globulin Ratio (0.9-2) Lipase (11-82) U/L Procalcitonin (0-0.5) ng/ml Urine Color Yellow Urine Appearance Clear (Clear) Urine pH 5.5 (4.5-7.5) Ur Specific [place] 1.022 (1.000-1.030) Urine Protein 3+ H (Negative) Urine Glucose (UA) 3+ H (Negative) Urine Ketones Negative (Negative) Urine Blood Trace H (Negative) Urine Nitrite Negative (Negative) Urine Bilirubin Negative (Negative) Urine Urobilinogen Negative (Negative) Ur Leukocyte Esterase Negative (Negative) Urine WBC (Auto) 10-30 H (0-5) /hpf Urine RBC (Auto) 5-10 H (0-4) /hpf U Hyaline Cast (Auto) 1-5 (0-5) /lpf U Epithel Cells (Auto) >30 H (0-5) /lpf Urine Bacteria (Auto) Negative (Negative) Stl C. cayetanensis PCR Not Detected (NotDetected) Stool Rotavirus A PCR Not Detected (NotDetected) Stl Adenov F 40/41 PCR Not Detected (NotDetected) Stool Astrovirus (PCR) Not Detected (NotDetected) Stool Campylobacter PCR Not Detected (NotDetected) Stl C.difficile Tox A&B Negative Cdiff Toxin (Negative) Stl C. diff Tox A/B PCR C.diff Gene Detected A (NotDetected) Stool Cryptosporidium PCR Not Detected (NotDetected) Stl E.coli Shiga Tox PCR Not Detected (NotDetected) Stl Enterotoxigenic E PCR Not Detected (NotDetected) Stool EPEC (PCR) Not Detected (NotDetected) Stool EAEC (PCR) Not Detected (NotDetected) Stl E. histolytica PCR Not Detected (NotDetected) Stool Giardia Lamblia PCR Not Detected (NotDetected) Stool Salmonella PCR Not Detected (NotDetected) Stool Sapovirus (PCR) Not Detected (NotDetected) Stl P. shigelloides PCR Not Detected (NotDetected) Stl Shigella/EIEC PCR Not Detected (NotDetected) St Y.enterocolitica PCR Not Detected (NotDetected) Stool Vibrio (PCR) Not Detected (NotDetected) Stl Vibrio cholerae PCR Not Detected (NotDetected) Stl Norovirus GI/GII PCR Not Detected (NotDetected) Influ A Molecular Assay Negative (Negative) Influ B Molecular Assay Negative (Negative) SARS-CoV-2, RNA, NAAT (NEGATIVE) Imaging Data Radiologist's Impression: Abdomen/Pelvis CT 08/11/21 18:[address] WITHOUT CONTRAST CT DOSE: 1524.00 mGy.cm HISTORY: Acute nausea and vomiting with weakness nv TECHNIQUE: Multiaxial CT images of the abdomen and pelvis were performed without contrast. A dose lowering technique was utilized adhering to the principles of ALARA. COMPARISON STUDY: CT abdomen and pelvis 04/04/2021 FINDINGS: Limited exam secondary to upper extremity positioning and lack of contrast. Cardiomegaly with trace pericardial effusion. Coronary artery calcifications. Trace pleural effusions. Minimal bibasilar atelectasis/scarring. No pneumatosis or pneumoperitoneum. The spleen, pancreas, contracted gallbladder and adrenal glands are unremarkable. Hepatic steatosis with mild hepatomegaly. Mildly atrophic right kidney. 4 mm calcification of the superior pole right kidney. Renal vascular calcifications. No hydronephrosis. Urinary bladder wall thickening with partial distention. Uterus and adnexa appear unremarkable. Atherosclerosis of the aorta and branch vessels. There is no adenopathy. No bowel obstruction. Extensive colonic diverticulosis. There is wall thickening of the colon which is most pronounced in the descending and sigmoid segments extending into the rectum. Pericolonic and perirectal inflammation without abscess or perforation. Normal appendix. Unremarkable soft tissues. Demineralized appearance of the bones. Moderate L5 compression deformity with 6 mm retropulsion, unchanged. IMPRESSION: 1. Findings compatible with a nonspecific colitis with wall thickening and pericolonic inflammatory stranding most pronounced within the descending, sigmoid colon and rectum. 2. Extensive colonic diverticulosis. 3. Hepatic steatosis. 4. Additional findings as above. ACT 112: Negative or not required by law. The above report was generated using voice recognition software. It may contain grammatical, syntax or spelling errors. Electronically signed by: Keshawn Henley M.D. 08/11/2021 7:32 PM Chest X-Ray 08/11/21 18:11 XR chest 1V portable HISTORY: 85 years-old Female SEPSIS acute sepsis COMPARISON: Chest radiograph 04/03/2021 TECHNIQUE: Portable AP view of the chest FINDINGS: Cardiac silhouette is enlarged. Ill-defined opacity of the right lung apex. Exam is limited secondary to positioning of the patient's chin. Unchanged blunting of the costophrenic angles. No pneumothorax, large pleural effusion or overt pulmonary edema. Healed chronic left-sided rib fractures. Degenerative changes of the shoulders and spine. IMPRESSION: 1. Cardiac megaly without overt pulmonary edema. 2. Right apical opacity is likely secondary to summation density from patient positioning. This could be correlated with follow-up PA and lateral views of the chest. ACT 112: Negative or not required by law. The above report was generated using voice recognition software. It may contain grammatical, syntax or spelling errors. Electronically signed by: Keshawn Henley M.D. 08/11/2021 6:[address] 08/11/21 18:11 CT head/brain wo con CLINICAL HISTORY: 85 years-old Female with nv weakness. Acute nausea and vomiting with weakness TECHNIQUE: Multiple axial CT images of the head were obtained without contrast. A dose lowering technique was utilized adhering to the principles of ALARA. COMPARISON: None. FINDINGS: No acute intracranial hemorrhage, midline shift, intracranial mass, hydrocephalus, territorial ischemia or abnormal extra-axial collection. Age- related involutional changes. White matter hypodensities suggest chronic micro vascular ischemic disease. Cerebral vascular calcifications. Subcentimeter hypodense focus of the right lentiform nucleus on image 14 is suggestive of a chronic lacunar infarct. The calvarium is intact. The paranasal sinuses, mastoid air cells, and middle ear cavities are clear. IMPRESSION: No acute intracranial abnormality. ACT 112: Negative or not required by law. The above report was generated using voice recognition software. It may contain grammatical, syntax or spelling errors. Electronically signed by: Keshawn Henley M.D. 08/11/2021 7:21 PM ECG Data Indication: + weakness Rate (beats per minute): 98 Rhythm: + atrial fibrillation ECG Intervals/blocks: + Normal QRS and + Normal QT-c ECG ST segments: + Normal ST segments MDM Narrative 1810: The patient was evaluated in room B9. A complete history and physical exam was performed Cardiac monitoring: An order was placed for continuous cardiac monitoring. The monitor shows a rate of 90 with atrial fibrilation rhythm 2030: Vital signs stable. Labs show mild leukocytosis of 13. CT of the head is within normal limits. Urinalysis within normal limits. CT of the abdomen shows no surgical emergencies but does show colitis. Family member at bedside is collected stool sample is asking the stool culture given. Bio fire and C. difficile ordered on the patient as she has been recently on antibiotics UTI. 0033: Vital signs stable. Patient is positive for C. difficile. Family member niece, Cori, is no longer at bedside. I did speak with her on the telephone [phone]. I did inform her of the positive C. difficile. She states she is a nurse who is requesting that the patient be admitted overnight if she does not feel like the detention will take care of the patient adequately. She is concerned that patient is dehydrated and is requesting that the patient be admitted for IV fluids and a few doses of vancomycin for her C. difficile. I did state I would speak with the hospitalist team about this. I spoke with the [facility] hospitalist Dr. Galo who agreed to evaluate the patient. Impression & Plan C. difficile colitis Discharge Plan Visit Data Chief Complaint: Vomiting Stated Complaint: NAUSEA, VOMITING, DIARRHEA, CONFUSION, NOT EATING ED Provider: Juan M Franks Discharge Problem: C. difficile colitis Patient Disposition: Being Evaluated by Hospitalist Forms Stand Alone Forms: My [facility] [place] Prescriptions Prescriptions: No Action famotidine 20 mg tablet 20 mg PO DAILY RF: 0 ferrous sulfate 325 mg (65 mg iron) tablet 325 mg PO 3XWK RF: 0 metoprolol succinate 50 mg tablet extended release 24 hr 50 mg PO BID Qty: 180 RF: 3 diltiazem HCl 240 mg capsule,extended release 24hr 240 mg PO QAM Qty: 90 RF: 3 tolnaftate 1 % Powder 1 applic TOPICAL HS RF: 0 acetaminophen [Tylenol] 325 mg Tablet 650 mg PO Q4 MDD 3 GRAMS/24 HOURS. PRN (Reason: fever/pain) RF: 0 magnesium hydroxide [Milk of Magnesia] 400 mg/5 mL Suspension 30 ml PO DAILY PRN (Reason: .no bm 3 days) RF: 0 atorvastatin 10 mg Tablet 10 mg PO HS RF: 0 ketoconazole 2 % Cream 1 applic TOPICAL HS RF: 0 Nizoral A-D 1 % Shampoo 1 applic TOPICAL 2XWK RF: 0 Dermacerin Cream 1 applic TOPICAL HS RF: 0 soap Shampoo 1 ea TOPICAL HS RF: 0 diclofenac sodium 1 % Gel 2 g TOPICAL TID RF: 0 cholecalciferol (vitamin D3) [Vitamin D3] 125 mcg (5,000 unit) Tablet 125 mcg PO QDL RF: 0 Farxiga 5 mg Tablet 5 mg PO QAM RF: 0 Myrbetriq 25 mg tablet extended release 24 hr 25 mg PO DAILY RF: 0 sennosides-docusate sodium [Senna Plus] 8.6-50 mg Tablet 1 tab-cap PO QAM RF: 0 atenolol 25 mg Tablet 25 mg PO TID PRN (Reason: HEART RATE >100) RF: 0 lisinopril 2.5 mg tablet 2.5 mg PO QAM RF: 0 Referrals Referrals: Jacobo Hutton [Primary Care Provider] -
[2021-08-11 19:04] LABS: Basophils # (auto) 0.01 K/uL (0-0.2); Basophils % (auto) 0.1 %; Eosinophils # (auto) 0.02 K/uL (0-0.5); Eosinophils % (auto) 0.1 %; Hematocrit (blood only) 42.2 % (37-47); Hemoglobin 13.8 g/dL (12.0-16.0); Immature Granulocytes # (auto) 0.02 K/uL (0.00-0.02); Immature Granulocytes % (auto) 0.1 %; Lymphocytes # (auto) 0.96 K/uL (1.2-3.4); Lymphocytes % (auto) 7.1 %; Mean Corpuscular Hemoglobin 25.7 pg (25-34); Mean Corpuscular Hgb Conc 32.7 g/dL (32-36); Mean Corpuscular Volume 78.4 fL (80-100); Monocytes # (auto) 0.69 K/uL (0.11-0.59); Monocytes % (auto) 5.1 %; Neutrophils # (auto) 11.76 K/uL (1.4-6.5); Neutrophils % (auto) 87.5 %; Platelet Count 436 K/uL (130-400); RDW Coefficient of Variation 15.1 % (11.5-14.5); RDW Standard Deviation 43.5 fL (36.4-46.3); Red Blood Count 5.38 M/uL (4.2-5.4); White Blood Count 13.46 K/uL (4.8-10.8)
[2021-08-11 19:06] LABS: Appearance Urine Clear (Clear); Bacteria Urine Automated Negative (Negative); Bilirubin Urine Negative (Negative); Blood Urine Trace (Negative); Color Urine Yellow; Epithelial Cell Urine Auto >30 /lpf (0-5); Glucose Urine UA 3+ (Negative); Ketones Urine Negative (Negative); Leukocyte Esterase Urine Negative (Negative); Nitrite Urine Negative (Negative); Protein Urine 3+ (Negative); Specific Gravity Urine 1.022 (1.000-1.030); Urobilinogen Urine Negative (Negative); pH Urine 5.5 (4.5-7.5)
[2021-08-11 19:11] LABS: INR 1.1 (0.9-1.1); Partial Thromboplastin Ratio 1.1; Partial Thromboplastin Time 30.5 Seconds (21.0-31.0); Prothrombin Time 11.2 Seconds (9.0-12.0)
[2021-08-11 19:19] LABS: Troponin I < 0.03 ng/ml (0-0.04)
[2021-08-11 19:21] LABS: Alanine Aminotransferase 16 U/L (7-52); Albumin Globulin Ratio 0.7 (0.9-2); Alkaline Phosphatase 100 U/L (34-104); Anion Gap 11 (3-11); Aspartate Aminotransferase 24 U/L (13-39); BUN Creatinine Ratio 11.4 (10-20); Bilirubin,Total 0.5 mg/dl (0.2-1.0); Blood Urea Nitrogen 16 mg/dl (6-23); Calcium 8.5 mg/dl (8.5-10.1); Carbon Dioxide 25 mmol/L (21-32); Chloride 97 mmol/L (98-107); Creatinine Clr Calc Pharmacy 26.2 ml/min; Est GFR (African American) 39.1 ml/min; Est GFR (Non-African American) 33.7 ml/min; Globulin 4.1 gm/dl (2.5-4.0); Glucose 164 mg/dl (70-99(Fasting)); Lipase 29 U/L (11-82); Magnesium 1.7 mg/dl (1.7-2.4); Potassium 3.6 mmol/L (3.5-5.1); Sodium 133 mmol/L (136-145); Total Protein 7.1 gm/dl (6.0-8.3)
--- NOTE | 2021-08-11 19:23 | CT Scan Report ---
CT head/brain wo con CLINICAL HISTORY: 85 years-old Female with nv weakness. Acute nausea and vomiting with weakness TECHNIQUE: Multiple axial CT images of the head were obtained without contrast. A dose lowering tech nique was utilized adhering to the principles of ALARA. COMPARISON: None. FINDINGS: No acute intracranial hemorrhage, midline shift, intracranial mass, hydrocephalus, territorial ischem ia or abnormal extra-axial collection. Age-related involutional changes. White matter hypodensities s uggest chronic microvascular ischemic disease. Cerebral vascular calcifications. Subcentimeter hypode nse focus of the right lentiform nucleus on image 14 is suggestive of a chronic lacunar infarct. The calvarium is intact. The paranasal sinuses, mastoid air cells, and middle ear cavities are clear . IMPRESSION: No acute intracranial abnormality. ACT 112: Negative or not required by law. The above report was generated using voice recognition software. It may contain grammatical, syntax o r spelling errors. Electronically signed by: Keshawn Henley M.D. 08/11/2021 7:21 PM
--- NOTE | 2021-08-11 19:34 | CT Scan Report ---
ABDOMEN AND PELVIS CT WITHOUT CONTRAST CT DOSE: 1524.00 mGy.cm HISTORY: Acute nausea and vomiting with weakness nv TECHNIQUE: Multiaxial CT images of the abdomen and pelvis were performed without contrast. A dose lo wering technique was utilized adhering to the principles of ALARA. COMPARISON STUDY: CT abdomen and pelvis 04/04/2021 FINDINGS: Limited exam secondary to upper extremity positioning and lack of contrast. Cardiomegaly with trace p ericardial effusion. Coronary artery calcifications. Trace pleural effusions. Minimal bibasilar atele ctasis/scarring. No pneumatosis or pneumoperitoneum. The spleen, pancreas, contracted gallbladder and adrenal glands are unremarkable. Hepatic steatosis with mild hepatomegaly. Mildly atrophic right kidney. 4 mm calcification of the superior pole right kidney. Renal vascular ca lcifications. No hydronephrosis. Urinary bladder wall thickening with partial distention. Uterus and adnexa appear unremarkable. Atherosclerosis of the aorta and branch vessels. There is no adenopathy. No bowel obstruction. Extensive colonic diverticulosis. There is wall thickening of the colon which i s most pronounced in the descending and sigmoid segments extending into the rectum. Pericolonic and p erirectal inflammation without abscess or perforation. Normal appendix. Unremarkable soft tissues. De mineralized appearance of the bones. Moderate L5 compression deformity with 6 mm retropulsion, unchan ged. IMPRESSION: 1. Findings compatible with a nonspecific colitis with wall thickening and pericolonic inflammatory s tranding most pronounced within the descending, sigmoid colon and rectum. 2. Extensive colonic diverticulosis. 3. Hepatic steatosis. 4. Additional findings as above. ACT 112: Negative or not required by law. The above report was generated using voice recognition software. It may contain grammatical, syntax o r spelling errors. Electronically signed by: Keshawn Henley M.D. 08/11/2021 7:32 PM
[2021-08-11 20:05] LABS: Influenza A virus by PCR Negative (Negative); Influenza B virus by PCR Negative (Negative)
[2021-08-11 22:31] LABS: Adenovirus F 40/41 PCR Not Detected (NotDetected); Astrovirus PCR Not Detected (NotDetected); Campylobacter PCR Not Detected (NotDetected); Cryptosporidium PCR Not Detected (NotDetected); Cyclospora cayetanensis PCR Not Detected (NotDetected); Entamoeba histolytica PCR Not Detected (NotDetected); Enteroaggregative E.coli(EAEC) Not Detected (NotDetected); Enteropathogenic E.coli (EPEC) Not Detected (NotDetected); Enterotoxigenic E.coli (ETEC) Not Detected (NotDetected); Giardia lamblia PCR Not Detected (NotDetected); Norovirus GI/GII PCR Not Detected (NotDetected); Plesiomonas shigelloides PCR Not Detected (NotDetected); Rotavirus A PCR Not Detected (NotDetected); Salmonella PCR Not Detected (NotDetected); Sapovirus PCR Not Detected (NotDetected); Shiga-like Toxin E.coli (STEC) Not Detected (NotDetected); Shigella/Enteroinvasive E.coli Not Detected (NotDetected); Vibrio cholerae PCR Not Detected (NotDetected); Vibrio species PCR Not Detected (NotDetected); Yersinia enterocolitica PCR Not Detected (NotDetected)
[2021-08-11 23:39] LABS: Cdiff Antigen Positive
[2021-08-11 23:40] LABS: Cdiff Toxin A+B Negative Cdiff Toxin (Negative)
[2021-08-12] MEDS ORDERED: SODIUM CHLORIDE 0.9% 1000ML 1,000 ML IV SCH (00:15)
[2021-08-12] MEDS ORDERED: RASPBERRY SYRUP 5 ML UDP PO STA (00:15)
[2021-08-12] MEDS ORDERED: VANCOMYCIN HCL 125 MG/2.5ML SOLN PO STA (00:15)
[2021-08-12] MEDS ORDERED: ONDANSETRON INJ 2 MG/ML 2 ML VIAL IV PRN (03:55)
[2021-08-12] MEDS ORDERED: ACETAMINOPHEN 325 MG TAB PO PRN (03:55)
[2021-08-12] MEDS ORDERED: ATENOLOL 25 MG TABLET PO PRN (03:55)
--- NOTE | 2021-08-12 05:01 | History and Physical Report ---
CHIEF COMPLAINT: Nausea, vomiting, diarrhea, abdominal discomfort, weakness. HISTORY OF PRESENT ILLNESS: This 85-year-old female with past medical history significant for chronic right-sided heart failure; severe pulmonary hypertension; aortic valve sclerosis; mild mitral regurgitation; hypertension; type 2 diabetes, currently not on medication; chronic kidney disease, baseline creatinine 1.6; chronic anemia, baseline hemoglobin 11; history of diverticulosis, diverticular bleed; upper GI bleed; prior tobacco use; and history of atrial fibrillation, not a candidate for anticoagulation; who lives at [facility], was brought in by her niece because of nausea, vomiting, diarrhea. Patient says since last 1 week, she has diarrhea and also having nausea, vomiting, and not eating much. Weak and tired. Her CAT scan showing nonspecific colitis and Clostridium difficile came back positive. ER physician talked to niece on the phone and tried to send her with medications, but her niece requested patient to keep in the hospital for 1 or 2 days with fluids and treating for Clostridium difficile colitis. As per patient has chronic headache, chronic runny nose, chronic on and off cough. Denies any blurred visions, no sore throat, no difficulty swallowing, no chest pain, no shortness of breath. The patient also has some abdominal discomfort, is getting better as per the patient. Normal bladder movements. Ambulates with a walker. Currently, hemodynamically stable. ALLERGIES: UNASYN, CEPHALOSPORIN, CIPRO. PAST MEDICAL HISTORY: As mentioned above. PAST SURGICAL HISTORY: Ankle surgery, knee surgery. FAMILY HISTORY: Significant for hypertension. SOCIAL HISTORY: Positive tobacco use. No alcohol. Currently lives in a fdc. MEDICATIONS: Tylenol 650 mg p.o. q.4 hours p.r.n., atenolol 25 mg p.o. t.i.d. p.r.n. for heart rate greater than 120, atorvastatin 20 mg p.o. at bedtime, vitamin D 125 mcg p.o. daily, diltiazem extended release 240 mg p.o. a.m., famotidine 20 mg p.o. a.m., farxiga 5 mg p.o. a.m., ferrous sulfate 325 mg p.o. 3 times a week, lisinopril 2.5 mg p.o. a.m., metoprolol succinate 50 mg p.o. b.i.d., mirabegron 25 mg p.o. daily, Senokot-S 1 tablet p.o. a.m. REVIEW OF SYSTEMS: As per HPI. Rest of review of system is negative. PHYSICAL EXAMINATION: GENERAL: The patient is old and frail, not in acute distress. VITAL SIGNS: Temperature 36.7, pulse 89, respiratory rate 24, blood pressure 156/83, oxygen 97% on room air. HEENT: Pupils equal, round and reactive to light. Oral mucosa moist. NECK: No JVD, no neck masses. CARDIOVASCULAR: S1 and S2 heard, regular rate and rhythm. No murmur, no gallop. RESPIRATORY SYSTEM: Normal AP diameter. No accessory muscle use. No wheezing, no crackles. ABDOMEN: Soft, bowel sounds present, nontender, no distention. CENTRAL NERVOUS SYSTEM: Alert and oriented. Speech is clear. No facial droop. obeys simple commands. Moves extremities. EXTREMITIES: No edema, no erythema. LABORATORY DATA: WBC 13.4, hemoglobin 13.8, hematocrit 42.2, platelets 436. PT 11.1, INR 1.1, APTT 30.5. Sodium 133, potassium 3.6, chloride 97, bicarbonate 25, BUN 16, creatinine 1.4, serum glucose 164. Lactate 1.7, calcium 8.5, magnesium 1.7. Total bilirubin 0.5, AST 24, ALT 16, alkaline phosphatase 100. Troponin I less than 0.03. Lipase 29. Procalcitonin 0.28. Urinalysis, +3 protein, +3 glucose. Stool BioFire, Clostridium difficile positive. Influenza A and B negative. COVID rapid test negative. IMAGING DATA: CT of the head without contrast, no acute abnormality seen. Chest x-ray, cardiomegaly without overt pulmonary edema, atypical opacities, likely secondary to some mentioned history from the patient, this could be correlated, follow PA, lateral views of the chest. CT abdomen and pelvis without contrast shows compatible with nonspecific colitis, most prominent in the descending sigmoid colon and rectum, extensive colonic diverticulosis, hepatic steatosis. EKG: Atrial fibrillation, rate of 98, nonspecific ST or T-wave abnormalities. ASSESSMENT AND PLAN: An 85-year-old female who presents with nausea, vomiting, abdominal pain, diarrhea, Clostridium difficile. 1. Nausea, vomiting, abdominal pain secondary to Clostridium difficile colitis, nonspecific colitis on CAT scan, started on p.o. vancomycin 125 mg p.o. q.6 hours. We will continue with gentle fluids, clear liquid diet. We will monitor in the medical floor. 2. History of diabetes: Currently not on any medications. We will place her on insulin sliding scale. Follow HbA1c level. Follow the blood sugars. 3. Chronic kidney disease, stage III: Baseline creatinine 1.2, current creatinine 1.4. We will follow the labs. 4. History of atrial fibrillation, rate controlled with Cardizem and metoprolol, not on anticoagulation. Will monitor. 5. History of chronic anemia, baseline hemoglobin of 11, currently her hemoglobin is 13.8. We will follow the labs. 6. Chronic right sided heart failure. Continue metoprolol, lisinopril. The patient is not on any diuretics. The patient is getting fluids. We will monitor for any volume overload. 7. Hx of severe pulmonary hypertension. 8. Hypertension: Continue home medication of metoprolol, Cardizem, and lisinopril. Monitor the blood pressure. 9. DM. ISS. will monitor. 10.. Deep venous thrombosis prophylaxis: Sequential compression devices, heparin subcutaneous. CODE STATUS: DNR/DNI as per my discussion with the patient. DISPOSITION: Closely monitor in the medical floor. PT/OT prior to discharge. Social service to help with discharge planning. Transfer back to [facility] when stable. Job ID: [id number] MTDD
[2021-08-12] MEDS: SODIUM CHLORIDE 0.45 % 1,000 ML IV SCH ×2 (05:07→17:44)
[2021-08-12] MEDS: VANCOMYCIN HCL 125 MG/2.5ML SOLN PO SCH ×4 (05:08→23:09)
[2021-08-12] MEDS: RASPBERRY SYRUP 5 ML UDP PO SCH ×4 (05:08→23:09)
[2021-08-12 06:48] LABS: Basophils # (auto) 0.01 K/uL (0-0.2); Basophils % (auto) 0.1 %; Eosinophils # (auto) 0.06 K/uL (0-0.5); Eosinophils % (auto) 0.7 %; Hematocrit (blood only) 39.1 % (37-47); Hemoglobin 12.7 g/dL (12.0-16.0); Immature Granulocytes # (auto) 0.02 K/uL (0.00-0.02); Immature Granulocytes % (auto) 0.2 %; Lymphocytes # (auto) 0.71 K/uL (1.2-3.4); Lymphocytes % (auto) 8.6 %; Mean Corpuscular Hemoglobin 25.6 pg (25-34); Mean Corpuscular Hgb Conc 32.5 g/dL (32-36); Mean Corpuscular Volume 78.7 fL (80-100); Mean Platelet Volume 9.1 fL (7.4-10.4); Monocytes # (auto) 1.12 K/uL (0.11-0.59); Monocytes % (auto) 13.6 %; Neutrophils # (auto) 6.31 K/uL (1.4-6.5); Neutrophils % (auto) 76.8 %; Platelet Count 360 K/uL (130-400); RDW Coefficient of Variation 15.1 % (11.5-14.5); RDW Standard Deviation 43.1 fL (36.4-46.3); Red Blood Count 4.97 M/uL (4.2-5.4); White Blood Count 8.23 K/uL (4.8-10.8)
[2021-08-12 07:23] LABS: BUN Creatinine Ratio 11.1 (10-20); Calcium 7.8 mg/dl (8.5-10.1); Est GFR (African American) 44.4 ml/min; Est GFR (Non-African American) 38.3 ml/min; Magnesium 1.6 mg/dl (1.7-2.4); Potassium 3.2 mmol/L (3.5-5.1)
--- NOTE | 2021-08-12 08:15 | Hospitalist Progress Note ---
Date of Service August 12, 2021 Assessment & Plan Admission and Anticipated Discharge Date Admission Date: August 12, 2021 Subjective Addendum: Lavern Sloan. ISS. Thanks Results & Data Results & Data ([facility]) Vital Signs (Past 12 Hours) Vital Signs Temp Pulse Pulse Pulse Resp BP BP 08/12/21 03:30 36.7 C 84 18 147/78 H 08/12/21 03:25 78 16 08/12/21 01:40 89 28 H 08/12/21 01:30 86 29 H 08/12/21 01:20 83 24 08/12/21 01:10 83 18 08/12/21 01:00 82 24 156/83 H 08/12/21 00:50 81 14 08/12/21 00:41 86 27 H 153/83 H 08/12/21 00:40 83 27 H 08/12/21 00:30 87 26 H 08/12/21 00:20 84 13 08/12/21 00:10 88 12 08/12/21 00:04 81 18 08/12/21 00:00 94 H 15 08/11/21 23:50 82 18 08/11/21 23:40 85 24 08/11/21 23:30 92 H 17 08/11/21 23:20 93 H 18 08/11/21 23:10 92 H 18 08/11/21 23:00 85 22 08/11/21 22:50 85 17 08/11/21 22:40 83 20 08/11/21 22:30 88 17 08/11/21 22:20 82 18 08/11/21 22:10 101 H 17 08/11/21 22:00 84 15 08/11/21 21:50 92 H 22 08/11/21 21:40 85 21 08/11/21 21:39 90 19 148/90 H 08/11/21 21:30 90 24 08/11/21 21:20 92 H 26 H 08/11/21 21:11 18 08/11/21 21:10 87 20 08/11/21 21:00 87 14 08/11/21 20:50 89 20 08/11/21 20:40 87 20 08/11/21 20:30 89 17 08/11/21 20:20 97 H 15 Pulse Ox 08/12/21 03:30 95 08/12/21 03:25 99 08/12/21 01:40 97 08/12/21 01:30 98 08/12/21 01:20 98 08/12/21 01:10 99 08/12/21 01:00 96 08/12/21 00:50 99 08/12/21 00:41 97 08/12/21 00:40 98 08/12/21 00:30 97 08/12/21 00:20 99 08/12/21 00:10 99 08/12/21 00:04 95 08/12/21 00:00 99 08/11/21 23:50 98 08/11/21 23:40 98 08/11/21 23:30 99 08/11/21 23:20 100 08/11/21 23:10 99 08/11/21 23:00 99 08/11/21 22:50 99 08/11/21 22:40 100 08/11/21 22:30 99 08/11/21 22:20 99 08/11/21 22:10 98 08/11/21 22:00 99 08/11/21 21:50 99 08/11/21 21:40 98 08/11/21 21:39 98 08/11/21 21:30 99 08/11/21 21:20 99 08/11/21 21:11 97 08/11/21 21:10 99 08/11/21 21:00 99 08/11/21 20:50 100 08/11/21 20:40 99 08/11/21 20:30 98 08/11/21 20:20 97
[2021-08-12] MEDS: dilTIAZem HCL 240 MG CAPCR PO SCH (09:30)
[2021-08-12] MEDS: DICLOFENAC SOD 1% GEL 100 GM TUBE EXT SCH ×3 (09:30→20:43)
[2021-08-12] MEDS: METOPROLOL SUCC 50MG EXT REL TAB PO SCH ×2 (09:31→20:43)
[2021-08-12] MEDS: lisinopril 2.5 MG TAB PO SCH (09:31)
[2021-08-12] MEDS: FAMOTIDINE 20 MG TAB PO SCH (09:31)
[2021-08-12] MEDS: MIRABEGRON ER 25 MG TAB PO SCH (09:32)
[2021-08-12] MEDS: HEPARIN SOD 5,000 UNIT/0.5 ML VIAL SQ SCH ×2 (09:32→20:43)
[2021-08-12] MEDS: INSULIN ASPART PER UNIT SC SCH ×4 (09:42→20:36)
--- NOTE | 2021-08-12 10:03 | Electrocardiogram Report ---
Test Reason : Blood Pressure : / mmHG Vent. Rate : 098 BPM Atrial Rate : 288 BPM P-R Int : 000 ms QRS Dur : 084 ms QT Int : 382 ms P-R-T Axes : 000 072 062 degrees QTc Int : 487 ms Atrial fibrillation Nonspecific ST and T wave abnormality Abnormal ECG When compared with ECG of 03-APR-2021 20:23, Nonspecific T wave abnormality has replaced inverted T waves in Inferior leads infro Lateral ST depression has resolved Confirmed by Rafa Ignacio ([id number]) on 08/12/2021 10:03:16 AM Referred By: REFERRED SELF Confirmed By:Rafa Ignacio
[2021-08-12] MEDS: CHOLECALCIFEROL 5,000 UNITS 125 MCG TAB PO SCH (12:48)
--- NOTE | 2021-08-12 17:06 | Communication Note ---
Date of Service: August 12, 2021 Evaluated patient at bedside. No complaints. States that the diarrhea has improved.
[2021-08-12] MEDS ORDERED: KETOCONAZOLE 2% CR 15 GM TUBE EXT SCH (21:00)
[2021-08-12] MEDS ORDERED: ATORVASTATIN 10 MG TAB PO SCH (21:00)
[2021-08-13] MEDS: RASPBERRY SYRUP 5 ML UDP PO SCH ×2 (05:46→12:35)
[2021-08-13] MEDS: VANCOMYCIN HCL 125 MG/2.5ML SOLN PO SCH ×2 (05:47→12:35)
[2021-08-13 06:42] LABS: Estimated Average Glucose 212 mg/dl
[2021-08-13] MEDS: INSULIN ASPART PER UNIT SC SCH ×2 (09:09→12:37)
[2021-08-13] MEDS: DICLOFENAC SOD 1% GEL 100 GM TUBE EXT SCH ×2 (09:10→14:29)
[2021-08-13] MEDS: dilTIAZem HCL 240 MG CAPCR PO SCH (09:10)
[2021-08-13] MEDS: lisinopril 2.5 MG TAB PO SCH (09:11)
[2021-08-13] MEDS: MIRABEGRON ER 25 MG TAB PO SCH (09:11)
[2021-08-13] MEDS: FAMOTIDINE 20 MG TAB PO SCH (09:11)
[2021-08-13] MEDS: METOPROLOL SUCC 50MG EXT REL TAB PO SCH (09:11)
[2021-08-13] MEDS: HEPARIN SOD 5,000 UNIT/0.5 ML VIAL SQ SCH (09:11)
[2021-08-13] MEDS ORDERED: FERROUS SULFATE 325 MG TAB PO SCH (11:30)
[2021-08-13] MEDS: CHOLECALCIFEROL 5,000 UNITS 125 MCG TAB PO SCH (12:35)
--- NOTE | 2021-08-13 14:44 | Discharge Summary ---
Date of Service August 13, 2021 Admission HPI Per Admitting Provider Patient presenting with nausea vomiting diarrhea abdominal discomfort. Patient noted to have C. difficile colitis. Patient started on vancomycin patient's symptoms have resolved and no further diarrhea as well. Patient feeling well eating food but I have walked in today. Discussed about discharge patient in agreement. Discussed with with case management and patient can go back today to her facility. Patient denies any active chest pain shortness of breath nausea vomiting or diarrhea denies any abdominal pain. Principal Diagnosis C. difficile colitis Discharge Exam Constitutional:WD/WN, vitals as above Neck: trachea midline, no thyromegaly Respiratory: normal respiratory effort, lungs clear to auscultationAuscultation:no rhonchi and no wheezes Cardiovascular:RRR, no murmur, no edemaHeart Sounds:no murmur Gastrointestinal (Abdomen):normal bowel sounds, soft, nontender, no hepatosplenomegaly Musculoskeletal:no cyanosis or clubbing, extremities motor strength 5/5 Skin: no rashes, warm and dry Neurologic: AA+Ox3, euthymic affect Discharge Data Allergies Allergy/AdvReac Type Severity Reaction Status Date / Time ampicillin [From Unasyn] Allergy Intermediate Rash Verified 08/11/21 18:29 Cephalosporins Allergy Intermediate Rash Verified 08/11/21 18:29 ciprofloxacin [From Cipro] Allergy Intermediate Rash Verified 08/11/21 18:29 sulbactam [From Unasyn] Allergy Intermediate Rash Verified 08/11/21 18:29 Consultations 08/12/21 00:16 ED Decision to Admit Stat 08/12/21 00:20 ED Decision to Admit Stat Ordered Studies 08/11/21 18:11 CT abd pelvis wo con Stat CT head/brain wo con Stat Hospital Course (1) C. difficile colitis: Continue vancomycin p.o. for 8 more days. Total Time Total Time Spent Total Time Spent (In Minutes): 35 minutes Discharge Plan Discharge Items Patient Disposition: Transfer Long-Term Fac Reason For Visit: NAUSEA, VOMITING, DIARRHEA Discharge Diagnosis: C diff colitis Activity: Resume your previous activity Non-emergency contact: Primary Care Provider Call non-emergency contact if: your symptoms worsen Follow-up/Referrals: Jacobo Hutton [Primary Care Provider] - Diet: Carb Consistent or DM2 and Heart Healthy Addtl Attending Provider Instructions: Ample oral hydration Pending Studies at Discharge: No Stand-Alone Forms: My [facility] Skilled Items Patient informed of condition?: Yes DNR: Yes Discharge Level of Care: Other Communicable Disease: Yes Discharge Prognosis: Improving Lines: None Urinary Catheter: No Medications and DC Order Prescriptions: New vancomycin 1,000 mg Recon Soln 125 mg PO Q6 8 Days Qty: 32 RF: 0 Continued famotidine 20 mg tablet 20 mg PO DAILY RF: 0 ferrous sulfate 325 mg (65 mg iron) tablet 325 mg PO 3XWK RF: 0 metoprolol succinate 50 mg tablet extended release 24 hr 50 mg PO BID Qty: 180 RF: 3 diltiazem HCl 240 mg capsule,extended release 24hr 240 mg PO QAM Qty: 90 RF: 3 tolnaftate 1 % Powder 1 applic TOPICAL HS RF: 0 acetaminophen [Tylenol] 325 mg Tablet 650 mg PO Q4 MDD 3 GRAMS/24 HOURS. PRN (Reason: fever/pain) RF: 0 magnesium hydroxide [Milk of Magnesia] 400 mg/5 mL Suspension 30 ml PO DAILY PRN (Reason: .no bm 3 days) RF: 0 atorvastatin 10 mg Tablet 10 mg PO HS RF: 0 ketoconazole 2 % Cream 1 applic TOPICAL HS RF: 0 Nizoral A-D 1 % Shampoo 1 applic TOPICAL 2XWK RF: 0 Dermacerin Cream 1 applic TOPICAL HS RF: 0 soap Shampoo 1 ea TOPICAL HS RF: 0 diclofenac sodium 1 % Gel 2 g TOPICAL TID RF: 0 cholecalciferol (vitamin D3) [Vitamin D3] 125 mcg (5,000 unit) Tablet 125 mcg PO QDL RF: 0 Farxiga 5 mg Tablet 5 mg PO QAM RF: 0 Myrbetriq 25 mg tablet extended release 24 hr 25 mg PO DAILY RF: 0 sennosides-docusate sodium [Senna Plus] 8.6-50 mg Tablet 1 tab-cap PO QAM RF: 0 atenolol 25 mg Tablet 25 mg PO TID PRN (Reason: HEART RATE >100) RF: 0 lisinopril 2.5 mg tablet 2.5 mg PO QAM RF: 0 Discharge Orders: Discharge Order (Routine); Ordered 08/13/21 Ordered By: Dedrick Lester Admission Data Admit Date/Time: 08/12/21 02:11 Attending Provider: Dedrick Lester Admit Provider: Manfred Galo Primary Care Provider: Jacobo Hutton Other Providers: Manfred Galo ; [facility]
== END 2021-08-13 17:28 | DRG 372 ==
LOC: ED 18:03 → OBSVTOIN 08-12 02:11 → INTOOBSV 08-12 02:11 → 3N 08-12 02:11